=== PATIENT | female | born 1990 | race Caucasian/White ===

== ENCOUNTER 2017-02-08 19:43 | Emergency (ER) | payer MEDICAID, OTHER ==
[~2017-02-08] VITALS: Ht 172.7 cm; Wt 104.3 kg
[~2017-02-08 19:43] MED LIST: PARO-49 PO
[2017-02-08] MEDS ORDERED: LEVO75TA6 (19:53)
[2017-02-08] MEDS ORDERED: CETI10TA17 (19:53)
[2017-02-08] MEDS ORDERED: OMEP20CA12 (19:53)
[2017-02-08] MEDS ORDERED: TRAM50TA2 (19:53)
--- NOTE | 2017-02-08 19:56 | ED GU-Female ---
General Chief Complaint: -Female Stated Complaint: ABD PAIN Nursing Triage Note: patient reports 2 days of cramping along with her menstrual period Nursing Sepsis Screen: No Definite Risk Source: patient Exam Limitations: no limitations History of Present Illness Time seen by provider: 19:56 Initial Comments 26-year-old female patient presents to the emergency department complains of today onset of lower abdominal cramping with her menstrual period. States menstrual period started on 02/06/17. Previous menstrual period was on . States she is very irregular. Patient states she has had a previous miscarriage and was concerned that she was maybe having a miscarriage today. Denies taking a test at home. Patient denies any symptoms which would make her think she was . Denies contacting her family practitioner. Denies taking Tylenol or ibuprofen at home. Timing/Duration: intermittent, other (2 day onset.) Severity/Quality: cramping Location: suprapubic Radiation: none Activities at Onset: none Prior Genitourinary Problems: similar symptoms Sexual Golden History: less than 2 months ago, single partner Modifying Factors: Worsens With Other (denies modifying factors. Denies using jpfs-zvv-uljzdco medication for symptoms.) Allergies and Home Medications Allergies Coded Allergies: latex (Verified Allergy, Unknown, 10/16/15) Home Medications Cetirizine HCl 10 Mg Tablet #30 (Reported) Levothyroxine Sodium 75 Mcg Tablet #90 (Reported) Omeprazole 20 Mg Capsule.dr #180 (Reported) Ondansetron 8 Mg Tab.rapdis #10 8 MG PO Q6H PRN PRN NAUSEA Prescribed by: DINO SMITH on 02/08/172106 Tramadol HCl 50 Mg Tablet #28 (Reported) Constitutional: no symptoms reported Respiratory: no symptoms reported Cardiovascular: no symptoms reported Gastrointestinal: see HPI abdominal pain (suprapubic abdominal cramping)No constipation, No diarrhea, No heartburn, No loss of appetite, No melena, nauseaNo vomiting Genitourinary: see HPIdenies burning, denies discharge, denies dysuria, denies frequency, denies flank pain, denies hematuria, pain (suprapubic abdominal cramping) Musculoskeletal: no symptoms reported Skin: no symptoms reported Psychiatric/Neurological: No Symptoms Reported All Other Systemes Reviewed Negative Unless Noted: Yes (Negative excepted noted.) Past Cwiiimu-Jyhpkq-Nhghkm Hx Patient Social History Alcohol Use: Occasionally Uses Recreational Drug Use: No Smoking Status: Current Someday Smoker Type Used: Cigarettes Recent Foreign Travel: No Contact w/Someone Who Travel: No Recent Infectious Disease Expo: No Recent Hopitalizations: No Immunizations Up To Date Tetanus Booster (TDap): Unknown Surgeries HX Surgeries: Yes (BREAST BIOPSY--BENIGN) Surgeries: Breast Respiratory Hx Respiratory Disorders: No Cardiovascular Hx Cardiac Disorders: No Neurological Hx Neurological Disorders: No Reproductive System Hx Reproductive Disorders: No Sexually Transmitted Disease: No HIV/AIDS: No Female Reproductive Disorders: Denies Genitourinary Hx Genitourinary Disorders: No Gastrointestinal Hx Gastrointestinal Disorders: No Musculoskeletal Hx Musculoskeletal Disorders: No Endocrine Hx Endocrine Disorders: No HEENT HX ENT Disorders: No Cancer Hx Cancer: No Psychosocial Hx Psychiatric Problems: Yes Behavioral Health Disorders: Depression Integumentary HX Skin/Integumentary Disorder: No Blood Transfusions Hx Blood Disorders: No Adverse Reaction to a Blood Tr: No Reviewed Nursing Assessment Reviewed/Agree w Nursing PMH: Yes Family Medical History Significant Family History: No Pertinent Family Hx Physical Exam Vital Signs Vital Sign - Last 12Hours 02/08/17 19:50 Temp 98.4 Pulse 85 Resp 18 B/P 119/82 Pulse Ox 97 Capillary Refill : Less Than 3 Seconds General Appearance: WD/WN no apparent distress HEENT: PERRL/EOMI pharynx normal Neck: supple normal inspection Cardiovascular: regular rate, rhythm no murmur Respiratory: lungs clear normal breath sounds no respiratory distress Gastrointestinal: normal bowel sounds soft no organomegalyNo distended, guarding (right upper quadrant and epigastric)No rebound, tenderness ( bilateral upper quadrant and epigastric. Unable to reproduce lower abdominal tenderness.) other (positive Colvin sign. Patient denies knowledge of upper abdominal pain or tenderness. Denies previous history of similar symptoms.) Back: normal inspection no CVA tenderness Extremities: normal inspection normal capillary refill Neurologic/Psychiatric: alert normal mood/affect oriented x 3 Skin: normal color warm/dry Focused Exam Lactic Acid Level Laboratory Tests Test 02/08/17 20:20 Alanine Aminotransferase (ALT/SGPT) 22U/L (0-55) Albumin 3.8G/DL (3.2-4.5) Alkaline Phosphatase 96U/L (40-136) Anion Gap 12MMOL/L (5-14) Aspartate Amino Transf (AST/SGOT) 20U/L (5-34) BUN/Creatinine Ratio 14 Blood Urea Nitrogen 11MG/DL (7-18) Calcium Level 9.0MG/DL (8.5-10.1) Carbon Dioxide Level 20MMOL/L (21-32) L Chloride Level 109MMOL/L (98-107) H Creatinine 0.76MG/DL (0.60-1.30) Estimat Glomerular Filtration Rate > 60 Glucose Level 100MG/DL (70-105) Lipase 19U/L (8-78) Potassium Level 4.2MMOL/L (3.6-5.0) Sodium Level 141MMOL/L (135-145) Total Bilirubin 0.2MG/DL (0.1-1.0) Total Protein 6.4G/DL (6.4-8.2) Progress/Results/Core Measures Results/Orders Lab Results Laboratory Tests Test 02/08/17 19:59 02/08/17 20:20 Range/Units Urine Bacteria TRACE /HPF Urine Bilirubin NEGATIVE NEGATIVE Urine Casts NONE /LPF Urine Clarity SLIGHTLY CLOUDY Urine Color YELLOW Urine Crystals NONE /LPF Urine Culture Indicated NO Urine Glucose (UA) NEGATIVE NEGATIVE Urine Ketones NEGATIVE NEGATIVE Urine Leukocyte Esterase NEGATIVE NEGATIVE Urine Mucus NEGATIVE /LPF Urine Nitrite NEGATIVE NEGATIVE Urine Protein NEGATIVE NEGATIVE Urine RBC 10-25 H /HPF Urine RBC (Auto) 5+ H NEGATIVE Urine Specific [place] 1.010 L 1.016-1.022 Urine Squamous Epithelial Cells 2-5 /HPF Urine Urobilinogen NORMAL NORMAL MG/DL Urine WBC NONE /HPF Urine pH 7 5-9 Alanine Aminotransferase (ALT/SGPT) 22 0-55 U/L Albumin 3.8 3.2-4.5 G/DL Alkaline Phosphatase 96 40-136 U/L Anion Gap 12 5-14 MMOL/L Aspartate Amino Transf (AST/SGOT) 20 5-34 U/L BUN/Creatinine Ratio 14 Basophils # (Auto) 0.0 0.0-0.1 10^3/uL Basophils (%) (Auto) 0 0-10 % Blood Urea Nitrogen 11 7-18 MG/DL Calcium Level 9.0 8.5-10.1 MG/DL Carbon Dioxide Level 20 L 21-32 MMOL/L Chloride Level 109 H 98-107 MMOL/L Creatinine 0.76 0.60-1.30 MG/DL Eosinophils # (Auto) 0.2 0.0-0.3 10^3/uL Eosinophils (%) (Auto) 2 0-10 % Estimat Glomerular Filtration Rate > 60 Glucose Level 100 70-105 MG/DL Hematocrit 38 35-52 % Hemoglobin 12.7 11.5-16.0 G/DL Lipase 19 8-78 U/L Lymphocytes # (Auto) 3.2 1.0-4.0 X 10^3 Lymphocytes (%) (Auto) 32 12-44 % Mean Corpuscular Hemoglobin 30 25-34 PG Mean Corpuscular Hemoglobin Concent 33 32-36 G/DL Mean Corpuscular Volume 90 80-99 FL Mean Platelet Volume 10.2 7.4-10.4 FL Monocytes # (Auto) 0.7 0.0-1.0 X 10^3 Monocytes (%) (Auto) 7 0-12 % Neutrophils # (Auto) 5.9 1.8-7.8 X 10^3 Neutrophils (%) (Auto) 59 42-75 % Platelet Count 334 130-400 10^3/uL Potassium Level 4.2 3.6-5.0 MMOL/L Red Blood Count 4.27 L 4.35-5.85 10^6/uL Red Cell Distribution Width 13.6 10.0-14.5 % Sodium Level 141 135-145 MMOL/L Total Bilirubin 0.2 0.1-1.0 MG/DL Total Protein 6.4 6.4-8.2 G/DL White Blood Count 10.0 4.3-11.0 10^3/uL My Orders Orders-DINO SMITH Ua Culture If Indicated (02/08/17 19:58) Urine Bedside (02/08/17 19:58) Cbc With Automated Diff (02/08/17 20:10) Comprehensive Metabolic Panel (02/08/17 20:10) Lipase (02/08/17 20:10) Saline Lock/Iv-Start (02/08/17 20:10) Us Gallbladder [id number] (02/08/17 20:10) Ketorolac Injection (Toradol Injection) (02/08/17 20:10) Ondansetron Injection (Zofran Injectio (02/08/17 20:15) Ns Iv 1000 Ml (Sodium Chloride 0.9%) (02/08/17 20:10) Medications Given in ED Current Medications Medications Dose Ordered Sig/Ena Route Start Time Stop Time Status Last Admin Dose Admin Ondansetron HCl 4 mg 4 mg ONCE ONCE IVP 02/08/17 20:15 02/08/17 20:16 DC 02/08/17 20:33 4 MG Sodium Chloride 1,000 ml @ 0 mls/hr Q0M ONCE IV 02/08/17 20:10 02/08/17 20:12 DC 02/08/17 20:33 0 MLS/HR Vital Signs/I&O Vital Sign - Last 12Hours 02/08/17 19:50 Temp 98.4 Pulse 85 Resp 18 B/P 119/82 Pulse Ox 97 Blood Pressure Mean: 94 Diagnostic Imaging Diagonstic Imaging: Ultrasound Plain Films/CT/US/NM/MRI: other (gallbladder) Comments Discussion: Sonographic evaluation of the right upper quadrant was performed. The liver is enlarged, measuring 20.4 cm on the right. The liver is normal in echotexture. No liver mass identified. The gallbladder is contracted. No shadowing stone identified. No pericholecystic fluid. No evidence of biliary duct dilatation. The common bile duct is normal measuring 0.5 cm. The pancreas is mostly obscured due to overlying bowel gas. The right kidney appears normal in echotexture and size without evidence of hydronephrosis or renal mass. The right kidney measures 10.4 cm. There is no ascites or abnormal bowel loops identified. No sonographic Colvin sign was reported. Impression: 1. Hepatomegaly. 2. Contracted gallbladder. Dictated on workstation # [id number] Reviewed: Reviewed by Me (radiology report reviewed by me) Departure Communication Progress Notes Laboratory and diagnostic findings discussed with the patient. Patient noted to be playing on her phone and laying on her right side. Patient reports symptoms are completely resolved with medications given in the emergency department. Patient now stating she has appointment tomorrow with Dayday Ga APRN for regular checkup. Patient instructed to follow-up with him as previously scheduled tomorrow. Proceed with discharge to home. Impression Impression: Primary Impression: Menstrual cramps Additional Impressions: Right upper quadrant abdominal tenderness Qualified Code: R10.821 - Right upper quadrant rebound abdominal tenderness Nausea Disposition: 01 HOME, SELF-CARE Condition: Improved Departure-Patient Inst. Decision time for Depature: 21:10 Referrals: [facility] (PCP/Family) Primary Care Physician Patient Instructions: Acute Abdomen (Belly Pain), Adult (DC), Menstrual Cramps (DC) Add. Discharge Instructions: All discharge instructions reviewed with patient and/or family. Voiced understanding. Medications as instructed. Tylenol extra strength over-the- counter as directed for pain or cramps. Ibuprofen 800 mg by mouth every 8 hours as needed for pain or cramps. Drink plenty of fluids. Follow-up with your primary care physician for recheck as an outpatient, call tomorrow morning for appointment time. Return to the emergency department for worsened symptoms or any other concerns. Scripts Ondansetron (Ondansetron Odt)8 Mg Tab.rapdis8 Mg PO Q6H PRN NAUSEA #10 TAB Ref 0 Prov:DINO SMITH 02/08/17 DINO SMITH Feb 08, 2017 19:56
[2017-02-08 20:05] LABS: BILIRUBIN,URINE NEGATIVE (NEGATIVE); KETONES,URINE NEGATIVE (NEGATIVE); LEUKOCYTE ESTERASE ,URINE NEGATIVE (NEGATIVE); NITRITE,URINE NEGATIVE (NEGATIVE); PH,URINE 7 (5-9); PROTEIN,URINE NEGATIVE (NEGATIVE); UROBILINOGEN,URINE NORMAL (NORMAL)
[2017-02-08] MEDS ORDERED: NS IV 1000 ML 1,000 ML IV ONE (20:10)
[2017-02-08] MEDS ORDERED: KETOROLAC 30 MG/ML VIAL IVP STA (20:10)
[2017-02-08] MEDS ORDERED: ONDANSETRON 4 MG/2 ML (SDV) Z0FRAN IVP ONE (20:15)
[2017-02-08 20:32] LABS: BASOPHILS % (AUTO) 0 % (0-10); EOSINOPHILS % (AUTO) 2 % (0-10); LYMPHOCYTES % (AUTO) 32 % (12-44); MEAN CORPUSCULAR HGB CONC 33 G/DL (32-36); MEAN CORPUSCULAR VOLUME 90 FL (80-99); MEAN PLATELET VOLUME 10.2 FL (7.4-10.4); MONOCYTES % (AUTO) 7 % (0-12); NEUTROPHILS % (AUTO) 59 % (42-75); RED CELL DISTRIBUTION WIDTH 13.6 % (10.0-14.5)
[2017-02-08 20:35] LABS: LYMPHOCYTES # (AUTO) 3.2 X 10^3 (1.0-4.0); MEAN CORPUSCULAR HEMOGLOBIN 30 PG (25-34); NEUTROPHILS # (AUTO) 5.9 X 10^3 (1.8-7.8); PLATELET COUNT 334 10^3/uL (130-400); RED BLOOD COUNT 4.27 10^6/uL (4.35-5.85)
[2017-02-08 20:36] LABS: EOSINOPHILS # (AUTO) 0.2 10^3/uL (0.0-0.3); MONOCYTES # (AUTO) 0.7 X 10^3 (0.0-1.0)
--- NOTE | 2017-02-08 20:44 | Diagnostic Imaging Report ---
Procedure: US gallbladder. Technique: Multiple real-time grayscale images were obtained over the right upper quadrant in various projections. Indication: Right upper quadrant pain. Comparison: None. Discussion: Sonographic evaluation of the right upper quadrant was performed. The liver is enlarged, measuring 20.4 cm on the right. The liver is normal in echotexture. No liver mass identified. The gallbladder is contracted. No shadowing stone identified. No pericholecystic fluid. No evidence of biliary duct dilatation. The common bile duct is normal measuring 0.5 cm. The pancreas is mostly obscured due to overlying bowel gas. The right kidney appears normal in echotexture and size without evidence of hydronephrosis or renal mass. The right kidney measures 10.4 cm. There is no ascites or abnormal bowel loops identified. No sonographic Colvin sign was reported. Impression: 1. Hepatomegaly. 2. Contracted gallbladder. Dictated by: Dictated on workstation # [id number]
[2017-02-08 20:58] LABS: ALANINE AMINOTRANSFERASE 22 U/L (0-55); ALBUMIN 3.8 G/DL (3.2-4.5); ANION GAP 12 MMOL/L (5-14); ASPARTATE AMINO TRANSFERASE 20 U/L (5-34); BILIRUBIN,TOTAL 0.2 MG/DL (0.1-1.0); BLOOD UREA NITROGEN 11 MG/DL (7-18); BUN/CREATININE RATIO 14; CARBON DIOXIDE 20 MMOL/L (21-32); CHLORIDE 109 MMOL/L (98-107); CREATININE SERUM 0.76 MG/DL (0.60-1.30); GFR ESTIMATED > 60; GLUCOSE 100 MG/DL (70-105); LIPASE 19 U/L (8-78); POTASSIUM 4.2 MMOL/L (3.6-5.0); SODIUM 141 MMOL/L (135-145); TOTAL PROTEIN 6.4 G/DL (6.4-8.2)
[2017-02-08] MEDS ORDERED: ONDA8TAB13 PO (21:07)
[2017-02-08 21:16] VITALS: BP 119/82
== END 2017-02-08 21:16 | disposition home or self-care (01) ==
LOC: EDUNIT# 19:43 → ER 19:45
DX: N94.6 Dysmenorrhea, unspecified (principal); R10.11 Right upper quadrant pain; K82.0 Obstruction of gallbladder; R16.0 Hepatomegaly, not elsewhere classified; F17.210 Nicotine dependence, cigarettes, uncomplicated
CPT/HCPCS: 36415; 76705; 80053; 81000; 83690; 84703; 85025; 96374; 96375

== ENCOUNTER → 2017-02-20 | Outpatient (CLI) | payer MEDICAID ==
[~2017-02-20] MED LIST changes: +CATHETER FLUSH 10 ML SYR IV PRN; +CETI10TA17; +CETI10TA20 PO; +DOCU-143 PO; +HYDR-3812 PO; +LEVO100T7 PO; +LEVO75TA6; +OMEP20CA12; +OMEP40CA36 PO; +ONDA8TAB13 PO; +TRAM50TA2
--- NOTE | 2017-02-20 15:08 | Diagnostic Imaging Report ---
EXAMINATION: HIDA with EF measurements Indication: Abdominal pain TECHNIQUE: After the intravenous administration of 4.9 mCi of Tc 99m Choletec, imaging over the abdomen was obtained. This was followed by administration of Ensure orally to stimulate intrinsic CCK secretion, followed by continued imaging with ejection fraction measured. FINDINGS: There is homogeneous uptake in the liver with prompt bile duct and gallbladder filling seen. Bowel activity is seen at Tana minutes. Based on further imaging and gallbladder area of interest activity measurements after the administration of Ensure, the gallbladder ejection fraction is estimated at 28%. IMPRESSION: 1. Normal hepatobiliary uptake and Gallbladder filling. 2. Biliary dyskinesia. Decreased gallbladder ejection fraction. Dictated by: Dictated on workstation # [id number]
== END ==
LOC: CARD 11:40
PROVIDERS: ATTEND Nurse Practitioner Community Health
DX: R10.11 Right upper quadrant pain (principal)
CPT/HCPCS: 78227

== ENCOUNTER 2017-03-02 05:31 | Outpatient (CLI) | payer MEDICAID ==
[~2017-03-02] VITALS: Ht 172.7 cm; Wt 104.3 kg
[~2017-03-02 05:31] MED LIST changes: -CATHETER FLUSH 10 ML SYR IV PRN; -CETI10TA20 PO; -DOCU-143 PO; -HYDR-3812 PO; -LEVO100T7 PO; -OMEP40CA36 PO
[2017-03-02] MEDS ORDERED: CETI10TA20 PO (10:05)
[2017-03-02] MEDS ORDERED: OMEP40CA36 PO (10:05)
[2017-03-02] MEDS ORDERED: LEVO100T7 PO (10:05)
== END 2017-03-02 10:13 ==
LOC: PREOP 05:31
PROVIDERS: ATTEND Surgery
DX: Z01.818 Encounter for other preprocedural examination (principal); K82.8 Other specified diseases of gallbladder

== ENCOUNTER 2017-03-09 09:33 | Day surgery (SDC) | payer MEDICAID ==
[~2017-03-09] VITALS: Ht 172.7 cm; Wt 104.3 kg
[~2017-03-09 09:33] MED LIST changes: +CETI10TA20 PO; +LEVO100T7 PO; +OMEP40CA36 PO
[2017-03-09] MEDS: LACTATED RINGERS 1,000 ML IV PRN ×2 (09:55→12:00)
[2017-03-09] MEDS ORDERED: ONDANSETRON 4 MG/2 ML (SDV) Z0FRAN IV ONE (10:00)
[2017-03-09] MEDS ORDERED: ceFAZolin 2 GM/NS 50 ML IV ONE (10:00)
[2017-03-09] MEDS ORDERED: FAMOTIDINE 20MG/2ML IV (PEPCID) IV ONE (10:00)
[2017-03-09] MEDS ORDERED: CATHETER FLUSH 10 ML SYR IV PRN (10:00)
[2017-03-09 10:03] VITALS: BP 102/75
[2017-03-09] MEDS ORDERED: MIDAZOLAM 2 MG/2 ML (VERSED) VIAL ONE (10:59)
[2017-03-09] MEDS ORDERED: LACTATED RINGERS 1,000 ML IV ONE ×2 (10:59→12:47)
[2017-03-09] MEDS ORDERED: SEVOFLURANE (ULTANE) 15 ML INHAL SOLN ONE ×4 (10:59→12:52)
[2017-03-09] MEDS ORDERED: proPOfol 200 MG/20 ML (DIPRIVAN) VIAL IV ONE (10:59)
[2017-03-09] MEDS ORDERED: fentaNYL INJECTION 250 MCG/5 ML AMP ONE (11:00)
[2017-03-09] MEDS ORDERED: ROCURONIUM 50 MG/5 ML (ZEMURON) VIAL IV ONE (11:00)
[2017-03-09] MEDS ORDERED: LIDOCAINE PF 2% 10 ML (XYLOCAINE) AMP ONE (11:00)
[2017-03-09] MEDS ORDERED: ONDANSETRON 4 MG/2 ML (SDV) Z0FRAN ONE (11:00)
[2017-03-09] MEDS ORDERED: DEXAMETHASONE PF 10 MG/ML (DECADRON) VIAL ONE (11:00)
[2017-03-09] MEDS ORDERED: LIDOCAINE 1% INJ 20 ML (XYLOCAINE) VIAL ONE (11:08)
[2017-03-09] MEDS ORDERED: BUPIVACAINE 0.5% 30 ML (SENSORCAINE) VIAL ONE (11:08)
--- NOTE | 2017-03-09 11:41 | Progress Note-Pre Operative ---
Pre-Operative Progress Note H&P Reviewed The H&P was reviewed, patient examined and no changes noted. Date H&P Reviewed: Mar 09, 2017 Time H&P Reviewed: 11:41 Pre-Operative Diagnosis: biliary dyskinesia CARRIE CAMPBELL DO Mar 09, 2017 11:41 am
[2017-03-09] MEDS ORDERED: DOCU-143 PO (11:49)
[2017-03-09] MEDS ORDERED: HYDR-3812 PO (11:49)
--- NOTE | 2017-03-09 11:50 | Discharge Inst-Simple/Standard ---
Discharge Inst-Standard Discharge Medications New, Converted or Re-Newed RX: RX on Chart Patient Instructions/Follow Up Plan of Care/Instructions/FU: Follow up with Dr. Guerrero in 2 weeks Activity as Tolerated: No Discharge Diet: No Restrictions Other Inst to Patient Follow up Appt: Make appointment for 2 weeks. Instructions: No lifting greater than 10 pounds. No strenuous activity. May shower in 24 hours, no tub bath or soaking. Use incentive spirometer at home as directed. No Smoking Skin/Wound Care: May remove bandages. You need to leave the white strips over incision on they will fall off on their own. Symptoms to Report: Appetite Changes, Extremity Discoloration, Numbness/Tingling, Swelling Increased , Bleeding Excessive, Eyesight Changes, Pain Increased, Urine Color Change, Constipation(Persistent), Fever over 101 degree F, Pain/Pressure in chest, Urinating Difficulty, Cough Up/Vomit Blood, Heart Beat Irreg/Pounding, Pain/ Pressure in jaw, Vaginal Bleeding Increase, Cramps in feet or legs, Lightheadedness, Pain/Pressure in shoulder, Diarrhea(Persistent), Memory Changes Suddenly, Questions/Concerns, Weight gain consecutive days, Dizziness/ Fainting, Nausea/Vomiting, Shortness of Breath, Weight gain over 2 pounds. If eyes or skin turn yellow notify physician. If questions or concerns contact your physician Or seek help at emergency department. CHRISTIANO SOUZA APRN Mar 09, 2017 11:50
[2017-03-09] MEDS ORDERED: GLYCOPYRROLATE 0.2 MG/ML (ROBINUL) 2 ML VIAL ONE (12:47)
[2017-03-09] MEDS ORDERED: NEOSTIGMINE (BLOXIVERZ ) 1 MG/1ML 10 ML VIAL ONE (12:47)
--- NOTE | 2017-03-09 12:52 | Progress Note-Post Operative ---
Post-Operative Progess Note Surgeon (s)/Architecture Internship (s) Surgeon CARRIE CAMPBELL DO Architecture Internship: Dr. Rodriguez Pre-Operative Diagnosis biliary dyskinesia Post-Operative Diagnosis same Post-Op Procedure Note Date of Procedure: Mar 09, 2017 Name of Procedure Performed: lap geraldo c ioc Description of the Procedure: see note Findings of the Procedure see note Anesthesia Type general Estimated blood loss (mL): minimal Specimen(s) collected/removed gallbladder CARREI CAMPBELL DO Mar 09, 2017 12:52 pm
[2017-03-09] MEDS ORDERED: ONDANSETRON 4 MG/2 ML (SDV) Z0FRAN IVP PRN (13:15)
[2017-03-09] MEDS ORDERED: morphine INJ 10 MG/ML 1ML (SYR OR VIAL) ONE (13:22)
[2017-03-09] MEDS: morphine INJ 10 MG/ML 1ML (SYR OR VIAL) IVP PRN ×2 (13:29→13:35)
[2017-03-09 14:00] VITALS: BP 126/77
[2017-03-09] MEDS ORDERED: HYDROcodone/APAP 5 MG/325 MG (LORTAB) TAB ONE (14:04)
[2017-03-09 14:30] VITALS: BP 112/70
[2017-03-09 15:00] VITALS: BP 115/76
--- NOTE | 2017-03-09 15:28 | OPERATIVE REPORT ---
DATE OF SERVICE: 03/09/2017 PREOPERATIVE DIAGNOSIS: Biliary dyskinesia. POSTOPERATIVE DIAGNOSIS: Biliary dyskinesia. PROCEDURE: Laparoscopic cholecystectomy with intraoperative cholangiogram. SURGEON: CARRIE CAMPBELL DO REGISTERED NURSE MATERNITY: Dr. Rodriguez, assisted with retraction, dissection, and closure. ANESTHESIA: General. ESTIMATED BLOOD LOSS: Minimal. COMPLICATIONS: None. INDICATIONS: The patient is a 26-year-old female who has been having abdominal pain. Her workup consistent with biliary dyskinesia. She understands the risks and benefits of procedure and elected to proceed with the procedure. Consent was signed on chart. DESCRIPTION OF THE PROCEDURE: The patient was taken to the operating suite. She was prepped and draped in sterile fashion. Surgical pause was performed. Local anesthesia with 0.5% Marcaine and 1% lidocaine 50/50 ratio was used to anesthetize trocar sites from previous 2 incisions. A 12 mm incision was made just superior to the umbilicus. Cautery used to dissect down to the fascia, grasped and elevated with Kochers. The abdomen was then entered. Then, 0 Vicryl suture placed in [id number] fashion at the fascia for closure at the end of the procedure. Balloon trocar was then inserted into the abdomen and pneumoperitoneum was achieved. Under direct visualization with laparoscope a 5 mm trocar was then placed in the subxiphoid region and two, 5 mm trocars were placed in the right upper quadrant. The gallbladder had some adhesions to it near the neck of the gallbladder. The gallbladder was grasped and elevated. The cystic duct and cystic artery were then dissected out, clips were placed on the proximal portion and distal portion of the cystic artery. Clips were placed on the distal portion of the cystic duct. The cystic duct was then partially transected and Arrow catheter was inserted and cholangiogram was performed. There were no filling defects. Contrast made its way into the duodenum. The catheter was removed. Clips were placed on the proximal portion of the cystic duct and the duct was then completely transected along with the cystic artery completely transected. Hook cautery was used to dissect the gallbladder from the gallbladder fossa achieving hemostasis. Once removed, was placed in an endobag and removed through the 12 mm trocar site. The abdomen was then irrigated with copious amounts of irrigation and suction. The abdomen was then desufflated. The trocars were removed. At the 12 mm fascia defect the 0 Vicryl was then tied. The skin was then closed using 4-0 Monocryl in a subcuticular fashion. The skin was then washed and dried. Mastisol and Steri-Strips were applied. Sterile bandages were applied. The patient tolerated the procedure well without any complications. She was taken to the recovery room in stable condition. Job ID: [id number] DocumentID: [id number] Dictated Date: 03/09/2017 14:22:53 Recreational Therapy Technician Date: 03/09/2017 15:27:22 Dictated By: DO JAY BAUTISTA
--- NOTE | 2017-03-09 15:53 | Diagnostic Imaging Report ---
Indication: Right upper quadrant pain. Discussion: Fluoroscopic support was provided during intraoperative cholangiogram. Please see the operative report for full detail. There is progression of contrast into the duodenum. Fluoroscopy time: 14 seconds. Impression: 1. Intraoperative cholangiogram. Dictated by: Dictated on workstation # [id number]
[2017-03-09 16:05] VITALS: BP 115/76
== END 2017-03-09 16:05 | disposition home or self-care (01) ==
LOC: SDC 09:33
PROVIDERS: ATTEND Surgery
DX: K81.1 Chronic cholecystitis (principal)
CPT/HCPCS: 84703; 87081; 88304

== ENCOUNTER 2018-05-13 20:23 | Emergency (ER) | payer MEDICAID ==
[~2018-05-13] VITALS: Ht 172.7 cm; Wt 117.9 kg
[~2018-05-13 20:23] MED LIST changes: +ACHD5005 PO; +DOCU-143 PO
--- OUTSIDE RECORDS SUMMARY | 2018-05-13 20:29 | XMS REPORT ---
Author Author VIBHA ANDRADE [facility] Address [address] [place] [address] Care Team Providers Care Assistant Professor Surgical Technology Name Role Phone VIBHA ANDRADE Unavailable PROBLEMS Type Condition ICD9-CM Code [id number] Code Onset Dates Condition Status SNOMED Code Problem URI (upper respiratory infection) J06.9 Active 95890574 Problem Cough R05 Active 30821485 Problem Depressive disorder, not elsewhere classified F32.9 Active 87312543 Problem Anxiety state, unspecified F41.1 Active 327905424 Problem Acquired hypothyroidism E03.9 Active 714313610 Problem RLS (restless legs syndrome) G25.81 Active 64609588 Problem Hypothyroidism (acquired) E03.9 Active 008383069 Problem Morbid obesity due to excess calories E66.01 Active 246770990 ALLERGIES Substance Reaction Event Type Date Status Latex Unknown Non Drug Allergy Nov, Active SOCIAL HISTORY No smoking Hx information available PLAN OF CARE Activity Details Follow Up prn Reason: VITAL SIGNS Height 68 in 2016-11-29 Weight 263.4 lbs 2016-11-29 Temperature 97.9 degrees Fahrenheit 2016-11-29 Heart Rate 98 bpm 2016-11-29 Respiratory Rate 18 2016-11-29 BMI 40.05 kg/m2 2016-11-29 Blood pressure systolic 104 mmHg 2016-11-29 Blood pressure diastolic 78 mmHg 2016-11-29 MEDICATIONS Medication Instructions Dosage Frequency Start Date End Date Duration Status Levothyroxine Sodium 75 mcg Orally Once a day 1 tablet on an empty stomach in the morning 24h Aug, 30 day(s) Active Zofran ODT 4 MG Orally every 8 hours, PRN 1 tablet on the tongue and allow to dissolve Nov, 03 days Active Tramadol HCl 50 mg Orally Once a day 1 tablet as needed 24h Sep, Active Zyrtec Allergy Active Vitamins 0.8 MG Orally Once a day 1 tablet 24h Active Omeprazole 20 mg Orally Once a day 2 capsules 24h Jul, 30 day(s ) Active RESULTS No Results PROCEDURES Procedure Date Ordered Related Diagnosis Body Site Office Visit, Est Pt., Level 3 Nov 29, 2016 IMMUNIZATIONS No Known Immunizations
--- OUTSIDE RECORDS SUMMARY | 2018-05-13 20:30 | XMS REPORT ---
Author Author ARMANDO ROBERTSON Organization [facility] Address [address] [place] [address] Care Team Providers Care Gasket Notcher Name Role Phone ARMANDO ROBERTSON Unavailable PROBLEMS Type Condition ICD9-CM Code [id number] Code Onset Dates Condition Status SNOMED Code Problem Depressive disorder, not elsewhere classified F32.9 Active 45993809 Problem Anxiety state, unspecified F41.1 Active 455169576 Problem RLS (restless legs syndrome) G25.81 Active 06768505 Problem Hypothyroidism (acquired) E03.9 Active 707079166 Problem Acquired hypothyroidism E03.9 Active 044086474 ALLERGIES No Information ENCOUNTERS Encounter Location Date Diagnosis [facility] [address] [address] Feb, Sore throat J02.9 and Seasonal allergic rhinitis, unspecified trigger J30.[address] [address] Jan, Controlled substance agreement signed Z79.899 and Acute non- recurrent maxillary sinusitis J01.00 [facility] [id number] [place] [address]24 [address] Jan, Acute non-recurrent maxillary sinusitis J01.00 and Body aches R52 [facility] [id number] [place] [address]78 Dec, Viral gastroenteritis A08.[address] [address] Nov, Morbid obesity due to excess calories E66.01 [facility] [id number] [place] [address] 28982- 1343 Nov, Morbid obesity due to excess calories E66.01 [facility] [id number] [place] [address]3954 [address]2702 Oct, Body aches R52 and Viral illness B34.9 [facility] [id number] [place] [address]45 [address]0657 Oct, [place] [id number] [place] [address] 93132- 1850 Oct, Morbid obesity due to excess calories E66.01 [place] [id number] [place] [address] 64033- 5058 Aug, Morbid obesity due to excess calories E66.01 [place] [address] [address] Jul, Morbid obesity due to excess calories E66.01 [facility] [place] [id number] [place] [address]25 [address] Jun, Abdominal pain R10.9 and Cystitis N30.90 [place] [id number] [place] [address] 36371- 9045 Jun, Morbid obesity due to excess calories E66.01 [facility] [id number] [place] [address] 73934 -9905 May, Acute gastroenteritis K52.9 [place] [id number] [place] [address] 59104- 6324 May, Anxiety state, unspecified F41.1 [place] [id number] [place] [address] 00438- 3152 May, Depressive disorder, not elsewhere classified F32.9 and Anxiety state, unspecified F41.1 [facility] [id number] [place] [address]60 -9948 May, Tachycardia R00.0 and Acute upper respiratory infection, unspecified J06.9 [place] [id number] [place] [address] 27195- 4244 May, Hypothyroidism (acquired) E03.9 ; Acquired hypothyroidism E03.9 and Morbid obesity due to excess calories E66.01 [facility] [id number] [place] [address]12 -9243 March, Strep throat J02.0 and Sore throat J02.9 [facility] [id number] [place] [address] 66075- 8598 Feb, Acquired hypothyroidism E03.9 [facility] [id number] [place] [address] 63515- 4395 Feb, Acquired hypothyroidism E03.9 [facility] [address] 38724- 8518 Feb, Acquired hypothyroidism E03.9 [facility] [id number] [place] [address] 78788- 9902 Jan, Acute bilateral low back pain without sciatica M54.5 [facility] [id number] [place] [address] 38414- 0739 Jan, [facility] [address] 29362- 8823 Jan, Acquired hypothyroidism E03.9 [facility] [id number] [place] [address] 31476- 4873 Jan, Acquired hypothyroidism E03.9 [facility] [id number] [place] [address] 28215- 6826 Jan, Acquired hypothyroidism E03.9 and Right upper quadrant abdominal pain R10.11 [facility] [id number] [place] [address] 31214- 3151 Nov, Acquired hypothyroidism E03.9 [facility] [id number] [place] [address] 20737 -2622 Nov, Acute non-recurrent frontal sinusitis J01.10 [facility] [id number] [place] [address] 03860 -2725 Nov, Viral gastroenteritis A08.4 [place] [id number] [place] [address] 59429- 3656 Oct, Acquired hypothyroidism E03.9 and RLS (restless legs syndrome) G25.81 [place] [id number] [place] [address] 09277- 0051 Sep, Acquired hypothyroidism E03.9 and RLS (restless legs syndrome) G25.81 [facility] [place] [address] 26[address]3378 Aug, Acute non-recurrent maxillary sinusitis J01.00 [place] [address] 58323- 2796 Aug, [place] [address] 66684- 0731 Aug, [place] [address] 43437- 4610 Aug, Family history of PCOS Z84.2 and Well woman exam with routine gynecological exam Z01.419 [place] [address] 85032- 8831 14 Aug, 2016 Family history of PCOS Z84.2 and Well woman exam with routine gynecological exam Z01.419 [place] [id number] [place] [address] 44448- 7751 Jul, [facility] [place] [id number] [place] [address] 43670 -5908 Jun, Viral gastroenteritis A08.4 [facility] [place] [address] 41327 -6210 Jun, Dysuria R30.0 [place] [address] 45793- 0521 May, [facility] [place] [address] 62063 [address]7375 Apr, Left otitis media, unspecified chronicity, unspecified otitis media type H66.92 [place] [id number] [place] [address] 62848- 1797 Apr, Cough R05 [place] [address] 04307- 1109 March, Mild intermittent asthma without complication J45.20 [facility] [address] [address] Feb, Fever R50.9 and Strep throat J02.0 [facility] [address] 964[address] Feb, Body aches R52 ; Sore throat J02.9 ; Amenorrhea N91.2 and Acute sinusitis J01.90 [place] [address] 43271- 8451 Feb, Encounter for test Z32.00 [facility] [address] 19[address]64 Oct, URI (upper respiratory infection) J06.9 and Cough R05 [place] [address] 07367- 6248 Oct, Complete miscarriage O03.9 [place] [address] 76190- 3896 Oct, Complete miscarriage O03.9 [place] [address] 61210- 3094 Oct, Vaginal bleeding during , antepartum O46.90 [place] [address] 01732- 6474 Oct, Abnormal ultrasound of ovary R93.5 [place] [address] 20486- 6427 Sep, Complete miscarriage O03.9 [place] [address] [place] [address]- [address] Sep, [facility] [address] [facility] [id number] [address] Sep, Vaginal bleeding during , antepartum O46.90 IMMUNIZATIONS No Known Immunizations SOCIAL HISTORY Never Assessed REASON FOR VISIT Controlled Med Refill PLAN OF CARE VITAL SIGNS MEDICATIONS Medication Instructions Dosage Frequency Start Date End Date Duration Status Tramadol HCl 50 mg Orally Once a day 1 tablet as needed 24h Sep, 28 days Active RESULTS No Results PROCEDURES No Known procedures INSTRUCTIONS MEDICATIONS ADMINISTERED No Known Medications MEDICAL (GENERAL) HISTORY Type Description Date Medical History depression Medical History hypothyroid Surgical History breast biopsy--left 06/2015 Surgical History cholecystectomy 03/09/17 Hospitalization History Kidney Infection [facility] 15 yoa
--- OUTSIDE RECORDS SUMMARY | 2018-05-13 20:30 | XMS REPORT ---
Author Author ARMANDO ROBERTSON Organization [facility] Address [address] [place] [address] Care Team Providers Care Recording Studio Set Up Worker Name Role Phone ARMANDO ROBERTSON Unavailable PROBLEMS Type Condition ICD9-CM Code [id number] Code Onset Dates Condition Status SNOMED Code Problem Depressive disorder, not elsewhere classified F32.9 Active 22657022 Problem Anxiety state, unspecified F41.1 Active 598093107 Problem RLS (restless legs syndrome) G25.81 Active 80647854 Problem Hypothyroidism (acquired) E03.9 Active 971723723 Problem Acquired hypothyroidism E03.9 Active 911886314 ALLERGIES No Information ENCOUNTERS Encounter Location Date Diagnosis [facility] [address] [address] Jan, Controlled substance agreement signed Z79.899 and Acute non- recurrent maxillary sinusitis J01.00 [facility] [address] [place] [address]334 [address]4776 Jan, Acute non-recurrent maxillary sinusitis J01.00 and Body aches R52 [facility] [address] [place] [address]8564 -6237 Dec, Viral gastroenteritis A08.4 [facility] [address] [address]66 Nov, Morbid obesity due to excess calories E66.01 [facility] [address] [place] [address] 87437- 7450 Nov, Morbid obesity due to excess calories E66.01 [facility] [address] [place] [address] 46384 -8201 Oct, Body aches R52 and Viral illness B34.9 [facility] [address] [address] Oct, [place] [address] [place] [id number] [place] [address] 15809- 2978 Oct, Morbid obesity due to excess calories E66.01 [place] [address] [id number] [place] [address] 23639- 6556 Aug, Morbid obesity due to excess calories E66.01 [place] [id number] [place] [address] 93920- 4086 Jul, Morbid obesity due to excess calories E66.01 [facility] [place] [id number] [place] [address] 58695 -0238 Jun, Abdominal pain R10.9 and Cystitis N30.90 [place] [id number] [place] [address] 95550- 2078 Jun, Morbid obesity due to excess calories E66.01 [facility] [place] [id number] [place] [address] 70231 -8008 May, Acute gastroenteritis K52.9 [place] [id number] [place] [address] 43685- 6382 May, Anxiety state, unspecified F41.1 [place] [id number] [place] [address] 10393- 9798 May, Depressive disorder, not elsewhere classified F32.9 and Anxiety state, unspecified F41.1 [facility] [place] [id number] [place] [address] 41467 -2513 May, Tachycardia R00.0 and Acute upper respiratory infection, unspecified J06.9 [place] [id number] [place] [address] 81143- 9298 May, Hypothyroidism (acquired) E03.9 ; Morbid obesity due to excess calories E66.01 and Acquired hypothyroidism E03.9 [facility] [place] [id number] [place] [address] 64492 -0966 March, Strep throat J02.0 and Sore throat J02.9 [facility] [id number] [place] [address] 07252- 2558 Feb, Acquired hypothyroidism E03.9 [facility] [id number] [place] [address] 87135- 4022 Feb, Acquired hypothyroidism E03.9 [facility] [id number] [place] [address] 89699- 2151 Feb, Acquired hypothyroidism E03.9 [facility] [id number] [place] [address] 07668- 0011 Jan, Acute bilateral low back pain without sciatica M54.5 [facility] [id number] [place] [address] 01987- 2897 Jan, [facility] [id number] [place] [address] 47178- 8027 Jan, Acquired hypothyroidism E03.9 [facility] [id number] [place] [address] 08268- 8158 Jan, Acquired hypothyroidism E03.9 [facility] [id number] [place] [address] 27992- 4588 Jan, Acquired hypothyroidism E03.9 and Right upper quadrant abdominal pain R10.11 [facility] [id number] [place] [address] 14979- 7500 Nov, Acquired hypothyroidism E03.9 [facility] [id number] [place] [address] 50445 -1373 Nov, Acute non-recurrent frontal sinusitis J01.10 [facility] [id number] [place] [address] 08393 -4237 Nov, Viral gastroenteritis A08.4 [facility] [id number] [place] [address] 38341- 2618 Oct, Acquired hypothyroidism E03.9 and RLS (restless legs syndrome) G25.81 [facility] [id number] [place] [address] 31135- 2554 Sep, Acquired hypothyroidism E03.9 and RLS (restless legs syndrome) G25.81 [facility] [id number] [place] [address] 46397 -5297 Aug, Acute non-recurrent maxillary sinusitis J01.00 [facility] [address] [address]1842- 1484 Aug, [place] [address] 65820- 1893 Aug, [place] [address] 79612- 1135 Aug, Family history of PCOS Z84.2 and Well woman exam with routine gynecological exam Z01.419 [place] [address] 88398- 2127 14 Aug, 2016 Family history of PCOS Z84.2 and Well woman exam with routine gynecological exam Z01.419 [place] [address] 67588- 4555 Jul, [facility] [id number] [place] [address] 66411 -8328 Jun, Viral gastroenteritis A08.4 [facility] [address] 54698 -2180 Jun, Dysuria R30.0 [place] [id number] [place] [address] 11692- 7596 May, [facility] [address] 18134 -9340 Apr, Left otitis media, unspecified chronicity, unspecified otitis media type H66.92 [place] [address] 84172- 9641 Apr, Cough R05 [facility] [address] 97[address]- 0636 March, Mild intermittent asthma without complication J45.20 [facility] [address] 36926 -6681 Feb, Fever R50.9 and Strep throat J02.0 [facility] [address] 41673 -7961 Feb, Body aches R52 ; Sore throat J02.9 ; Amenorrhea N91.2 and Acute sinusitis J01.90 [place] [address] 85660- 0098 Feb, Encounter for test Z32.00 [facility] [address] 11154 -0678 Oct, URI (upper respiratory infection) J06.9 and Cough R05 [place] [address] 81733- 8502 Oct, Complete miscarriage O03.9 [place] [address] 40225- 8055 Oct, Complete miscarriage O03.9 [place] [address] 54734- 9412 Oct, Vaginal bleeding during , antepartum O46.90 [place] [address] 02016- 9287 Oct, Abnormal ultrasound of ovary R93.5 [place] [address] 24963- 6014 Sep, Complete miscarriage O03.9 [place] [address] 59644- 0043 Sep, [place] [address] 16123- 4557 Sep, Vaginal bleeding during , antepartum O46.90 IMMUNIZATIONS No Known Immunizations SOCIAL HISTORY Never Assessed REASON FOR VISIT med request PLAN OF CARE VITAL SIGNS MEDICATIONS Medication Instructions Dosage Frequency Start Date End Date Duration Status Paxil 20 MG Orally Once a day 1 tablet in the morning 24h May, 30 day(s) Active RESULTS No Results PROCEDURES No Known procedures INSTRUCTIONS MEDICATIONS ADMINISTERED No Known Medications MEDICAL (GENERAL) HISTORY Type Description Date Medical History depression Medical History hypothyroid Surgical History breast biopsy--left 06/2015 Surgical History cholecystectomy 03/09/17 Hospitalization History Kidney Infection [facility] 15 yoa
--- OUTSIDE RECORDS SUMMARY | 2018-05-13 20:30 | XMS REPORT ---
Author Author ARMANDO ROBERTSON [facility] Address [address] [place] [address] Care Team Providers Care Lye Boiler Name Role Phone ARMANDO ROBERTSON Unavailable PROBLEMS Type Condition ICD9-CM Code [id number] Code Onset Dates Condition Status SNOMED Code Problem Cough R05 Active 82488428 Problem URI (upper respiratory infection) J06.9 Active 02016117 Problem Depressive disorder, not elsewhere classified F32.9 Active 94764196 Problem Anxiety state, unspecified F41.1 Active 375449571 Problem RLS (restless legs syndrome) G25.81 Active 05286635 Problem Acquired hypothyroidism E03.9 Active 535447043 Problem Hypothyroidism (acquired) E03.9 Active 043232526 Problem Morbid obesity due to excess calories E66.01 Active 362660387 ALLERGIES No Information SOCIAL HISTORY Never Assessed PLAN OF CARE VITAL SIGNS MEDICATIONS No Known Medications RESULTS No Results PROCEDURES No Known procedures IMMUNIZATIONS No Known Immunizations MEDICAL (GENERAL) HISTORY Type Description Date Medical History depression Medical History hypothyroid Surgical History breast biopsy--left 06/2015 Surgical History cholecystectomy 03/09/17 Hospitalization History Kidney Infection [facility] 15 yoa
--- OUTSIDE RECORDS SUMMARY | 2018-05-13 20:30 | XMS REPORT ---
Author Author SAGAR CALVO Organization [facility] Address [address] [place] [address] Care Team Providers Care Supervisor Evaporator Name Role Phone SAGAR CALVO Unavailable PROBLEMS Type Condition ICD9-CM Code EGW86-DP Code Onset Dates Condition Status SNOMED Code Problem Depressive disorder, not elsewhere classified F32.9 Active 86155066 Problem Anxiety state, unspecified F41.1 Active 986404092 Problem RLS (restless legs syndrome) G25.81 Active 33341329 Problem Hypothyroidism (acquired) E03.9 Active 498946442 Problem Acquired hypothyroidism E03.9 Active 827860264 ALLERGIES Substance Reaction Event Type Date Status Morphine Sulfate vomiting Drug Allergy Jun, Active Latex Unknown Non Drug Allergy Jun, Active ENCOUNTERS Encounter Location Date Diagnosis [facility] [address] [address] Jan, Controlled substance agreement signed Z79.899 and Acute non- recurrent maxillary sinusitis J01.00 [facility] [id number] [place] [address] Jan, Acute non-recurrent maxillary sinusitis J01.00 and Body aches R52 [facility] [id number] [place] [address] Dec, Viral gastroenteritis A08.4 [facility] [address] [address] Nov, Morbid obesity due to excess calories E66.01 [facility] [address] [address] Nov, Morbid obesity due to excess calories E66.01 [facility] [address] [address] Oct, Body aches R52 and Viral illness B34.9 [facility] [place] [address] [address] [id number] [place] [address]659 Oct, [place] [address] [id number] [place] [address]70[address] 2532 Oct, Morbid obesity due to excess calories E66.01 [place] [address] [address] Aug, Morbid obesity due to excess calories E66.01 [place] [address] [address] Jul, Morbid obesity due to excess calories E66.01 [facility] WALK IN [place] [id number] [place] [address]75 [address] Jun, Abdominal pain R10.9 and Cystitis N30.90 [place] [address] [address] Jun, Morbid obesity due to excess calories E66.01 [facility] WALK IN [place] [id number] [place] [address]862 [address]47 May, Acute gastroenteritis K52.9 [place] [address] [address] May, Anxiety state, unspecified F41.1 [place] [address] [id number] [place] [address] 76152- 5062 May, Depressive disorder, not elsewhere classified F32.9 and Anxiety state, unspecified F41.1 [facility]ALK [facility] [place] [id number] [place] [address]61 [address]23 May, Tachycardia R00.0 and Acute upper respiratory infection, unspecified J06.9 [place] [address] [id number] [place] [address] 46897- 0563 May, Hypothyroidism (acquired) E03.9 ; Morbid obesity due to excess calories E66.01 and Acquired hypothyroidism E03.9 [facility] [address] [address] March, Strep throat J02.0 and Sore throat J02.9 [facility] [id number] [place] [address] 09130- 9554 Feb, Acquired hypothyroidism E03.9 [facility] [id number] [place] [address] 75639- 9197 Feb, Acquired hypothyroidism E03.9 [facility] [id number] [place] [address] 99992- 0055 Feb, Acquired hypothyroidism E03.9 [facility] [id number] [place] [address] 80081- 0675 Jan, Acute bilateral low back pain without sciatica M54.5 [facility] [id number] [place] [address] 15259- 2298 Jan, [facility] [id number] [place] [address] 25510- 4670 Jan, Acquired hypothyroidism E03.9 [facility] [id number] [place] [address] 57331- 2102 Jan, Acquired hypothyroidism E03.9 [facility] [id number] [place] [address] 94243- 2842 Jan, Acquired hypothyroidism E03.9 and Right upper quadrant abdominal pain R10.11 [facility] [address] [address] Nov, Acquired hypothyroidism E03.9 [facility] [id number] [place] [address] 12355 [address]1650 Nov, Acute non-recurrent frontal sinusitis J01.10 [facility] [address] [address] Nov, Viral gastroenteritis A08.4 [facility] [id number] [place] [address] 96743- 4010 Oct, Acquired hypothyroidism E03.9 and RLS (restless legs syndrome) G25.81 [place] [id number] [place] [address] 59855- 2059 Sep, Acquired hypothyroidism E03.9 and RLS (restless legs syndrome) G25.81 [facility] WALK IN [facility] [id number] [place] [address] 97773 -[address] Aug, Acute non-recurrent maxillary sinusitis J01.00 [place] [id number] [place] [address] 28021- 4963 Aug, [place] [id number] [place] [address] 70167- 5289 Aug, [place] [id number] [place] [address] 56577- 8362 Aug, Family history of PCOS Z84.2 and Well woman exam with routine gynecological exam Z01.419 [place] [id number] [place] [address] 66973- 6097 14 Aug, 2016 Family history of PCOS Z84.2 and Well woman exam with routine gynecological exam Z01.419 [place] [id number] [place] [address] 52410- 4936 Jul, [facility]ALK [facility] [place] [id number] [place] [address] 79414 -[address]10 Jun, Viral gastroenteritis A08.4 [facility]ALK [facility] [place] [id number] [place] [address] 6[address]30 [address] Jun, Dysuria R30.0 [place] [id number] [place] [address] 59894- 6803 May, [facility] WALK IN [facility] [id number] [place] [address]286 -3799 Apr, Left otitis media, unspecified chronicity, unspecified otitis media type H66.92 [place] [id number] [place] [address] 19241- 9962 Apr, Cough R05 [place] [address] [address] March, Mild intermittent asthma without complication J45.20 [facility] [address] [address] Feb, Fever R50.9 and Strep throat J02.0 [facility] WALK IN [facility] [address] [address] Feb, Body aches R52 ; Sore throat J02.9 ; Amenorrhea N91.2 and Acute sinusitis J01.90 [place] [address] [address] Feb, Encounter for test Z32.00 [facility] WALK IN [facility] [address] [address] Oct, URI (upper respiratory infection) J06.9 and Cough R05 [place] [address] [address] Oct, Complete miscarriage O03.9 [place] [address] [address]47[address]207 Oct, Complete miscarriage O03.9 [place] [address] [address] Oct, Vaginal bleeding during , antepartum O46.90 [place] [address] [address] Oct, Abnormal ultrasound of ovary R93.5 [place] [address] 15[address] 89[address] Sep, Complete miscarriage O03.9 [place] [id number] [place] [address] 86264- 8[address] Sep, [place] [address] [facility] [id number] [place] [address] Sep, Vaginal bleeding during , antepartum O46.90 IMMUNIZATIONS No Known Immunizations SOCIAL HISTORY Never Assessed REASON FOR VISIT lower abdominal pain that pt describes as stabbing that started 45 minutes ago. last BM was 1 hour ago and pt reports it was diarrhea. denies pain with intercourse. last menstural period was 06/24/2017. denies vomiting but does report some nausea for 3 weeks. [email or web address] PLAN OF CARE Activity Details Follow Up prn Reason: VITAL SIGNS Height 68 in 2017-07-21 Weight 255.2 lbs 2017-07-21 Temperature 97.5 degrees Fahrenheit 2017-07-21 Heart Rate 84 bpm 2017-07-21 Respiratory Rate 20 2017-07-21 BMI 38.80 kg/m2 2017-07-21 Blood pressure systolic 126 mmHg 2017-07-21 Blood pressure diastolic 78 mmHg 2017-07-21 MEDICATIONS Medication Instructions Dosage Frequency Start Date End Date Duration Status Cetirizine HCl 10 mg Orally Once a day 1 tablet 24h 30 Active Proventil HFA 108 (90 Base) MCG/ACT Inhalation 4 times a day 2 puffs as needed 6h March, Active Tramadol HCl 50 mg Orally Once a day 1 tablet as needed 24h Sep, 28 days Active Bactrim DS 800-160 MG Orally 2 times a day 1 tablet 12h Jun,Jul 07 days Active Omeprazole 20 mg Orally Once a day 2 capsules 24h 180 Active Paxil 20 MG Orally Once a day 1 tablet in the morning 24h May, 30 day(s) Active Levothyroxine Sodium 100 MCG Orally Once a day 1 tablet on an empty stomach in the morning 24h 30 Active Contrave 8-90 MG Orally Twice a day 2 tablets 12h Active RESULTS No Results PROCEDURES Procedure Date Ordered Result Body Site URINALYSIS, AUTO, W/O SCOPE Jul 21, 2017 INSTRUCTIONS MEDICATIONS ADMINISTERED No Known Medications MEDICAL (GENERAL) HISTORY Type Description Date Medical History depression Medical History hypothyroid Surgical History breast biopsy--left 06/2015 Surgical History cholecystectomy 03/09/17 Hospitalization History Kidney Infection [facility] 15 yoa
--- OUTSIDE RECORDS SUMMARY | 2018-05-13 20:30 | XMS REPORT ---
Author Author ARMANDO ROBERTSON [facility] Address [address] [place] [address] Care Team Providers Care Polygraph Technician Name Role Phone ARMANDO ROBERTSON Unavailable PROBLEMS Type Condition ICD9-CM Code QMN84-JI Code Onset Dates Condition Status SNOMED Code Problem Cough R05 Active 18771814 Problem URI (upper respiratory infection) J06.9 Active 41380739 Problem Depressive disorder, not elsewhere classified F32.9 Active 33451330 Problem Anxiety state, unspecified F41.1 Active 714061221 Problem RLS (restless legs syndrome) G25.81 Active 47369398 Problem Acquired hypothyroidism E03.9 Active 961074894 Problem Hypothyroidism (acquired) E03.9 Active 335787605 Problem Morbid obesity due to excess calories E66.01 Active 636506731 ALLERGIES Substance Reaction Event Type Date Status Latex Unknown Non Drug Allergy Jan, Active SOCIAL HISTORY Never Assessed PLAN OF CARE VITAL SIGNS Height 68 in 2017-02-16 Weight 261.8 lbs 2017-02-16 Temperature 98.3 degrees Fahrenheit 2017-02-16 Heart Rate 88 bpm 2017-02-16 Respiratory Rate 18 2017-02-16 BMI 39.80 kg/m2 2017-02-16 Blood pressure systolic 116 mmHg 2017-02-16 Blood pressure diastolic 64 mmHg 2017-02-16 MEDICATIONS Medication Instructions Dosage Frequency Start Date End Date Duration Status Vitamins 0.8 MG Orally Once a day 1 tablet 24h Active Proventil HFA 108 (90 Base) MCG/ACT Inhalation 4 times a day 2 puffs as needed 6h March, Active Levothyroxine Sodium 100 MCG Orally Once a day 1 tablet on an empty stomach in the morning 24h Aug, 30 day(s) Active Omeprazole 20 mg Orally Once a day 2 capsules 24h 30 Jul, 2016 30 day(s ) Active Cetirizine HCl 10 mg Orally Once a day 1 tablet 24h 30 Active Tramadol HCl 50 mg Orally Once a day 1 tablet as needed 24h Sep, 28 days Active Zofran ODT 4 MG Orally every 8 hours, PRN 1 tablet on the tongue and allow to dissolve Nov, 03 days Active RESULTS No Results PROCEDURES No Known procedures IMMUNIZATIONS No Known Immunizations MEDICAL (GENERAL) HISTORY Type Description Date Medical History depression Medical History hypothyroid Surgical History breast biopsy--left 06/2015 Surgical History cholecystectomy 03/09/17 Hospitalization History Kidney Infection [facility] 15 yoa
--- OUTSIDE RECORDS SUMMARY | 2018-05-13 20:30 | XMS REPORT ---
Author Author ARMANDO ROBERTSON Organization [facility] Address [address] [place] [address] Care Team Providers Care Duplicating Machine Operator Name Role Phone ARMANDO ROBERTSON Unavailable PROBLEMS Type Condition ICD9-CM Code NII88-GZ Code Onset Dates Condition Status SNOMED Code Problem Depressive disorder, not elsewhere classified F32.9 Active 68538223 Problem Anxiety state, unspecified F41.1 Active 140156676 Problem RLS (restless legs syndrome) G25.81 Active 79830673 Problem Hypothyroidism (acquired) E03.9 Active 276827598 Problem Acquired hypothyroidism E03.9 Active 246053530 ALLERGIES No Information ENCOUNTERS Encounter Location Date Diagnosis [facility] WALK IN [facility] [address] [address] Feb, Sore throat J02.9 and Seasonal allergic rhinitis, unspecified trigger J30.2 [facility] [address] [place] [address]- [address] Jan, Controlled substance agreement signed Z79.899 and Acute non- recurrent maxillary sinusitis J01.00 [facility] WALK IN [facility] [id number] [place] [address]94 [address] Jan, Acute non-recurrent maxillary sinusitis J01.00 and Body aches R52 [facility] IN [facility] [id number] [place] [address] Dec, Viral gastroenteritis A08.[address] [address] Nov, Morbid obesity due to excess calories E66.01 [facility] [id number] [place] [address] 83036- 6514 Nov, Morbid obesity due to excess calories E66.01 [facility] [id number] [place] [address] 48136 -[address]91 Oct, Body aches R52 and Viral illness B34.9 [facility] [address] [place] [id number] [place] [address] 11107 [address]57 Oct, [place] [address] [place] [id number] [place] [address] 37328- 8109 Oct, Morbid obesity due to excess calories E66.01 [place] [address] [place] [id number] [place] [address] 68280- 0913 Aug, Morbid obesity due to excess calories E66.01 [place] [address] [address] Jul, Morbid obesity due to excess calories E66.01 [facility] WALK IN [place] [address] [place] [address] [id number] [place] [address] 12558 -0715 Jun, Abdominal pain R10.9 and Cystitis N30.90 [place] [address] [place] [id number] [place] [address] 49811- 3321 Jun, Morbid obesity due to excess calories E66.01 [facility] [address] [place] [id number] [place] [address] 21133 [address]1849 May, Acute gastroenteritis K52.9 [place] [address] [place] [id number] [place] [address] 20942- 0183 May, Anxiety state, unspecified F41.1 [place] [address] [place] [id number] [place] [address] 91845- 6294 May, Depressive disorder, not elsewhere classified F32.9 and Anxiety state, unspecified F41.1 [facility] [address] [place] [id number] [place] [address] 47728 -0204 May, Tachycardia R00.0 and Acute upper respiratory infection, unspecified J06.9 [place] [address] [place] [id number] [place] [address] 66121- 2622 May, Hypothyroidism (acquired) E03.9 ; Morbid obesity due to excess calories E66.01 and Acquired hypothyroidism E03.9 [facility] [id number] [place] [address] 04163 [address] March, Strep throat J02.0 and Sore throat J02.9 [facility] [id number] [place] [address] 22289- 6476 Feb, Acquired hypothyroidism E03.9 [facility] [id number] [place] [address] 27313- 3206 Feb, Acquired hypothyroidism E03.9 [facility] [address] [address] Feb, Acquired hypothyroidism E03.9 [facility] [id number] [place] [address] 24682- 1096 Jan, Acute bilateral low back pain without sciatica M54.5 [facility] [address] [id number] [place] [address] 79108- 3422 Jan, [facility] [address] [address]- [address] Jan, Acquired hypothyroidism E03.9 [facility] [id number] [place] [address] 49174- 4443 Jan, Acquired hypothyroidism E03.9 [facility] [id number] [place] [address] 15778- 3161 Jan, Acquired hypothyroidism E03.9 and Right upper quadrant abdominal pain R10.11 [facility] [address] [id number] [place] [address] 25729- 0074 Nov, Acquired hypothyroidism E03.9 [facility] [address] [id number] [place] [address] 47915 -7856 Nov, Acute non-recurrent frontal sinusitis J01.10 [facility] [address] [id number] [place] [address] 28529 -4923 Nov, Viral gastroenteritis A08.4 [place] [address] [place] [id number] [place] [address] 65301- 5937 Oct, Acquired hypothyroidism E03.9 and RLS (restless legs syndrome) G25.81 [place] [address] [place] [id number] [place] [address] 10141- 3227 Sep, Acquired hypothyroidism E03.9 and RLS (restless legs syndrome) G25.81 [facility] WALK IN [place] [address] [address] Aug, Acute non-recurrent maxillary sinusitis J01.00 [place] [address] [address] Aug, [place] [address] [address]- 7730 Aug, [place] [address] 45632- 6879 Aug, Family history of PCOS Z84.2 and Well woman exam with routine gynecological exam Z01.419 [place] [address] [address]- [address]16 14 Aug, 2016 Family history of PCOS Z84.2 and Well woman exam with routine gynecological exam Z01.419 [place] [address] [place] [id number] [place] [address] 39944- 4284 Jul, [facility]ALK [facility] [place] [address] [place] [id number] [place] [address] 07073 -6002 Jun, Viral gastroenteritis A08.4 [facility] WALK [facility] [place] [address] 88929 [address]7072 Jun, Dysuria R30.0 [place] [address] 26502- 4781 May, [facility] WALK [facility] [place] [address] 97[address]38 Apr, Left otitis media, unspecified chronicity, unspecified otitis media type H66.92 [place] [address] [place] [id number] [place] [address] 92670- 8003 Apr, Cough R05 [place] [address] [address] 29[address] March, Mild intermittent asthma without complication J45.20 [facility] WALK IN [facility] [address] [address] Feb, Fever R50.9 and Strep throat J02.0 [facility] WALK IN [facility] [address] [address] Feb, Body aches R52 ; Sore throat J02.9 ; Amenorrhea N91.2 and Acute sinusitis J01.90 [place] [address] [address]- 0500 Feb, Encounter for test Z32.00 [facility] WALK IN [facility] [address] 269[address] Oct, URI (upper respiratory infection) J06.9 and Cough R05 [place] [address] 15816- 4870 Oct, Complete miscarriage O03.9 [place] [address] 97708- 4844 Oct, Complete miscarriage O03.9 [place] [address] 6[address]16- 9046 Oct, Vaginal bleeding during , antepartum O46.90 [place] [address] [address]- 4885 Oct, Abnormal ultrasound of ovary R93.5 [place] [address] 598[address]- 9617 Sep, Complete miscarriage O03.9 [place] [address] [place] [address] Sep, [facility] [address] [facility] [id number] [address] Sep, Vaginal bleeding during , antepartum O46.90 IMMUNIZATIONS No Known Immunizations SOCIAL HISTORY Never Assessed REASON FOR VISIT Controlled Med Refill PLAN OF CARE VITAL SIGNS MEDICATIONS Medication Instructions Dosage Frequency Start Date End Date Duration Status Phentermine HCl 15 MG Orally Once a day 1 capsule 24h Jul, 28 days Active RESULTS No Results PROCEDURES No Known procedures INSTRUCTIONS MEDICATIONS ADMINISTERED No Known Medications MEDICAL (GENERAL) HISTORY Type Description Date Medical History depression Medical History hypothyroid Surgical History breast biopsy--left 06/2015 Surgical History cholecystectomy 03/09/17 Hospitalization History Kidney Infection [facility] 15 yoa
--- OUTSIDE RECORDS SUMMARY | 2018-05-13 20:31 | XMS REPORT ---
Author Author ELY Moses [facility] Address [address] [place] [address] Care Team Providers Care Medical Coding Instructor Name Role Phone ELY Moses Unavailable PROBLEMS Type Condition ICD9-CM Code [id number] Code Onset Dates Condition Status SNOMED Code Problem Depressive disorder, not elsewhere classified F32.9 Active 87113308 Problem Anxiety state, unspecified F41.1 Active 324299296 Problem RLS (restless legs syndrome) G25.81 Active 27122366 Problem Hypothyroidism (acquired) E03.9 Active 225032189 Problem Acquired hypothyroidism E03.9 Active 449237986 ALLERGIES Substance Reaction Event Type Date Status Morphine Sulfate vomiting Drug Allergy May, Active Latex Unknown Non Drug Allergy May, Active ENCOUNTERS Encounter Location Date Diagnosis [facility] [address] [address] Jan, Controlled substance agreement signed Z79.899 and Acute non- recurrent maxillary sinusitis J01.00 [facility] [id number] [place] [address]058 [address]682 Jan, Acute non-recurrent maxillary sinusitis J01.00 and Body aches R52 [facility] [id number] [place] [address]228 [address]6346 Dec, Viral gastroenteritis A08.4 [facility] [address] [address] Nov, Morbid obesity due to excess calories E66.01 [facility] [id number] [place] [address] 01212- 7131 Nov, Morbid obesity due to excess calories E66.01 [facility] [address] [address] Oct, Body aches R52 and Viral illness B34.9 [facility] [id number] [place] [address]48 [address]4500 Oct, [place] [id number] [place] [address] 50565- 2547 Oct, Morbid obesity due to excess calories E66.01 [place] [address] 60867[address]18 Aug, Morbid obesity due to excess calories E66.01 [place] [address] 33[address]- 0978 Jul, Morbid obesity due to excess calories E66.01 [facility] [place] [address] 24[address]53 Jun, Abdominal pain R10.9 and Cystitis N30.90 [place] [address] 26[address]- [address]150 Jun, Morbid obesity due to excess calories E66.01 [facility] [place] [id number] [place] [address] 95689 -5576 May, Acute gastroenteritis K52.9 [place] [id number] [place] [address] 58520- 5555 May, Anxiety state, unspecified F41.1 [place] [id number] [place] [address] 98368- 3259 May, Depressive disorder, not elsewhere classified F32.9 and Anxiety state, unspecified F41.1 [facility] [place] [address] 6[address]169 May, Tachycardia R00.0 and Acute upper respiratory infection, unspecified J06.9 [place] [id number] [place] [address] 44462- 1005 May, Hypothyroidism (acquired) E03.9 ; Morbid obesity due to excess calories E66.01 and Acquired hypothyroidism E03.9 [facility] [id number] [place] [address] 95837 -5632 March, Strep throat J02.0 and Sore throat J02.9 [facility] [id number] [place] [address] 09931- 6404 Feb, Acquired hypothyroidism E03.9 [facility] [id number] [place] [address] 96141- 1882 Feb, Acquired hypothyroidism E03.9 [facility] [id number] [place] [address] 83878- 3971 Feb, Acquired hypothyroidism E03.9 [facility] [id number] [place] [address] 62781- 8303 Jan, Acute bilateral low back pain without sciatica M54.5 [facility] [id number] [place] [address] 15573- 2487 Jan, [facility] [id number] [place] [address] 15507- 8141 Jan, Acquired hypothyroidism E03.9 [facility] [id number] [place] [address] 97342- 0566 Jan, Acquired hypothyroidism E03.9 [facility] [id number] [place] [address] 99663- 9967 Jan, Acquired hypothyroidism E03.9 and Right upper quadrant abdominal pain R10.11 [facility] [id number] [place] [address] 26148- 0624 Nov, Acquired hypothyroidism E03.9 [facility] [id number] [place] [address] 63047 -7426 Nov, Acute non-recurrent frontal sinusitis J01.10 [facility] [id number] [address] Nov, Viral gastroenteritis A08.4 [place] [id number] [place] [address] 16921- 1683 Oct, Acquired hypothyroidism E03.9 and RLS (restless legs syndrome) G25.81 [place] [id number] [place] [address] 06244- 9138 Sep, Acquired hypothyroidism E03.9 and RLS (restless legs syndrome) G25.81 [facility] [place] [id number] [place] [address] 46534 -1105 Aug, Acute non-recurrent maxillary sinusitis J01.00 [place] [id number] [place] [address] 12107- 0425 Aug, [place] [id number] [place] [address] 58986- 4843 Aug, [place] [address] 8[address]59- 35[address] 18 Aug, 2016 Family history of PCOS Z84.2 and Well woman exam with routine gynecological exam Z01.419 [place] [id number] [place] [address] 78287- 0387 14 Aug, 2016 Family history of PCOS Z84.2 and Well woman exam with routine gynecological exam Z01.419 [place] [id number] [place] [address] 24475- 2589 Jul, [facility] [place] [id number] [place] [address] 57522 -1733 Jun, Viral gastroenteritis A08.4 [facility] [place] [id number] [place] [address] 13176 -3210 Jun, Dysuria R30.0 [place] [id number] [place] [address] 13795- 7732 May, [facility] [place] [id number] [place] [address] 29849 -0753 Apr, Left otitis media, unspecified chronicity, unspecified otitis media type H66.92 [place] [id number] [place] [address] 88117- 7061 Apr, Cough R05 [place] [address] 39412- 8316 March, Mild intermittent asthma without complication J45.20 [facility] IN [facility] [address] [address]76 [address]2585 Feb, Fever R50.9 and Strep throat J02.0 [facility] [address] 51326 [address] Feb, Body aches R52 ; Sore throat J02.9 ; Amenorrhea N91.2 and Acute sinusitis J01.90 [place] [address] 15610- 4896 Feb, Encounter for test Z32.00 [facility] [place] [address] 8[address]5484 Oct, URI (upper respiratory infection) J06.9 and Cough R05 [place] [address] 17128- 3478 Oct, Complete miscarriage O03.9 [place] [address] 90482- 9080 Oct, Complete miscarriage O03.9 [place] [address] 45183- 3359 Oct, Vaginal bleeding during , antepartum O46.90 [place] [address] 37613- 6248 Oct, Abnormal ultrasound of ovary R93.5 [place] [address] [address]70- 1964 Sep, Complete miscarriage O03.9 [place] [address] 74560- 0294 Sep, [facility] [address] [facility] [id number] [place] [address] Sep, Vaginal bleeding during , antepartum O46.90 IMMUNIZATIONS No Known Immunizations SOCIAL HISTORY Never Assessed REASON FOR VISIT vomitting/diarrhea x 2 days. NASRIN Mohr. PLAN OF CARE Activity Details Follow Up prn Reason: VITAL SIGNS Height 68 in 2017-06-22 Weight 249.8 lbs 2017-06-22 Temperature 97.5 degrees Fahrenheit 2017-06-22 Heart Rate 92 bpm 2017-06-22 Respiratory Rate 18 2017-06-22 BMI 37.98 kg/m2 2017-06-22 Blood pressure systolic 122 mmHg 2017-06-22 Blood pressure diastolic 82 mmHg 2017-06-22 MEDICATIONS Medication Instructions Dosage Frequency Start Date End Date Duration Status Contrave 8-90 MG Orally Twice a day 2 tablets 12h May, Jun, 30 day(s) Active Omeprazole 20 mg Orally Once a day 2 capsules 24h 180 Active Proventil HFA 108 (90 Base) MCG/ACT Inhalation 4 times a day 2 puffs as needed 6h March, Active Tramadol HCl 50 mg Orally Once a day 1 tablet as needed 24h 21 Sep, 2016 28 days Active Paxil 20 MG Orally Once a day 1 tablet in the morning 24h May, 30 day(s) Active Cetirizine HCl 10 mg Orally Once a day 1 tablet 24h 30 Active Levothyroxine Sodium 100 MCG Orally Once a day 1 tablet on an empty stomach in the morning 24h 20 Aug, 2016 30 day(s) Active RESULTS No Results PROCEDURES No Known procedures INSTRUCTIONS MEDICATIONS ADMINISTERED No Known Medications MEDICAL (GENERAL) HISTORY Type Description Date Medical History depression Medical History hypothyroid Surgical History breast biopsy--left 06/2015 Surgical History cholecystectomy 03/09/17 Hospitalization History Kidney Infection [facility] 13 yoa
--- OUTSIDE RECORDS SUMMARY | 2018-05-13 20:31 | XMS REPORT ---
Author Author ELY ROMANO Organization [facility] Address [address] [place] [address] Care Team Providers Care Veterinary Hospital Attendant Name Role Phone HAI ROMANOICE Unavailable PROBLEMS Type Condition ICD9-CM Code [id number] Code Onset Dates Condition Status SNOMED Code Problem Cough R05 Active 40127065 Problem URI (upper respiratory infection) J06.9 Active 33925104 Problem Depressive disorder, not elsewhere classified F32.9 Active 29018733 Problem Anxiety state, unspecified F41.1 Active 477425450 Problem RLS (restless legs syndrome) G25.81 Active 48732879 Problem Acquired hypothyroidism E03.9 Active 061460893 Problem Hypothyroidism (acquired) E03.9 Active 748490479 Problem Morbid obesity due to excess calories E66.01 Active 439348716 ALLERGIES Substance Reaction Event Type Date Status Morphine Sulfate vomiting Drug Allergy March, Active Latex Unknown Non Drug Allergy March, Active SOCIAL HISTORY Never Assessed PLAN OF CARE Activity Details Follow Up prn Reason: VITAL SIGNS Height 68 in 2017-04-18 Weight 257.8 lbs 2017-04-18 Temperature 98.4 degrees Fahrenheit 2017-04-18 Heart Rate 86 bpm 2017-04-18 Respiratory Rate 20 2017-04-18 BMI 39.19 kg/m2 2017-04-18 Blood pressure systolic 126 mmHg 2017-04-18 Blood pressure diastolic 78 mmHg 2017-04-18 MEDICATIONS Medication Instructions Dosage Frequency Start Date End Date Duration Status Cetirizine HCl 10 mg Orally Once a day 1 tablet 24h 30 Active Levothyroxine Sodium 100 MCG Orally Once a day 1 tablet on an empty stomach in the morning 24h Aug, 30 day(s) Active Amoxicillin 500 MG Orally every 12 hrs 1 capsule 12h March, Apr, 10 day(s) Active RESULTS Name Result Date Reference Range STREP A (IN HOUSE) 2017-05-25 STREP A positive Control + Lot # [id number] Exp date dec 15 PROCEDURES Procedure Date Ordered Result Body Site STREP A ASSAY W/OPTIC April 18, 2017 IMMUNIZATIONS No Known Immunizations MEDICAL (GENERAL) HISTORY Type Description Date Medical History depression Medical History hypothyroid Surgical History breast biopsy--left 06/2015 Surgical History cholecystectomy 03/09/17 Hospitalization History Kidney Infection [facility] 13 yoa
--- OUTSIDE RECORDS SUMMARY | 2018-05-13 20:31 | XMS REPORT ---
Author Author ARMANDO ROBERTSON Organization [facility] Address [address] [place] [address] Care Team Providers Care Filenet P8 Developer Name Role Phone MARCELO ARMANDO Unavailable PROBLEMS Type Condition ICD9-CM Code XRM78-GN Code Onset Dates Condition Status SNOMED Code Problem Depressive disorder, not elsewhere classified F32.9 Active 19728445 Problem Anxiety state, unspecified F41.1 Active 178485267 Problem RLS (restless legs syndrome) G25.81 Active 05835426 Problem Hypothyroidism (acquired) E03.9 Active 131555749 Problem Acquired hypothyroidism E03.9 Active 837909683 ALLERGIES Substance Reaction Event Type Date Status Morphine Sulfate vomiting Drug Allergy Jul, Active Latex Unknown Non Drug Allergy Jul, Active ENCOUNTERS Encounter Location Date Diagnosis [facility] [address] [address] Feb, Sore throat J02.9 and Seasonal allergic rhinitis, unspecified trigger J30.2 [facility] [address] [address] Jan, Controlled substance agreement signed Z79.899 and Acute non- recurrent maxillary sinusitis J01.00 [facility] [address] [place] [id number] [place] [address] 78988 -8117 Jan, Acute non-recurrent maxillary sinusitis J01.00 and Body aches R52 [facility] [address] [address] Dec, Viral gastroenteritis A08.4 [facility] [address] [address]- [address]36 Nov, Morbid obesity due to excess calories E66.01 [facility] [address] 79951- [address]662 Nov, Morbid obesity due to excess calories E66.01 [facility] [address] [place] [id number] [place] [address] 19677 -0437 Oct, Body aches R52 and Viral illness B34.9 [facility] [place] [address] [address] [id number] [place] [address] 91963 -7391 Oct, [place] [address] 85779- [address]287 Oct, Morbid obesity due to excess calories E66.01 [place] [address] [address]33- 8974 Aug, Morbid obesity due to excess calories E66.01 [place] [address] [place] [id number] [place] [address] 54204- 5515 Jul, Morbid obesity due to excess calories E66.01 [facility] [place] [address] 73267 -7387 Jun, Abdominal pain R10.9 and Cystitis N30.90 [place] [address] [place] [id number] [place] [address] 56836- 9994 Jun, Morbid obesity due to excess calories E66.01 [facility] [address] [place] [id number] [place] [address] 62817 -4483 May, Acute gastroenteritis K52.9 [place] [address] 89719- 4387 May, Anxiety state, unspecified F41.1 [place] [address] [place] [id number] [place] [address] 67524- 7931 May, Depressive disorder, not elsewhere classified F32.9 and Anxiety state, unspecified F41.1 [facility] [address] [place] [id number] [place] [address] 57445 -6499 May, Tachycardia R00.0 and Acute upper respiratory infection, unspecified J06.9 [place] [address], [place] [address] May, Hypothyroidism (acquired) E03.9 ; Morbid obesity due to excess calories E66.01 and Acquired hypothyroidism E03.9 [facility] [address] [id number] [place] [address] 93555 -8818 March, Strep throat J02.0 and Sore throat J02.9 [facility] [address] [id number] [place] [address] 14336- 2119 Feb, Acquired hypothyroidism E03.9 [facility] [address] [id number] [place] [address] 03680- 1409 Feb, Acquired hypothyroidism E03.9 [facility] [address] [id number] [place] [address] 49515- 0580 Feb, Acquired hypothyroidism E03.9 [facility] [address] [id number] [place] [address] 55598- 0577 Jan, Acute bilateral low back pain without sciatica M54.5 [facility] [address] [id number] [place] [address] 77676- 2331 Jan, [facility] [id number] [place] [address] 51191- 4295 Jan, Acquired hypothyroidism E03.9 [facility] [id number] [place] [address] 24592- 0307 Jan, Acquired hypothyroidism E03.9 [facility] [id number] [place] [address] 49364- 2392 Jan, Acquired hypothyroidism E03.9 and Right upper quadrant abdominal pain R10.11 [facility] [address] [id number] [place] [address] 86535- 7213 Nov, Acquired hypothyroidism E03.9 [facility] [address] [place] [address] 09048 -8367 Nov, Acute non-recurrent frontal sinusitis J01.10 [facility] [address] [id number] [place] [address] 99896 -1436 Nov, Viral gastroenteritis A08.4 [facility] [address] [address] [id number] [place] [address] 80234- 5849 Oct, Acquired hypothyroidism E03.9 and RLS (restless legs syndrome) G25.81 [place] [address] 29217- 2298 Sep, Acquired hypothyroidism E03.9 and RLS (restless legs syndrome) G25.81 [facility] [place] [address] [place] [id number] [place] [address] 15997 -9521 Aug, Acute non-recurrent maxillary sinusitis J01.00 [place] [address] [place] [id number] [place] [address] 12185- 4771 Aug, [place] [address] 25039- 8502 Aug, [facility] [address] [place] [id number] [place] [address] 32581- 9184 18 Aug, 2016 Family history of PCOS Z84.2 and Well woman exam with routine gynecological exam Z01.419 [place] [address] [place] [id number] [place] [address] 53891- 6569 14 Aug, 2016 Family history of PCOS Z84.2 and Well woman exam with routine gynecological exam Z01.419 [facility] [address] [place] [id number] [place] [address] 31404- 7294 Jul, [facility] [address] [place] [address] [id number] [place] [address] 58823 -0104 Jun, Viral gastroenteritis A08.4 [facility] [address] [place] [id number] [place] [address] 53355 -3995 Jun, Dysuria R30.0 [facility] [address] [place] [id number] [place] [address] 17572- 6532 May, [facility] [address] [id number] [place] [address] 71067 -5203 Apr, Left otitis media, unspecified chronicity, unspecified otitis media type H66.92 [place] [address] 32047- 9053 Apr, Cough R[address] [address]- [address]209 March, Mild intermittent asthma without complication J45.20 [facility] [address] [place] [address] 78772 -1072 Feb, Fever R50.9 and Strep throat J02.0 [facility] WALK IN [address] [address] Feb, Body aches R52 ; Sore throat J02.9 ; Amenorrhea N91.2 and Acute sinusitis J01.[address] [address]- 7132 Feb, Encounter for test Z32.00 [facility] W[facility] IN [address] [address] Oct, URI (upper respiratory infection) J06.9 and Cough R05 [place] [address] 98916- 5868 Oct, Complete miscarriage O03.9 [place] [address] 78729- 0763 Oct, Complete miscarriage O03.9 [place] [address] 28825- 7452 Oct, Vaginal bleeding during , antepartum O46.90 [place] [address] 28412- 0153 Oct, Abnormal ultrasound of ovary R93.[address] 8[address]24- 8601 Sep, Complete miscarriage O03.9 [facility] [address] [facility] [id number] [place] [address] Sep, [facility] [address] [facility]ED [facility] [id number] [place] [address] 3[address] Sep, Vaginal bleeding during , antepartum O46.90 IMMUNIZATIONS No Known Immunizations SOCIAL HISTORY Never Assessed REASON FOR VISIT Obesity f/u, ear pain--Karen Long MA PLAN OF CARE VITAL SIGNS Height 68 in 2017-08-17 Weight 257.9 lbs 2017-08-17 Temperature 98.4 degrees Fahrenheit 2017-08-17 Heart Rate 76 bpm 2017-08-17 Respiratory Rate 20 2017-08-17 BMI 39.21 kg/m2 2017-08-17 Blood pressure systolic 128 mmHg 2017-08-17 Blood pressure diastolic 78 mmHg 2017-08-17 MEDICATIONS Medication Instructions Dosage Frequency Start Date End Date Duration Status Cetirizine HCl 10 mg Orally Once a day 1 tablet 24h 30 Active Omeprazole 20 mg Orally Once a day 2 capsules 24h 180 Active Phentermine HCl 15 mg Orally Once a day 1 capsule 24h Jul, Active Proventil HFA 108 (90 Base) MCG/ACT Inhalation 4 times a day 2 puffs as needed 6h March, Active Paxil 20 MG Orally Once a day 1 tablet in the morning 24h May, 30 day(s) Active Tramadol HCl 50 mg Orally Once a day 1 tablet as needed 24h Sep, Aug, 28 days Active Levothyroxine Sodium 100 MCG Orally Once a day 1 tablet on an empty stomach in the morning 24h 30 Active RESULTS No Results PROCEDURES No Known procedures INSTRUCTIONS MEDICATIONS ADMINISTERED No Known Medications MEDICAL (GENERAL) HISTORY Type Description Date Medical History depression Medical History hypothyroid Surgical History breast biopsy--left 06/2015 Surgical History cholecystectomy 03/09/17 Hospitalization History Kidney Infection [facility] 13 yoa
--- OUTSIDE RECORDS SUMMARY | 2018-05-13 20:32 | XMS REPORT ---
Author Author ARMANDO ROBERTSON Organization [facility] [place] Address [address] [place] [address] Care Team Providers Care Seal Skinner Name Role Phone ARMANDO ROBERTSON Unavailable PROBLEMS Type Condition ICD9-CM Code DAA99-DT Code Onset Dates Condition Status SNOMED Code Problem Depressive disorder, not elsewhere classified F32.9 Active 75678419 Problem Anxiety state, unspecified F41.1 Active 090524112 Problem RLS (restless legs syndrome) G25.81 Active 50530849 Problem Hypothyroidism (acquired) E03.9 Active 240596790 Problem Acquired hypothyroidism E03.9 Active 292117301 ALLERGIES Substance Reaction Event Type Date Status Morphine Sulfate vomiting Drug Allergy May, Active Latex Unknown Non Drug Allergy May, Active ENCOUNTERS Encounter Location Date Diagnosis [facility] [place] [address] [address] Jan, [facility] [address] [address] Jan, Acute non-recurrent maxillary sinusitis J01.00 and Body aches R52 [facility] [address] [address] Dec, Viral gastroenteritis A08.4 [facility] [place] [address] [address] Nov, Morbid obesity due to excess calories E66.01 [facility] [place] [address] [address] Nov, Morbid obesity due to excess calories E66.01 [facility] [address] [address] Oct, Body aches R52 and Viral illness B34.9 [facility] [address] [address] Oct, [place] [address] [place] [id number] [place] [address] Oct, Morbid obesity due to excess calories E66.01 [place] [address] [place] [id number] [place] [address] 8[address] Aug, Morbid obesity due to excess calories E66.01 [place] [address] [place] [id number] [place] [address] Jul, Morbid obesity due to excess calories E66.01 [facility] [place] [address] [place] [id number] [place] [address] Jun, Abdominal pain R10.9 and Cystitis N30.90 [place] [address] [place] [id number] [place] [address] Jun, Morbid obesity due to excess calories E66.01 [facility] [place] [address] [id number] [place] [address] May, Acute gastroenteritis K52.9 [place] [address] [place] [id number] [place] [address] May, Anxiety state, unspecified F41.1 [place] [address] [place] [id number] [place] [address] May, Depressive disorder, not elsewhere classified F32.9 and Anxiety state, unspecified F41.1 [facility] [place] [address] [place] [id number] [place] [address] May, Tachycardia R00.0 and Acute upper respiratory infection, unspecified J06.9 [place] [address] [place] [id number] [place] [address]64[address] 4[address] May, Hypothyroidism (acquired) E03.9 ; Morbid obesity due to excess calories E66.01 and Acquired hypothyroidism E03.9 [facility] [place] [address] [place] [id number] [place] [address] March, Strep throat J02.0 and Sore throat J02.9 [facility] [place] [address] [place] [id number] [place] [address]68[address] Feb, Acquired hypothyroidism E03.9 [facility] [place] [address] [place] [id number] [place] [address] 15807[address] 8[address] Feb, Acquired hypothyroidism E03.9 [facility] [place] [address] [place] [id number] [place] [address]85[address] 79[address] Feb, Acquired hypothyroidism E03.9 [facility] [place] [address] [place] [id number] [place] [address]68- 9[address] Jan, Acute bilateral low back pain without sciatica M54.5 [facility] [place] [address] [place] [id number] [place] [address]45[address] Jan, [facility] [place] [address] [place] [id number] [place] [address] Jan, Acquired hypothyroidism E03.9 [facility] [place] [address] [id number] [place] [address]08[address] 8[address] Jan, Acquired hypothyroidism E03.9 [facility] [place] [address] [place] [id number] [place] [address]55[address] Jan, Acquired hypothyroidism E03.9 and Right upper quadrant abdominal pain R10.11 [facility] [place] [address] [place] [id number] [place] [address]39[address] 379[address] Nov, Acquired hypothyroidism E03.9 [facility] [address] [place] [id number] [place] [address]67 [address] Nov, Acute non-recurrent frontal sinusitis J01.10 [facility] [address] [place] [id number] [place] [address] Nov, Viral gastroenteritis A08.4 [facility] [place] [address] [place] [id number] [place] [address] 7[address]33[address] Oct, Acquired hypothyroidism E03.9 and RLS (restless legs syndrome) G25.81 [facility] [place] [address] [place] [id number] [place] [address] Sep, Acquired hypothyroidism E03.9 and RLS (restless legs syndrome) G25.81 [facility] [address] [place] [id number] [place] [address] Aug, Acute non-recurrent maxillary sinusitis J01.00 [place] [address] [address] Aug, [place] [address] [address] Aug, [place] [address] [address] Aug, Family history of PCOS Z84.2 and Well woman exam with routine gynecological exam Z01.419 [place] [address] [address] Aug, Family history of PCOS Z84.2 and Well woman exam with routine gynecological exam Z01.419 [place] [address] [address] Jul, [facility] [address] [place] [id number] [place] [address]47 [address] Jun, Viral gastroenteritis A08.4 [facility] [address] [address] Jun, Dysuria R30.0 [place] [address] [place] [id number] [place] [address] 54598[address] 4117 May, [facility] [address] [address] Apr, Left otitis media, unspecified chronicity, unspecified otitis media type H66.92 [place] [address] [address] Apr, Cough R05 [place] [address] [place] [id number] [place] [address] March, Mild intermittent asthma without complication J45.20 [facility] [address] [address] Feb, Fever R50.9 and Strep throat J02.0 [facility] [address] [address] Feb, Body aches R52 ; Sore throat J02.9 ; Amenorrhea N91.2 and Acute sinusitis J01.90 [place] [address] [address] Feb, Encounter for test Z32.00 [facility] [address] [address] Oct, URI (upper respiratory infection) J06.9 and Cough R05 [place] [address] [address] Oct, Complete miscarriage O03.9 [place] [address] [address] Oct, Complete miscarriage O03.9 [place] [address] [address] Oct, Vaginal bleeding during , antepartum O46.90 [place] [address] [address] Oct, Abnormal ultrasound of ovary R93.5 [place] [address] [address] Sep, Complete miscarriage O03.9 [place] [address] [address] Sep, [place] [address] [address] Sep, Vaginal bleeding during , antepartum O46.90 IMMUNIZATIONS No Known Immunizations SOCIAL HISTORY Never Assessed REASON FOR VISIT Thyroid- Samira Cobos RN PLAN OF CARE VITAL SIGNS Height 68 in 2017-06-01 Weight 259 lbs 2017-06-01 Temperature 97.8 degrees Fahrenheit 2017-06-01 Heart Rate 86 bpm 2017-06-01 Respiratory Rate 18 2017-06-01 BMI 39.38 kg/m2 2017-06-01 Blood pressure systolic 122 mmHg 2017-06-01 Blood pressure diastolic 86 mmHg 2017-06-01 MEDICATIONS Medication Instructions Dosage Frequency Start Date End Date Duration Status Proventil HFA 108 (90 Base) MCG/ACT Inhalation 4 times a day 2 puffs as needed 6h March, Active Omeprazole 20 mg Orally Once a day 2 capsules 24h 90 Active Tramadol HCl 50 mg Orally Once a day 1 tablet as needed 24h Sep, 28 days Active Contrave 8-90 MG Orally Twice a day 2 tablets 12h May, Jun, 30 day(s) Active Levothyroxine Sodium 100 MCG Orally Once a day 1 tablet on an empty stomach in the morning 24h Aug, 30 day(s) Active Cetirizine HCl 10 mg Orally Once a day 1 tablet 24h 30 Active RESULTS Name Result Date Reference Range TSH 2017-06-01 TSH 2.280 0.450-4.500 PROCEDURES Procedure Date Ordered Result Body Site LAB NOT BILLED BY [facility] June 01, 2017 VENIPUNCT, ROUTINE* June 01, 2017 INSTRUCTIONS MEDICATIONS ADMINISTERED No Known Medications MEDICAL (GENERAL) HISTORY Type Description Date Medical History depression Medical History hypothyroid Surgical History breast biopsy--left 06/2015 Surgical History cholecystectomy 03/09/17 Hospitalization History Kidney Infection [facility] 13 yoa
--- OUTSIDE RECORDS SUMMARY | 2018-05-13 20:32 | XMS REPORT ---
Author Author TWIN GOMES [facility] Address [address] [place] [address] Care Team Providers Care Hacksaw Inspector Name Role Phone TWIN GOMES Unavailable PROBLEMS Type Condition ICD9-CM Code HKZ12-TI Code Onset Dates Condition Status SNOMED Code Problem Depressive disorder, not elsewhere classified F32.9 Active 51133329 Problem Anxiety state, unspecified F41.1 Active 239294729 Problem RLS (restless legs syndrome) G25.81 Active 01781314 Problem Hypothyroidism (acquired) E03.9 Active 459339509 Problem Acquired hypothyroidism E03.9 Active 291973019 ALLERGIES No Information ENCOUNTERS Encounter Location Date Diagnosis [facility] [address] [address] Feb, Sore throat J02.9 and Seasonal allergic rhinitis, unspecified trigger J30.2 [place] [address] [address] Jan, Controlled substance agreement signed Z79.899 and Acute non- recurrent maxillary sinusitis J01.00 [facility] [address] [address] Jan, Acute non-recurrent maxillary sinusitis J01.00 and Body aches R52 [facility] [address] [address] Dec, Viral gastroenteritis A08.4 [place] [address] [address] Nov, Morbid obesity due to excess calories E66.01 [place] [address] [address] Nov, Morbid obesity due to excess calories E66.01 [facility] [address] [place] [id number] [address] Oct, Body aches R52 and Viral illness B34.9 [facility] [place] [address] [place] [address] [id number] [place] [address] Oct, [place] [address] [place] [id number] [place] [address]180[address] Oct, Morbid obesity due to excess calories E66.01 [place] [address] [place] [id number] [place] [address]265- [address]77 Aug, Morbid obesity due to excess calories E66.01 [place] [address] [place] [id number] [place] [address] 25835- 4584 Jul, Morbid obesity due to excess calories E66.01 [facility] [place] [address] [place] [address] [id number] [place] [address] Jun, Abdominal pain R10.9 and Cystitis N30.90 [place] [address] [place] [id number] [place] [address]24[address] Jun, Morbid obesity due to excess calories E66.01 [facility] [place] [address] [place] [address] [id number] [place] [address] May, Acute gastroenteritis K52.9 [place] [address] [place] [id number] [place] [address] 34583- 5794 May, Anxiety state, unspecified F41.1 [place] [address] [place] [id number] [place] [address] 08159[address] 3732 May, Depressive disorder, not elsewhere classified F32.9 and Anxiety state, unspecified F41.1 [facility] [address] [place] [id number] [place] [address] May, Tachycardia R00.0 and Acute upper respiratory infection, unspecified J06.9 [place] [address] [place] [address] May, Hypothyroidism (acquired) E03.9 ; Acquired hypothyroidism E03.9 and Morbid obesity due to excess calories E66.01 [facility] [address] [place] [id number] [place] [address] March, Strep throat J02.[address]9 [facility] [address] [place] [id number] [place] [address] 56112- 2441 Feb, Acquired hypothyroidism E03.9 [facility] [address] [address] Feb, Acquired hypothyroidism E03.9 [facility] [address] [place] [id number] [place] [address] 94116- 7489 Feb, Acquired hypothyroidism E03.9 [facility] [address] [place] [id number] [place] [address] 61656- 4517 Jan, Acute bilateral low back pain without sciatica M54.5 [facility] [address] [place] [id number] [place] [address] 69068- [address]90 Jan, [facility] [address] [place] [id number] [place] [address] 27211- 8306 Jan, Acquired hypothyroidism E03.9 [facility] [address] [place] [address] [id number] [place] [address] 56948- 4996 Jan, Acquired hypothyroidism E03.9 [facility] [address] [place] [id number] [place] [address] 92767- 3556 Jan, Acquired hypothyroidism E03.9 and Right upper quadrant abdominal pain R10.11 [facility] [address] [place] [id number] [place] [address] 81719- 1690 Nov, Acquired hypothyroidism E03.9 [facility] [address] [place] [id number] [place] [address] Nov, Acute non-recurrent frontal sinusitis J01.10 [facility] [address] [place] [address] Nov, Viral gastroenteritis A08.4 [facility] [address] [address] Oct, Acquired hypothyroidism E03.9 and RLS (restless legs syndrome) G25.81 [facility] [address] [address] Sep, Acquired hypothyroidism E03.9 and RLS (restless legs syndrome) G25.81 [facility] [address] [address] Aug, Acute non-recurrent maxillary sinusitis J01.00 [place] [address] [address] Aug, [place] [address] [address] Aug, [facility] [address] [address] Aug, Family history of PCOS Z84.2 and Well woman exam with routine gynecological exam Z01.419 [place] [address] [address] 14 Aug, 2016 Family history of PCOS Z84.2 and Well woman exam with routine gynecological exam Z01.419 [place] [address] 07[address]151 Jul, [facility] [address] [address] Jun, Viral gastroenteritis A08.4 [facility] [address] [address] Jun, Dysuria R30.0 [facility] [address] [address] May, [facility] [address] [address] Apr, Left otitis media, unspecified chronicity, unspecified otitis media type H66.92 [place] [address] [place] [id number] [place] [address] 30570- 1707 Apr, Cough R05 [place] [address] [place] [id number] [place] [address] 37105- [address]201 March, Mild intermittent asthma without complication J45.20 [facility] [address] [place] [id number] [place] [address] Feb, Fever R50.9 and Strep throat J02.0 [facility] [place] [address] [address] Feb, Body aches R52 ; Sore throat J02.9 ; Amenorrhea N91.2 and Acute sinusitis J01.90 [place] [address] [address] Feb, Encounter for test Z32.00 [facility] [address] [place] [id number] [place] [address] Oct, URI (upper respiratory infection) J06.9 and Cough R05 [place] [address] [place] [id number] [place] [address] 37207- 0100 Oct, Complete miscarriage O03.9 [place] [address] [place] [id number] [place] [address] 86622- 8966 Oct, Complete miscarriage O03.9 [place] [address] [place] [id number] [place] [address] 82304- 2571 Oct, Vaginal bleeding during , antepartum O46.90 [place] [address] [place] [id number] [place] [address] 48849- 4996 Oct, Abnormal ultrasound of ovary R93.5 [place] [address] [place] [id number] [place] [address] 77601- 1827 Sep, Complete miscarriage O03.9 [place] [address] [facility] [id number] [place] [address] Sep, [facility] [address] [facility] [id number] [address] Sep, Vaginal bleeding during , antepartum O46.90 IMMUNIZATIONS No Known Immunizations SOCIAL HISTORY Never Assessed REASON FOR VISIT Rx sent PLAN OF CARE VITAL SIGNS MEDICATIONS Medication Instructions Dosage Frequency Start Date End Date Duration Status Amoxicillin 875 MG Orally every 12 hrs 1 tablet 12h Oct, Oct, 10 day(s) Active RESULTS No Results PROCEDURES No Known procedures INSTRUCTIONS MEDICATIONS ADMINISTERED No Known Medications MEDICAL (GENERAL) HISTORY Type Description Date Medical History depression Medical History hypothyroid Surgical History breast biopsy--left 06/2015 Surgical History cholecystectomy 03/09/17 Hospitalization History Kidney Infection [facility] 15 yoa
--- OUTSIDE RECORDS SUMMARY | 2018-05-13 20:32 | XMS REPORT ---
Author Author ARMANDO ROBERTSON [facility] Address [address] [place] [address] Care Team Providers Care Armhole Presser Name Role Phone ARMANDO ROBERTSON Unavailable PROBLEMS Type Condition ICD9-CM Code SKT53-UT Code Onset Dates Condition Status SNOMED Code Problem Cough R05 Active 89383743 Problem URI (upper respiratory infection) J06.9 Active 78891276 Problem Depressive disorder, not elsewhere classified F32.9 Active 74554933 Problem Anxiety state, unspecified F41.1 Active 611896897 Problem RLS (restless legs syndrome) G25.81 Active 40238404 Problem Acquired hypothyroidism E03.9 Active 712076419 Problem Hypothyroidism (acquired) E03.9 Active 463063187 Problem Morbid obesity due to excess calories E66.01 Active 474131178 ALLERGIES No Information SOCIAL HISTORY Never Assessed PLAN OF CARE VITAL SIGNS MEDICATIONS Medication Instructions Dosage Frequency Start Date End Date Duration Status Levothyroxine Sodium 100 MCG Orally Once a day 1 tablet on an empty stomach in the morning 24h Aug, 30 day(s) Active RESULTS No Results PROCEDURES No Known procedures IMMUNIZATIONS No Known Immunizations MEDICAL (GENERAL) HISTORY Type Description Date Medical History depression Medical History hypothyroid Surgical History breast biopsy--left 06/2015 Surgical History cholecystectomy 03/09/17 Hospitalization History Kidney Infection [facility] 15 yoa
--- OUTSIDE RECORDS SUMMARY | 2018-05-13 20:32 | XMS REPORT ---
Author Author ARMANDO ROBERTSON [facility] Address [address] [place] [address] Care Team Providers Care Computer Operations Technician Name Role Phone ARMANDO ROBERTSON Unavailable PROBLEMS Type Condition ICD9-CM Code QSY17-BH Code Onset Dates Condition Status SNOMED Code Problem Cough R05 Active 08538126 Problem URI (upper respiratory infection) J06.9 Active 53932452 Problem Depressive disorder, not elsewhere classified F32.9 Active 43788773 Problem Anxiety state, unspecified F41.1 Active 038547729 Problem RLS (restless legs syndrome) G25.81 Active 86270410 Problem Acquired hypothyroidism E03.9 Active 085318899 Problem Hypothyroidism (acquired) E03.9 Active 837918061 Problem Morbid obesity due to excess calories E66.01 Active 822375735 ALLERGIES Unknown Allergies SOCIAL HISTORY No smoking Hx information available PLAN OF CARE VITAL SIGNS MEDICATIONS Medication Instructions Dosage Frequency Start Date End Date Duration Status Tramadol HCl 50 mg Orally Once a day 1 tablet as needed 24h Sep, 28 days Active RESULTS No Results PROCEDURES No Known procedures IMMUNIZATIONS No Known Immunizations
--- OUTSIDE RECORDS SUMMARY | 2018-05-13 20:32 | XMS REPORT ---
Author Author ARMANDO ROBERTSON [facility] Address [address] [place] [address] Care Team Providers Care Personalized Living Assistant Name Role Phone ARMANDO ROBERTSON Unavailable PROBLEMS Type Condition ICD9-CM Code BSH24-QA Code Onset Dates Condition Status SNOMED Code Problem Cough R05 Active 25707556 Problem URI (upper respiratory infection) J06.9 Active 10909752 Problem Depressive disorder, not elsewhere classified F32.9 Active 94061579 Problem Anxiety state, unspecified F41.1 Active 235900546 Problem RLS (restless legs syndrome) G25.81 Active 74658753 Problem Acquired hypothyroidism E03.9 Active 278242774 Problem Hypothyroidism (acquired) E03.9 Active 405192185 Problem Morbid obesity due to excess calories E66.01 Active 178654330 ALLERGIES Substance Reaction Event Type Date Status Latex Unknown Non Drug Allergy Jan, Active SOCIAL HISTORY Never Assessed PLAN OF CARE VITAL SIGNS Height 68 in 2017-02-09 Weight 260.3 lbs 2017-02-09 Temperature 98.2 degrees Fahrenheit 2017-02-09 Heart Rate 84 bpm 2017-02-09 Respiratory Rate 20 2017-02-09 BMI 39.57 kg/m2 2017-02-09 Blood pressure systolic 104 mmHg 2017-02-09 Blood pressure diastolic 68 mmHg 2017-02-09 MEDICATIONS Medication Instructions Dosage Frequency Start Date End Date Duration Status Levothyroxine Sodium 75 mcg Orally Once a day 1 tablet on an empty stomach in the morning 24h Aug, 30 day(s) Active Omeprazole 20 mg Orally Once a day 2 capsules 24h 30 Jul, 2016 30 day(s ) Active Tramadol HCl 50 mg Orally Once a day 1 tablet as needed 24h Sep, 28 days Active Cetirizine HCl 10 mg Orally Once a day 1 tablet 24h 30 Active Vitamins 0.8 MG Orally Once a day 1 tablet 24h Active RESULTS Name Result Date Reference Range TSH 2017-02-09 TSH 6.980 0.450-4.500 HIDA Scan 2017-02-20 PROCEDURES Procedure Date Ordered Result Body Site ASSAY THYROID STIM HORMONE February 09, 2017 VENIPUNCT, ROUTINE* February 09, 2017 IMMUNIZATIONS No Known Immunizations MEDICAL (GENERAL) HISTORY Type Description Date Medical History depression Medical History hypothyroid Surgical History breast biopsy--left 06/2015 Surgical History cholecystectomy 03/09/17 Hospitalization History Kidney Infection [facility] 15 yoa
--- OUTSIDE RECORDS SUMMARY | 2018-05-13 20:32 | XMS REPORT ---
Author Author ARMANDO ROBERTSON [facility] Address [address] [place] [address] Care Team Providers Care Image Archivist Name Role Phone ARMANDO ROBERTSON Unavailable PROBLEMS Type Condition ICD9-CM Code OQR57-ZV Code Onset Dates Condition Status SNOMED Code Problem Cough R05 Active 24737458 Problem URI (upper respiratory infection) J06.9 Active 33825542 Problem Depressive disorder, not elsewhere classified F32.9 Active 46115561 Problem Anxiety state, unspecified F41.1 Active 983829932 Problem RLS (restless legs syndrome) G25.81 Active 51123212 Problem Acquired hypothyroidism E03.9 Active 457974377 Problem Hypothyroidism (acquired) E03.9 Active 438480562 Problem Morbid obesity due to excess calories E66.01 Active 368382168 ALLERGIES No Information SOCIAL HISTORY Never Assessed [...]
--- OUTSIDE RECORDS SUMMARY | 2018-05-13 20:33 | XMS REPORT | Continuity of Care Document ---
Author Author [facility] Organization [facility] Address Unknown Phone Unavailable Allergies Active Description Code Type Severity Reaction Onset Reported/Identified Relationship to Patient Clinical Status Yes LATEX, NATURAL RUBBER LATEX , NATURAL RUBBE UNKNOWN Yes LATEX, NATURAL RUBBER UNKNOWN UNKNOWN Yes MORPHINE UNKNOWN UNKNOWN Yes latex [id number] Drug Allergy Unknown N/A 03/02/2017 Medications Medication Packaging Start Date Stop Date Route Dosage Sig CYCLOBENZAPRINE TAB 10 MG (FLEXERIL) MG 02/12/2017 02/12/2017 PRN ONCE KETOROLAC VIAL INJ 30 MG/CC (TORADOL VIAL) MG 02/12/2017 02/12/2017 ONCE&1214 KETOROLAC VIAL INJ 30 MG/CC (TORADOL VIAL) MG 04/19/2017 04/19/2017 ONCE&1721 ONDANSETRON VIAL INJ 4 MG/2CC (ZOFRAN 2CC VIAL) MG 04/19/2017 04/19/2017 PRN ONCE NORMAL SALINE 1000CC IV BAG INJ 0.9 % (NS 1000CC IV BAG) ml 04/19/2017 04/19/2017 ONCE&1721 CEFTRIAXONE PREMIX IV BAG IV 1 GM/50CC (ROCEPHIN PREMIX IV BAG) GM 04/19/2017 04/19/2017 ONCE&1738 DEXAMETHASONE VIAL INJ 10 MG/CC (DECADRON VIAL) MG 04/19/2017 04/19/2017 ONCE&1843 NORMAL SALINE 1000CC IV BAG INJ 0.9 % (NS 1000CC IV BAG) ml 04/19/2017 04/19/2017 ONCE&1843 NORMAL SALINE 1000CC IV BAG INJ 0.9 % (NS 1000CC IV BAG) ml 06/08/2017 06/08/2017 ONCE&1529 NORMAL SALINE 1000CC IV BAG INJ 0.9 % (NS 1000CC IV BAG) ml 06/08/2017 06/08/2017 ONCE&1533 TETRACAINE EYE DROP DRP 0.5 % drop 06/08/2017 06/08/2017 ONCE&1534 KETOROLAC VIAL INJ 60 MG/2CC (TORADOL VIAL) MG 08/03/2017 08/03/2017 ONCE&1456 TRAMADOL TAB 50 MG (ULTRAM) MG 07/201708/15/2017 Q8H&0600,1400,2200 CETIRIZINE TAB 10 MG (ZYRTEC) MG 08/12/2017 Daily&0900 PAROXETINE TAB 20 MG (PAXIL) MG 08/201708/08/2017 Daily&0900 LEVOTHYROXINE TAB 100 MCG (SYNTHROID) MCG 08/06/2017 08/12/2017 Daily&0900 KETOROLAC VIAL INJ 60 MG/2CC (TORADOL VIAL) MG 01/08/2018 01/08/2018 ONCE&1828 LACTATED RINGERS 1000CC IV BAG INJ ml 01/08/2018 01/08/2018 ONCE&2003 LACTATED RINGERS 1000CC IV BAG INJ ml 03/24/2018 03/24/2018 ONCE&0031 IBUPROFEN TAB 600 MG (MOTRIN) MG 03/24/2018 ONCE&0032 ONDANSETRON VIAL INJ 4 MG/2CC (ZOFRAN 2CC VIAL) MG 03/24/2018 03/24/2018 ONCE&0032 CEFTRIAXONE PREMIX IV BAG IV 1 GM/50CC (ROCEPHIN PREMIX IV BAG) GM 03/24/2018 03/24/2018 ONCE&0100 ACETAMINOPHEN TAB 500 MG (TYLENOL) MG 03/24/2018 03/24/2018 PRN ONCE KETOROLAC VIAL INJ 60 MG/2CC (TORADOL VIAL) MG 05/12/2018 05/12/2018 ONCE&1303 Problems Date Dx Coded Attending Type Code Diagnosis Diagnosed By 10/16/2015 JOSE RAMON VAZQUEZ DO, Ot B96.0 MYCOPLASMA PNEUMONIAE THE CAUSE OF DI 10/16/2015 JOSE RAMON VAZQUEZ DO, Ot J06.9 ACUTE UPPER RESPIRATORY INFECTION, UNSPE 10/16/2015 JOSE RAMON VAZQUEZ DO, Ot O20.0 THREATENED 10/16/2015 JOSE RAMON VAZQUEZ DO, Ot Z3A.01 LESS THAN 8 WEEKS GESTATION OF 10/29/2015 RONAK GAMBOA DO Ot O46.90 10/29/2015 RONAK GAMBOA DO, Ot Z3A.00 03/22/2016 GAMBOA DO, RONAK K Ot O46.90 ANTEPARTUM HEMORRHAGE, UNSPECIFIED, UNSP 03/22/2016 GAMBOA DO, RONAK K Ot Z3A.00 WEEKS OF GESTATION OF NOT SPEC 03/22/2016 GAMBOA DO, RONAK K Ot O46.90 ANTEPARTUM HEMORRHAGE, UNSPECIFIED, UNSP 03/22/2016 GAMBOA DO, RONAK K Ot Z3A.00 WEEKS OF GESTATION OF NOT SPEC 03/23/2016 GAMBOA DO, RONAK K Ot O46.90 ANTEPARTUM HEMORRHAGE, UNSPECIFIED, UNSP 03/23/2016 GAMBOA DO, RONAK K Ot Z3A.00 WEEKS OF GESTATION OF NOT SPEC 03/30/2016 GAMBOA DO, RONAK K Ot O46.90 ANTEPARTUM HEMORRHAGE, UNSPECIFIED, UNSP 03/30/2016 GAMBOA DO, RONAK K Ot Z3A.00 WEEKS OF GESTATION OF NOT SPEC 06/21/2016 W 276.51 DEHYDRATION 06/21/2016 W 599.0 URINARY TRACT INFECTION, SITE NOT SPECIFIED 06/21/2016 W 780.4 DIZZINESS AND GIDDINESS 06/21/2016 W E86.0 DEHYDRATION 06/21/2016 W N39.0 URINARY TRACT INFECTION, SITE NOT SPECIFIED 06/21/2016 W R42 DIZZINESS AND GIDDINESS 02/08/2017 GAMBOA DO, RONAK K Ot O46.90 ANTEPARTUM HEMORRHAGE, UNSPECIFIED, UNSP 02/08/2017 GAMBOA DO, RONAK K Ot Z3A.00 WEEKS OF GESTATION OF NOT SPEC 02/08/2017 DINO JORDAN Ot F17.210 NICOTINE DEPENDENCE, CIGARETTES, UNCOMPL 02/08/2017 DINO JORDAN Ot K82.0 OBSTRUCTION OF GALLBLADDER 02/08/2017 DINO JORDAN Ot N94.6 DYSMENORRHEA, UNSPECIFIED 02/08/2017 DINO JORDAN Ot R10.11 RIGHT UPPER QUADRANT PAIN 02/08/2017 DINO JORDAN Ot R16.0 HEPATOMEGALY, NOT ELSEWHERE CLASSIFIED 02/09/2017 DINO JORDAN Ot F17.210 NICOTINE DEPENDENCE, CIGARETTES, UNCOMPL 02/09/2017 DINO JORDAN Ot K82.0 OBSTRUCTION OF GALLBLADDER 02/09/2017 DINO JORDAN Ot N94.6 DYSMENORRHEA, UNSPECIFIED 02/09/2017 DINO JORDAN Ot R10.11 RIGHT UPPER QUADRANT PAIN 02/09/2017 DINO JORDAN Ot R16.0 HEPATOMEGALY, NOT ELSEWHERE CLASSIFIED 02/12/2017 ACOSTA DAVILA 848.8 OTHER SPECIFIED SITES OF SPRAINS AND STRAINS 02/12/2017 ACOSTA DAVILA S39.012A STRAIN OF MUSCLE, FASCIA AND TENDON OF LOWER BACK, INIT 02/21/2017 ARMANDO ROBERTSON [employer] Ot R10.11 RIGHT UPPER QUADRANT PAIN 03/03/2017 ARMANDO ROBERTSON [employer] Ot R10.11 RIGHT UPPER QUADRANT PAIN 03/09/2017 CARRIE CAMPBELL DO Ot K81.1 CHRONIC CHOLECYSTITIS 04/19/2017 Bravo Alcaraz 462 ACUTE PHARYNGITIS 04/19/2017 Bravo Alcaraz J02.9 ACUTE PHARYNGITIS, UNSPECIFIED 06/08/2017 Yariel Turner 372.06 ACUTE CHEMICAL CONJUNCTIVITIS 06/08/2017 Yariel Turner H10.212 ACUTE TOXIC CONJUNCTIVITIS, LEFT EYE 08/03/2017 Yariel Turner 845.00 UNSPECIFIED SITE OF ANKLE SPRAIN 08/03/2017 Yariel Turner S93.401A SPRAIN OF UNSPECIFIED LIGAMENT OF RIGHT ANKLE, INIT ENCNTR 01/08/2018 Yariel Turner 786.5 CHEST PAIN 01/08/2018 Yariel Turner R07.89 OTHER CHEST PAIN 03/24/2018 ACOSTA DAVILA 034.0 STREPTOCOCCAL SORE THROAT 03/24/2018 ACOSTA DAVILA 288.60 LEUKOCYTOSIS, UNSPECIFIED 03/24/2018 ACOSTA DAVILA D72.829 ELEVATED WHITE BLOOD CELL COUNT, UNSPECIFIED 03/24/2018 ACOSTA DAVILA J02.0 STREPTOCOCCAL PHARYNGITIS Procedures There is no data. Results Test Result Range Varicella-Zoster V Ab, IgG - 08/24/16 10:55 VARICELLA ZOSTER IGG 1110 INDEX IMMUNE >165 CBC With Differential/Platelet - 09/09/16 00:00 WBC 11.1 x10E3/uL 3.4-10.8 RBC 4.39 x10E6/uL 3.77-5.28 Hemoglobin 13.1 g/dL 11.1-15.9 Hematocrit 39.6 % 34.0-46.6 MCV 90 fL 79-97 MCH 29.8 pg 26.6-33.0 MCHC 33.1 g/dL 31.5-35.7 RDW 13.7 % 12.3-15.4 Platelets 396 x10E3/uL 150-379 Neutrophils 72 % Lymphs 20 % Monocytes 7 % Eos 1 % Basos 0 % Neutrophils (Absolute) 8.0 x10E3/uL 1.4-7.0 Lymphs (Absolute) 2.2 x10E3/uL 0.7-3.1 Monocytes(Absolute) 0.7 x10E3/uL 0.1-0.9 Eos (Absolute) 0.1 x10E3/uL 0.0-0.4 Baso (Absolute) 0.0 x10E3/uL 0.0-0.2 Immature Granulocytes 0 % Immature Grans (Abs) 0.0 x10E3/uL 0.0-0.1 Genital Culture, Routine - 09/09/16 00:00 Genital Culture, Routine Note Pap Lb, rfx HPV ASCU - 09/09/16 09:15 DIAGNOSIS: Comment Specimen adequacy: Comment Clinician provided ICD10: Comment Performed by: Comment . . Note: Comment . Comment Comp. Metabolic Panel (14) - 09/13/16 09:15 Glucose, Serum 99 mg/dL 65-99 BUN 9 mg/dL 6-20 Creatinine, Serum 0.73 mg/dL 0.57-1.00 eGFR If NonAfricn Am 116 mL/min/1.73 >59 eGFR If Africn Am 134 mL/min/1.73 >59 BUN/Creatinine Ratio 12 8-20 Sodium, Serum 143 mmol/L 136-144 Potassium, Serum 4.5 mmol/L 3.5-5.2 Chloride, Serum 104 mmol/L 97-106 Carbon Dioxide, Total 24 mmol/L 18-29 Calcium, Serum 9.2 mg/dL 8.7-10.2 Protein, Total, Serum 6.7 g/dL 6.0-8.5 Albumin, Serum 4.0 g/dL 3.5-5.5 Globulin, Total 2.7 g/dL 1.5-4.5 A/G Ratio 1.5 1.1-2.5 Bilirubin, Total 0.3 mg/dL 0.0-1.2 Alkaline Phosphatase, S 96 IU/L 39-117 AST (SGOT) 15 IU/L 0-40 ALT (SGPT) 10 IU/L 0-32 Lipid Panel - 09/13/16 09:15 Cholesterol, Total 174 mg/dL 100-199 Triglycerides 98 mg/dL 0-149 HDL Cholesterol 36 mg/dL >39 VLDL Cholesterol Michele 20 mg/dL 5-40 LDL Cholesterol Calc 118 mg/dL 0-99 TSH - 09/13/16 09:15 TSH 5.590 uIU/mL 0.450-4.500 Luteinizing Hormone(LH), S - 09/13/16 09:15 LH 28.5 mIU/mL FSH, Serum - 09/13/16 09:15 FSH 7.4 mIU/mL Prolactin - 09/13/16 09:15 Prolactin 26.3 ng/mL 4.8-23.3 Insulin - 09/13/16 09:15 Insulin 23.3 uIU/mL 2.6-24.9 TSH - 10/17/16 16:07 TSH 3.580 uIU/mL 0.450-4.500 Complete urinalysis with reflex to culture - 02/08/17 19:59 Urine color determination YELLOW NRG Urine clarity determination SLIGHTLY CLOUDY NRG Urine pH measurement by test strip 7 5-9 Specific gravity of urine by test strip 1.010 1.016- 1.022 Urine protein assay by test strip, semi-quantitative NEGATIVE NEGATIVE Urine glucose detection by automated test strip NEGATIVE NEGATIVE Erythrocytes detection in urine sediment by light microscopy 5+ NEGATIVE Urine ketones detection by automated test strip NEGATIVE NEGATIVE Urine nitrite detection by test strip NEGATIVE NEGATIVE Urine total bilirubin detection by test strip NEGATIVE NEGATIVE Urine urobilinogen measurement by automated test strip (mass/volume) NORMAL NORMAL Urine leukocyte esterase detection by dipstick NEGATIVE NEGATIVE Automated urine sediment erythrocyte count by microscopy (number/high power field) [HPF] NRG Automated urine sediment leukocyte count by microscopy (number/high power field ) NONE NRG Bacteria detection in urine sediment by light microscopy TRACE NRG Squamous epithelial cells detection in urine sediment by light microscopy 2-5 NRG Crystals detection in urine sediment by light microscopy NONE NRG Casts detection in urine sediment by light microscopy NONE NRG Mucus detection in urine sediment by light microscopy NEGATIVE NRG Complete urinalysis with reflex to culture NO NRG Complete blood count (CBC) with automated white blood cell (WBC) differential - 02/08/17 20:20 Blood leukocytes automated count (number/volume) 10.0 10*3/uL 4.3-11.0 Blood erythrocytes automated count (number/volume) 4.27 10*6/uL 4.35-5.85 Venous blood hemoglobin measurement (mass/volume) 12.7 g/dL 11.5-16.0 Blood hematocrit (volume fraction) 38 % 35-52 Automated erythrocyte mean corpuscular volume 90 [foz_us] 80-99 Automated erythrocyte mean corpuscular hemoglobin (mass per erythrocyte) 30 pg 25-34 Automated erythrocyte mean corpuscular hemoglobin concentration measurement ( mass/volume) 33 g/dL 32-36 Automated erythrocyte distribution width ratio 13.6 % 10.0-14.5 Automated blood platelet count (count/volume) 334 10*3/uL 130-400 Automated blood platelet mean volume measurement 10.2 [foz_us] 7.4-10.4 Automated blood neutrophils/100 leukocytes 59 % 42-75 Automated blood lymphocytes/100 leukocytes 32 % 12-44 Blood monocytes/100 leukocytes 7 % 0-12 Automated blood eosinophils/100 leukocytes 2 % 0-10 Automated blood basophils/100 leukocytes 0 % 0-10 Blood neutrophils automated count (number/volume) 5.9 10*3 1.8-7.8 Blood lymphocytes automated count (number/volume) 3.2 10*3 1.0-4.0 Blood monocytes automated count (number/volume) 0.7 10*3 0.0-1.0 Automated eosinophil count 0.2 10*3/uL 0.0-0.3 Automated blood basophil count (count/volume) 0.0 10*3/uL 0.0-0.1 Comprehensive metabolic panel - 02/08/17 20:20 Serum or plasma sodium measurement (moles/volume) 141 mmol/L 135-145 Serum or plasma potassium measurement (moles/volume) 4.2 mmol/L 3.6-5.0 Serum or plasma chloride measurement (moles/volume) 109 mmol/L 98-107 Carbon dioxide 20 mmol/L 21-32 Serum or plasma anion gap determination (moles/volume) 12 mmol/L 5-14 Serum or plasma urea nitrogen measurement (mass/volume) 11 mg/dL 7-18 Serum or plasma creatinine measurement (mass/volume) 0.76 mg/dL 0.60-1.30 Serum or plasma urea nitrogen/creatinine mass ratio 14 NRG Serum or plasma creatinine measurement with calculation of estimated glomerular filtration rate > NRG Serum or plasma glucose measurement (mass/volume) 100 mg/dL 70-105 Serum or plasma calcium measurement (mass/volume) 9.0 mg/dL 8.5-10.1 Serum or plasma total bilirubin measurement (mass/volume) 0.2 mg/dL 0.1-1.0 Serum or plasma alkaline phosphatase measurement (enzymatic activity/volume) 96 U/L 40-136 Serum or plasma aspartate aminotransferase measurement (enzymatic activity/ volume) 20 U/L 5-34 Serum or plasma alanine aminotransferase measurement (enzymatic activity/volume ) 22 U/L 0-55 Serum or plasma protein measurement (mass/volume) 6.4 g/dL 6.4-8.2 Serum or plasma albumin measurement (mass/volume) 3.8 g/dL 3.2-4.5 Lipase - 02/08/17 20:20 Lipase 19 U/L 8-78 TSH - 02/09/17 12:45 TSH 6.980 uIU/mL 0.450-4.500 Test-Serum - 02/12/17 12:01 Preg Test-S Negative Negative Drug Screen + ETOH - 02/12/17 13:20 Piano Maker Jalil Lancaster Donor ID By Photo ID Ethanol, Urine <10.00 mg/dL 20.00-80.00 Location [facility] [place] Employee Reason For Test Post Accident Temperature In Range YES Deg F 90.00-100.00 Urine Amphetamines NEGATIVE Urine Barbiturates NEGATIVE Urine Benzodiazepines NEGATIVE Urine Cocaine NEGATIVE Urine MDMA NEGATIVE Urine Methadone NEGATIVE Urine Methamphetamines NEGATIVE Urine Opiates NEGATIVE Urine Oxycodone NEGATIVE Urine PCP NEGATIVE Urine THC Metabolite NEGATIVE Urine beta human chorionic gonadotropin (hCG) measurement - 03/09/17 09:40 Urine beta human chorionic gonadotropin (hCG) measurement NEGATIVE NEGATIVE Methicillin resistant Staphylococcus aureus (MRSA) screening culture - 09:40 Methicillin resistant Staphylococcus aureus (MRSA) screening culture NEG NRG TSH - 03/20/17 00:00 TSH 0.717 uIU/mL 0.450-4.500 Urinalysis - 04/19/17 17:21 Icotest N/A Negative Urine Volume Urine Volume Sufficient (10mL) Urine Yeast No Yeast present Urine-Appearance Clear Clear Urine-Bacteria Negative Urine-Bilirubin Negative Negative Urine-Blood 2+ Negative Urine-Color Yellow Colorless-Lt. Yellow Urine-Epithelial Cells 10-20/HPF Urine-Glucose Negative Negative Urine-Ketones 2+ Negative Urine-Leukocytes Negative Negative Urine-Nitrite Negative Negative Urine-Other Urine Saved if Culture Needed (48hrs from time of collection) Urine-pH 5.5 5-8.5 Urine-Protein Negative Negative Urine-RBC Negative Urine-Specific [place] 1.025 1.000-1.030 Urine-WBC Nothing Seen on Microscopic Urobilinogen 1.0 E.U./dL 0.2-1.0 Quik Strep - 04/19/17 17:38 Quik Strep Negative - confirmation culture set. Negative TSH - 06/01/17 11:54 TSH 2.280 uIU/mL 0.450-4.500 Drug Screen + ETOH - 06/08/17 15:45 Piano Maker Janice Sol Donor ID By Photo ID Ethanol, Urine <10.00 mg/dL 20.00-80.00 Location [facility] [place] Employee Reason For Test Post Accident Temperature In Range YES Deg F 90.00-100.00 Urine Amphetamines NEGATIVE Urine Barbiturates NEGATIVE Urine Benzodiazepines NEGATIVE Urine Cocaine NEGATIVE Urine MDMA NEGATIVE Urine Methadone NEGATIVE Urine Methamphetamines NEGATIVE Urine Opiates NEGATIVE Urine Oxycodone NEGATIVE Urine PCP NEGATIVE Urine THC Metabolite NEGATIVE Drug Screen + ETOH - 08/03/17 15:32 Piano Maker Tabatha Perry Donor ID By Employer Representitive Ethanol, Urine <10.00 mg/dL 20.00-80.00 Location [facility] [place] Employee Reason For Test Post Accident Temperature In Range YES Deg F 90.00-100.00 Urine Amphetamines NEGATIVE Urine Barbiturates NEGATIVE Urine Benzodiazepines NEGATIVE Urine Cocaine NEGATIVE Urine MDMA NEGATIVE Urine Methadone NEGATIVE Urine Methamphetamines NEGATIVE Urine Opiates NEGATIVE Urine Oxycodone NEGATIVE Urine PCP NEGATIVE Urine THC Metabolite NEGATIVE Comprehensive Metabolic Panel - 01/08/18 18:28 Albumin 3.7 g/dL 3.6-5.1 ALP 87 U/L 35-130 ALT 15 U/L 6-45 Anion Gap 12 6-14 AST 14 U/L 2-40 BUN 14 mg/dL 5-25 Calcium 9.4 mg/dL 8.3-10.4 Chloride 108 mmol/L 95-114 CO2 23 mEq/L 22-33 Creat 0.73 mg/dL 0.50-1.50 eGFR 97 mL/min/1.73m2 >59 Globulin 3.2 g/dL 2.3-3.5 Glucose 82 mg/dL 70-110 Osmo 287 280-295 Potassium 3.8 mmol/L 3.5-5.3 Sodium 139 mmol/L 134-148 TBil 0.3 mg/dL 0.2-1.2 TP 6.9 g/dL 6.0-8.3 Urinalysis - 01/08/18 18:42 Icotest N/A Negative Urine Crystals Amorphous material: few/HPF Urine Volume Urine Volume Sufficient (10mL) Urine-Appearance Slightly cloudy Clear Urine-Bacteria Trace Urine-Bilirubin Negative Negative Urine-Blood Negative Negative Urine-Color Yellow Colorless-Lt. Yellow Urine-Epithelial Cells 5-10/HPF Urine-Glucose Negative Negative Urine-Ketones Negative Negative Urine-Leukocytes Negative Negative Urine-Nitrite Negative Negative Urine-Other Urine Saved if Culture Needed (48hrs from time of collection) Urine-pH 7.0 5-8.5 Urine-Protein Negative Negative Urine-RBC 0-2/HPF Urine-Specific [place] 1.020 1.000-1.030 Urine-WBC 0-2/HPF Urobilinogen 1.0 0.2-1.0 Lipase - 01/08/18 18:48 Lipase 27 U/L 7-59 PDM - AMPHETAMINES W/ REFLEX d/l ISOMERS - 02/22/18 16:00 Prescribed Drug 1 Tramadol NRG COMMENT NRG Amphetamine NEGATIVE ng/mL <250 medMATCH Amphetamine CONSISTENT NRG Methamphetamine NEGATIVE ng/mL <250 medMATCH Methamphetamine CONSISTENT NRG PDM - TRAMADOL - 02/22/18 16:00 Prescribed Drug 1 Tramadol NRG COMMENT NRG Desmethyltramadol NEGATIVE ng/mL <100 medMATCH Desmethyltram INCONSISTENT NRG Tramadol NEGATIVE ng/mL <100 medMATCH Tramadol INCONSISTENT NRG Comprehensive Metabolic Panel - 03/24/18 00:35 Albumin 3.9 g/dL 3.6-5.1 ALP 93 U/L 35-130 ALT 22 U/L 6-45 Anion Gap 17 6-14 AST 14 U/L 2-40 BUN 10 mg/dL 5-25 Calcium 9.8 mg/dL 8.3-10.4 Chloride 105 mmol/L 95-114 CO2 21 mEq/L 22-33 Creat 0.77 mg/dL 0.50-1.50 eGFR 91 mL/min/1.73m2 >59 Globulin 3.3 g/dL 2.3-3.5 Glucose 169 mg/dL 70-110 Osmo 290 280-295 Potassium 4.3 mmol/L 3.5-5.3 Sodium 139 mmol/L 134-148 TBil 0.3 mg/dL 0.2-1.2 TP 7.2 g/dL 6.0-8.3 Encounters ACCT No. Visit Date/Time Discharge Status Pt. Type Provider Facility Loc./Unit Complaint [id number] 03/09/2017 09:33:00 03/09/2017 16:05:00 DIS Outpatient CARRIE CAMPBELL DO [facility] SDC BILIARY DYSKENSIA [id number] 03/02/2017 05:31:00 03/02/2017 10:13:00 DIS Outpatient CARRIE CAMPBELL DO [facility] PREOP BILIARY DYSKENSIA [id number] 02/20/2017 11:40:00 02/20/2017 23:59:59 CLS Outpatient ARMANDO ROBERTSON [facility] CARD RUQ ABD PAIN [id number] 02/08/2017 19:45:00 02/08/2017 21:16:00 DIS Emergency DINO JORDAN [facility] ER ABD PAIN [id number] 10/19/2015 11:44:00 10/19/2015 23:59:59 CLS Outpatient RONAK GAMBOA DO [facility] LAB VAGINAL BLEEDING DURING ANTEPARTUM [id number] 10/16/2015 01:07:00 10/16/2015 02:49:00 DIS Emergency JOSE RAMON VAZQUEZ DO [facility] ER SPOTTING/5 WKS PREG [id number] 2016 08:42:00 Document Registration [id number] 08/24/2016 10:52:00 Document Registration [id number] 09/14/2016 13:06:00 Document Registration [id number] 09/10/2016 08:07:00 Document Registration [id number] 02/10/2017 09:08:00 Document Registration [id number] 06/02/2017 08:36:00 Document Registration [id number] 09/14/2016 13:06:00 Document Registration [id number] 09/12/2016 08:35:00 Document Registration [id number] 03/21/2017 08:06:00 Document Registration [id number] 03/24/2018 00:05:00 03/24/2018 03:20:00 DIS Outpatient GIOVANNI [facility] ER [id number] 01/08/2018 17:54:00 01/08/2018 22:38:00 [id number] 08/29/2017 09:35:00 08/29/2017 23:59:00 DIS Outpatient ADELITA, LUIS ALFREDO [id number] 08/03/2017 14:05:00 08/03/2017 15:54:00 [facility] [id number] 06/08/2017 14:30:00 06/08/2017 15:48:00 [id number] 04/19/2017 17:17:00 04/19/2017 18:40:00 [id number] 02/12/2017 11:34:00 02/12/2017 13:40:00 DIS Outpatient GIOVANNI ACOSTA [id number] 02/12/2017 12:13:58 Document Registration [id number] 06/21/2016 20:03:00 Document Registration [id number] 03/23/2018 10:40:00 03/23/2018 23:59:59 CLS Outpatient ARMANDO ROBERTSON APRN [facility] [id number] 02/22/2018 15:40:00 Document Registration
--- OUTSIDE RECORDS SUMMARY | 2018-05-13 20:33 | XMS REPORT ---
Author Author ARMANDO ROBERTSON Organization [facility] Address [address] [place] [address] Care Team Providers Care Mica Paster Name Role Phone ARMANDO ROBERTSON Unavailable PROBLEMS Type Condition ICD9-CM Code [id number] Code Onset Dates Condition Status SNOMED Code Problem Depressive disorder, not elsewhere classified F32.9 Active 81017934 Problem Anxiety state, unspecified F41.1 Active 281186123 Problem RLS (restless legs syndrome) G25.81 Active 47010645 Problem Hypothyroidism (acquired) E03.9 Active 152923540 Problem Acquired hypothyroidism E03.9 Active 629211109 ALLERGIES No Information ENCOUNTERS Encounter Location Date Diagnosis [facility] [address] [address] Feb, Sore throat J02.9 and Seasonal allergic rhinitis, unspecified trigger J30.[address] [address] Jan, Controlled substance agreement signed Z79.899 and Acute non- recurrent maxillary sinusitis J01.00 [facility] [id number] [place] [address] Jan, Acute non-recurrent maxillary sinusitis J01.00 and Body aches R52 [facility] [id number] [place] [address] Dec, Viral gastroenteritis A08.[address] [address] Nov, Morbid obesity due to excess calories E66.01 [facility] [id number] [place] [address]20- 6730 Nov, Morbid obesity due to excess calories E66.01 [facility] [id number] [place] [address] Oct, Body aches R52 and Viral illness B34.9 [facility] [id number] [place] [address] Oct, [place] [id number] [place] [address] 66432- 7324 Oct, Morbid obesity due to excess calories E66.01 [place] [id number] [place] [address] 72370- 1505 Aug, Morbid obesity due to excess calories E66.01 [place] [address] [address] Jul, Morbid obesity due to excess calories E66.01 [facility] [place] [id number] [place] [address]32 Jun, Abdominal pain R10.9 and Cystitis N30.90 [place] [id number] [place] [address] 12476- 7559 Jun, Morbid obesity due to excess calories E66.01 [facility] [id number] [place] [address]13 [address] May, Acute gastroenteritis K52.9 [place] [id number] [place] [address] 57527- 2341 May, Anxiety state, unspecified F41.1 [place] [id number] [place] [address] 68901- 3781 May, Depressive disorder, not elsewhere classified F32.9 and Anxiety state, unspecified F41.1 [facility] [id number] [place] [address] 08916 [address]8771 May, Tachycardia R00.0 and Acute upper respiratory infection, unspecified J06.9 [place] [id number] [place] [address] 80148- 4531 May, Hypothyroidism (acquired) E03.9 ; Acquired hypothyroidism E03.9 and Morbid obesity due to excess calories E66.01 [facility] [id number] [place] [address]28 [address] March, Strep throat J02.0 and Sore throat J02.9 [facility] [id number] [place] [address] 55921- 0522 Feb, Acquired hypothyroidism E03.9 [facility] [id number] [place] [address] 27224- 8813 Feb, Acquired hypothyroidism E03.9 [facility] [address] 38842- 4869 Feb, Acquired hypothyroidism E03.9 [facility] [id number] [place] [address] 89624- 9352 Jan, Acute bilateral low back pain without sciatica M54.5 [facility] [id number] [place] [address] 92555- 9922 Jan, [facility] [address] [address]68[address] Jan, Acquired hypothyroidism E03.9 [facility] [id number] [place] [address] 55751- 6497 Jan, Acquired hypothyroidism E03.9 [facility] [id number] [place] [address] 67466- 5253 Jan, Acquired hypothyroidism E03.9 and Right upper quadrant abdominal pain R10.11 [facility] [id number] [place] [address] 87393- 6031 Nov, Acquired hypothyroidism E03.9 [facility] [id number] [place] [address] 87793 -0817 Nov, Acute non-recurrent frontal sinusitis J01.10 [facility] [id number] [place] [address] 56007 -7628 Nov, Viral gastroenteritis A08.4 [place] [id number] [place] [address] 27982- 9333 Oct, Acquired hypothyroidism E03.9 and RLS (restless legs syndrome) G25.81 [place] [id number] [place] [address] 21363- 0757 Sep, Acquired hypothyroidism E03.9 and RLS (restless legs syndrome) G25.81 [facility] [place] [address] [address] Aug, Acute non-recurrent maxillary sinusitis J01.00 [place] [address] 46[address]- 2763 Aug, [place] [address] 53094- 7578 Aug, [place] [address] 14771- 4669 Aug, Family history of PCOS Z84.2 and Well woman exam with routine gynecological exam Z01.419 [place] [address] [address]96- 2714 14 Aug, 2016 Family history of PCOS Z84.2 and Well woman exam with routine gynecological exam Z01.419 [place] [id number] [place] [address] 09968- 1399 Jul, [facility] [place] [id number] [place] [address] 11706 [address]1645 Jun, Viral gastroenteritis A08.4 [facility] [place] [address] 98[address] Jun, Dysuria R30.0 [place] [address] 67207- 1665 May, [facility] [place] [address] 49[address]0347 Apr, Left otitis media, unspecified chronicity, unspecified otitis media type H66.92 [place] [id number] [place] [address] 13706- 6738 Apr, Cough R05 [place] [address] 058[address] 38[address] March, Mild intermittent asthma without complication J45.20 [facility] [address] [address] Feb, Fever R50.9 and Strep throat J02.0 [facility] [address] [address] Feb, Body aches R52 ; Sore throat J02.9 ; Amenorrhea N91.2 and Acute sinusitis J01.90 [place] [address] 44273- 2909 Feb, Encounter for test Z32.00 [facility] [address] 8[address] Oct, URI (upper respiratory infection) J06.9 and Cough R05 [place] [address] 70863[address] 2105 Oct, Complete miscarriage O03.9 [place] [address] 55488- 4108 Oct, Complete miscarriage O03.9 [place] [address] 48572- 5033 Oct, Vaginal bleeding during , antepartum O46.90 [place] [address] 990[address]- 5617 Oct, Abnormal ultrasound of ovary R93.5 [place] [address] 06434- 9799 Sep, Complete miscarriage O03.9 [place] [address] [place] [address] Sep, [facility] [address] [facility] [id number] [place] [address] Sep, Vaginal bleeding during , antepartum O46.90 [...] History cholecystectomy 03/09/17 Hospitalization History Kidney Infection [facility] 15 yoa
--- OUTSIDE RECORDS SUMMARY | 2018-05-13 20:33 | XMS REPORT ---
Author Author ARMANDO ROBERTSON Organization [facility] Address [address] [place] [address] Care Team Providers Care Review Analyst Name Role Phone MARCELO ARMANDO Unavailable PROBLEMS Type Condition ICD9-CM Code [id number] Code Onset Dates Condition Status SNOMED Code Problem URI (upper respiratory infection) J06.9 Active 08264039 Problem Cough R05 Active 75493245 Problem Depressive disorder, not elsewhere classified F32.9 Active 46738574 Problem Anxiety state, unspecified F41.1 Active 585401777 Problem Acquired hypothyroidism E03.9 Active 958962165 Problem RLS (restless legs syndrome) G25.81 Active 28794391 Problem Hypothyroidism (acquired) E03.9 Active 656211362 Problem Morbid obesity due to excess calories E66.01 Active 265273954 ALLERGIES Substance Reaction Event Type Date Status Latex Unknown Non Drug Allergy Oct, Active SOCIAL HISTORY No smoking Hx information available PLAN OF CARE Activity Details Follow Up 3 Months Reason:thyroid VITAL SIGNS Height 68 in 2016-11-17 Weight 255 lbs 2016-11-17 Temperature 98.4 degrees Fahrenheit 2016-11-17 Heart Rate 80 bpm 2016-11-17 Respiratory Rate 16 2016-11-17 BMI 38.77 kg/m2 2016-11-17 Blood pressure systolic 130 mmHg 2016-11-17 Blood pressure diastolic 84 mmHg 2016-11-17 MEDICATIONS Medication Instructions Dosage Frequency Start Date End Date Duration Status Levothyroxine Sodium 75 mcg Orally Once a day 1 tablet on an empty stomach in the morning 24h Aug, 30 day(s) Active Vitamins 0.8 MG Orally Once a day 1 tablet 24h Active Omeprazole 20 mg Orally Once a day 2 capsules 24h Jul, 30 day(s ) Active Zyrtec Allergy Active Tramadol HCl 50 mg Orally Once a day 1 tablet as needed 24h Sep, Active RESULTS No Results PROCEDURES Procedure Date Ordered Related Diagnosis Body Site Office Visit, Est Pt., Level 3 Nov 17, 2016 IMMUNIZATIONS No Known Immunizations
--- OUTSIDE RECORDS SUMMARY | 2018-05-13 20:33 | XMS REPORT ---
Author Author TONEY SALEEM Organization [facility] Address [address] [place] [address] Care Team Providers Care Public Health Program Manager Name Role Phone TONEY SALEEM Unavailable PROBLEMS Type Condition ICD9-CM Code [id number] Code Onset Dates Condition Status SNOMED Code Problem Depressive disorder, not elsewhere classified F32.9 Active 35176421 Problem Anxiety state, unspecified F41.1 Active 321473001 Problem RLS (restless legs syndrome) G25.81 Active 89736040 Problem Hypothyroidism (acquired) E03.9 Active 845622314 Problem Acquired hypothyroidism E03.9 Active 284319571 ALLERGIES Substance Reaction Event Type Date Status Morphine Sulfate vomiting Drug Allergy Oct, Active Latex Unknown Non Drug Allergy Oct, Active ENCOUNTERS Encounter Location Date Diagnosis [facility] [address] [address] Feb, Sore throat J02.9 and Seasonal allergic rhinitis, unspecified trigger J30.2 [facility] [id number] [place] [address]79[address] 5036 Jan, Controlled substance agreement signed Z79.899 and Acute non- recurrent maxillary sinusitis J01.00 [facility] [id number] [place] [address] Jan, Acute non-recurrent maxillary sinusitis J01.00 and Body aches R52 [facility] [address] [address] Dec, Viral gastroenteritis A08.4 [facility] [id number] [place] [address] 53504- 5298 Nov, Morbid obesity due to excess calories E66.01 [facility] [address] [place] [address] Nov, Morbid obesity due to excess calories E66.01 [facility] [id number] [place] [address] 12393 [address]6941 Oct, Body aches R52 and Viral illness B34.9 [facility] [place] [id number] [place] [address]86 -9232 Oct, [place] [address] 22758[address]37 Oct, Morbid obesity due to excess calories E66.01 [place] [address] 40485- 8020 Aug, Morbid obesity due to excess calories E66.01 [place] [id number] [place] [address] 85422- 2780 Jul, Morbid obesity due to excess calories E66.01 [facility] [place] [id number] [place] [address] 90295 -1265 Jun, Abdominal pain R10.9 and Cystitis N30.90 [place] [address] 04[address]- 9317 Jun, Morbid obesity due to excess calories E66.01 [facility] [place] [id number] [place] [address]76 -0576 May, Acute gastroenteritis K52.9 [place] [id number] [place] [address] 60724- 8383 May, Anxiety state, unspecified F41.1 [place] [address] [id number] [place] [address] 92374- 4797 May, Depressive disorder, not elsewhere classified F32.9 and Anxiety state, unspecified F41.1 [facility] [id number] [place] [address] 32578 -0822 May, Tachycardia R00.0 and Acute upper respiratory infection, unspecified J06.9 [facility] [address] [place] [address] 96039- 8296 May, Hypothyroidism (acquired) E03.9 ; Acquired hypothyroidism E03.9 and Morbid obesity due to excess calories E66.01 [facility] [address] [place] [address] 39391 -3309 March, Strep throat J02.0 and Sore throat J02.9 [facility] [id number] [place] [address] 45424- 6639 Feb, Acquired hypothyroidism E03.9 [facility] [id number] [place] [address] 90592- 2500 Feb, Acquired hypothyroidism E03.9 [facility] [id number] [place] [address] 44587- 2138 Feb, Acquired hypothyroidism E03.9 [facility] [id number] [place] [address] 06762- 7065 Jan, Acute bilateral low back pain without sciatica M54.5 [facility] [id number] [place] [address] 42217- 6076 Jan, [facility] [id number] [place] [address] 25106- 4765 Jan, Acquired hypothyroidism E03.9 [facility] [id number] [place] [address] 61036- 3300 Jan, Acquired hypothyroidism E03.9 [facility] [id number] [place] [address] 01439- 5327 Jan, Acquired hypothyroidism E03.9 and Right upper quadrant abdominal pain R10.11 [facility] [id number] [place] [address] 44715- 5711 Nov, Acquired hypothyroidism E03.9 [facility] [address] [place] [address] 85214 -0112 Nov, Acute non-recurrent frontal sinusitis J01.10 [facility] [id number] [place] [address] 68409 -9120 Nov, Viral gastroenteritis A08.4 [facility] [id number] [place] [address] 37071- 8685 Oct, Acquired hypothyroidism E03.9 and RLS (restless legs syndrome) G25.81 [facility] [address] [address] Sep, Acquired hypothyroidism E03.9 and RLS (restless legs syndrome) G25.81 [facility] [address] 41690 -0867 Aug, Acute non-recurrent maxillary sinusitis J01.00 [place] [address] [address]00- [address] Aug, [facility] [address] 46150- 4004 Aug, [facility] [address] 41143- 5270 18 Aug, 2016 Family history of PCOS Z84.2 and Well woman exam with routine gynecological exam Z01.419 [place] [id number] [place] [address] 58133- 2150 14 Aug, 2016 Family history of PCOS Z84.2 and Well woman exam with routine gynecological exam Z01.419 [facility] [id number] [place] [address] 77134- 5385 Jul, [facility] [id number] [place] [address] 19705 -9651 Jun, Viral gastroenteritis A08.4 [facility] [id number] [place] [address] 01052 -2232 Jun, Dysuria R30.0 [place] [address] 94515- 9446 May, [facility] [id number] [place] [address] 69677 -9421 Apr, Left otitis media, unspecified chronicity, unspecified otitis media type H66.92 [place] [address] 79425- 2380 Apr, Cough R05 [place] [address] 27708- 7280 March, Mild intermittent asthma without complication J45.20 [facility] [place] [address] 57985 -6262 Feb, Fever R50.9 and Strep throat J02.0 [facility] [place] [address] 93627 -8170 Feb, Body aches R52 ; Sore throat J02.9 ; Amenorrhea N91.2 and Acute sinusitis J01.90 [place] [address] 30514- 4993 Feb, Encounter for test Z32.00 [facility] [place] [address] [address]77 [address] Oct, URI (upper respiratory infection) J06.9 and Cough R05 [place] [address] 55602- 6648 Oct, Complete miscarriage O03.9 [place] [address] 73477- 5872 Oct, Complete miscarriage O03.9 [place] [address] 10849- 2777 Oct, Vaginal bleeding during , antepartum O46.90 [place] [address] 19190- 4416 Oct, Abnormal ultrasound of ovary R93.5 [place] [address] 43677- 5721 Sep, Complete miscarriage O03.9 [facility] [address] [facility] [id number] [place] [address] Sep, [facility] [address] [facility] [id number] [place] [address] Sep, Vaginal bleeding during , antepartum O46.90 IMMUNIZATIONS No Known Immunizations SOCIAL HISTORY Never Assessed REASON FOR VISIT flu symptoms/headache/body aches/fever ray de leon PLAN OF CARE Activity Details Follow Up prn Reason: VITAL SIGNS Height 68 in 2017-11-24 Weight 257.8 lbs 2017-11-24 Temperature 98.9 degrees Fahrenheit 2017-11-24 Heart Rate 72 bpm 2017-11-24 Respiratory Rate 18 2017-11-24 BMI 39.19 kg/m2 2017-11-24 Blood pressure systolic 126 mmHg 2017-11-24 Blood pressure diastolic 74 mmHg 2017-11-24 MEDICATIONS Medication Instructions Dosage Frequency Start Date End Date Duration Status Phentermine HCl 15 MG Orally Once a day 1 capsule 24h Jul, 28 days Active Omeprazole 20 mg Orally Once a day 2 capsules 24h 180 Active Paxil 20 MG Orally Once a day 1 tablet in the morning 24h 30 Active Levothyroxine Sodium 100 MCG Orally Once a day 1 tablet on an empty stomach in the morning 24h 90 days Active Cetirizine HCl 10 mg Orally Once a day 1 tablet 24h 30 Active Proventil HFA 108 (90 Base) MCG/ACT Inhalation 4 times a day 2 puffs as needed 6h March, Active RESULTS Name Result Date Reference Range INFLUENZA A & B (IN HOUSE) INFLUENZA A negative INFLUENZA B negative Control + Lot # [id number] Exp date 2020-02-24 PROCEDURES Procedure Date Ordered Result Body Site INFLUENZA ASSAY W/OPTIC Nov 24, 2017 INSTRUCTIONS MEDICATIONS ADMINISTERED No Known Medications MEDICAL (GENERAL) HISTORY Type Description Date Medical History depression Medical History hypothyroid Surgical History breast biopsy--left 06/2015 Surgical History cholecystectomy 03/09/17 Hospitalization History Kidney Infection [facility] 15 yoa
--- NOTE | 2018-05-13 20:41 | ED Chest Pain ---
General Chief Complaint: Chest Pain Stated Complaint: CP SOA History of Present Illness Date Seen by Provider: May 13, 2018 Time Seen by Provider: 20:36 Initial Comments Patient is a 27-year-old female who presents to the emergency room with chest pain and shortness of breath that started at 1900 today. She reports that she has experienced this several times over the last couple of weeks, she reports that she was seen yesterday at the [facility] ER for the same thing yesterday and given azithromycin. 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.) Modifying Factors: worse with breathing ASA po CUSTOMER RELATIONS COORDINATOR: No NTG SL CUSTOMER RELATIONS COORDINATOR: No Associated Symptoms: No abdominal pain, No dizziness, No fatigue, No headache; shortness of breath (CHARLIE DE SOUZA STUDENT) Allergies and Home Medications Allergies Coded Allergies: latex (Verified Allergy, Unknown, 03/02/17) Uncoded Allergies: PCN (Allergy, Unknown, 05/13/18) Home Medications Cetirizine HCl 10 Mg Tablet, 10 MG PO DAILY, (Reported) Docusate Sodium 100 Mg Capsule, 100 MG PO BID Prescribed by: CHRISTIANO COMBS on 03/09/17 1149 Hydrocodone Bit/Acetaminophen 1 Each Tablet, 1 EA PO Q4-6HR PRN for pain Prescribed by: CHRISTIANO COMBS on 03/09/17 1149 Levothyroxine Sodium 100 Mcg Tablet, 100 MCG PO DAILY, (Reported) Omeprazole 40 Mg Capsule.dr, 40 MG PO DAILY, (Reported) Patient Home Medication List Home Medication List Reviewed: Yes (CHARLIE DE SOUZA STUDENT) Review of Systems Constitutional: see HPI; No chills, No diaphoresis, No weakness, No weight gain EENTM: See HPI; No Blurred Vision, No Double Vision Respiratory: See HPI, Cough, Shortness of Air, Other (increased pain with inspiration) Cardiovascular: See HPI, Chest Pain; Denies Edema, Denies Irregular Heart Rate , Denies Lightheadedness, Denies Palpitations, Denies Syncope Gastrointestinal: See HPI; Denies Abdomen Distended, Denies Abdominal Pain, Denies Blood Streaked Stools Genitourinary: See HPI; Denies Burning, Denies Discharge Musculoskeletal: see HPI; No back pain, No gout, No joint pain Skin: see HPI; No change in color, No change in hair/nails, No dryness Psychiatric/Neurological: See HPI; Denies Anxiety, Denies Depressed Endocrine: See HPI; Denies Excessive Sweating, Denies Flushing Hematologic/Lymphatic: See HPI; Denies Anemia (CHARLIE DE SOUZA STUDENT) All Other Systems Reviewed Negative Unless Noted: Yes (CHARLIE DE SOUZA STUDENT) Past Hcavsjq-Ivbids-Pldavo Hx Past Med/Social Hx: Reviewed Nursing Past Med/Soc Hx (CHARLIE DE SOUZA STUDENT) Patient Social History Type Used: Cigarettes Recent Foreign Travel: No Contact w/Someone Who Travel: No Recent Hopitalizations: No (CHARLIE DE SOUZA STUDENT) Immunizations Up To Date Tetanus Booster (TDap): Unknown Date of Influenza Vaccine: Sep 05, 2016 (CHARLIE DE SOUZA) Seasonal Allergies Seasonal Allergies: Yes (CHARLIE DE SOUZA) Past Medical History Breast Asthma Reproductive Disorders: No Female Reproductive Disorders: Denies Sexually Transmitted Disease: No HIV/AIDS: No Gastroesophageal Reflux Loss of Vision: Bilateral Hearing Impairment: Denies Depression Adverse Reaction/Blood Tranf: No (CHARLIE DE SOUZA STUDENT) Family Medical History Reviewed Nursing Family Hx (CHARLIE DE SOUZA STUDENT) No Pertinent Family Hx (CHARLIE DE SOUZA) Physical Exam Vital Signs Vital Signs - First Documented 05/13/18 20:28 Temp 97.5 Pulse 91 Resp 20 B/P (MAP) 125/82 (96) Pulse Ox 94 O2 Delivery Room Air (ONELIA BLACKBURN) Vital Signs Capillary Refill : (CHARLIE DE SOUZA STUDENT) General Appearance: No Apparent Distress, WD/WN HEENT: TMs Normal, Normal ENT Inspection, Pharynx Normal Neck: Normal Inspection, Non Tender, Supple Respiratory: Chest Non Tender, Lungs Clear, Normal Breath Sounds, No Accessory Muscle Use, No Respiratory Distress Cardiovascular: Regular Rate, Rhythm, No Edema, No Gallop, No JVD, No Murmur, Normal Peripheral Pulses Gastrointestinal: Normal Bowel Sounds, Non Tender, Soft Extremity: Normal Capillary Refill, Normal Inspection, Normal Range of Motion Neurologic/Psychiatric: Alert, Oriented x3, Normal Mood/Affect Skin: Normal Color, Warm/Dry Lymphatic: No Adenopathy (CHARLIE DE SOUZA STUDENT) Progress/Results/Core Measures Results/Orders Lab Results Laboratory Tests Test 05/13/18 20:24 05/13/18 20:40 Range/Units Urine Color YELLOW Urine Clarity CLEAR Urine pH 5 5-9 Urine Specific [place] 1.020 1.016-1.022 Urine Protein NEGATIVE NEGATIVE Urine Glucose (UA) NEGATIVE NEGATIVE Urine Ketones NEGATIVE NEGATIVE Urine Nitrite NEGATIVE NEGATIVE Urine Bilirubin NEGATIVE NEGATIVE Urine Urobilinogen NORMAL NORMAL MG/DL Urine Leukocyte Esterase 1+ H NEGATIVE Urine RBC (Auto) 1+ H NEGATIVE Urine RBC 2-5 H /HPF Urine WBC 0-2 /HPF Urine Squamous Epithelial Cells 10-25 H /HPF Urine Crystals NONE /LPF Urine Bacteria TRACE /HPF Urine Casts NONE /LPF Urine Mucus NEGATIVE /LPF Urine Culture Indicated NO Urine Test NEGATIVE NEGATIVE Urine Opiates Screen NEGATIVE NEGATIVE Urine Oxycodone Screen NEGATIVE NEGATIVE Urine Methadone Screen NEGATIVE NEGATIVE Urine Propoxyphene Screen NEGATIVE NEGATIVE Urine Barbiturates Screen NEGATIVE NEGATIVE Ur Tricyclic Antidepressants Screen NEGATIVE NEGATIVE Urine Phencyclidine Screen NEGATIVE NEGATIVE Urine Amphetamines Screen NEGATIVE NEGATIVE Urine Methamphetamines Screen NEGATIVE NEGATIVE Urine Benzodiazepines Screen NEGATIVE NEGATIVE Urine Cocaine Screen NEGATIVE NEGATIVE Urine Cannabinoids Screen NEGATIVE NEGATIVE White Blood Count 13.1 H 4.3-11.0 10^3/uL Red Blood Count 4.21 L 4.35-5.85 10^6/uL Hemoglobin 12.6 11.5-16.0 G/DL Hematocrit 38 35-52 % Mean Corpuscular Volume 91 80-99 FL Mean Corpuscular Hemoglobin 30 25-34 PG Mean Corpuscular Hemoglobin Concent 33 32-36 G/DL Red Cell Distribution Width 13.8 10.0-14.5 % Platelet Count 364 130-400 10^3/uL Mean Platelet Volume 10.5 H 7.4-10.4 FL Neutrophils (%) (Auto) 65 42-75 % Lymphocytes (%) (Auto) 26 12-44 % Monocytes (%) (Auto) 8 0-12 % Eosinophils (%) (Auto) 1 0-10 % Basophils (%) (Auto) 0 0-10 % Neutrophils # (Auto) 8.6 H 1.8-7.8 X 10^3 Lymphocytes # (Auto) 3.4 1.0-4.0 X 10^3 Monocytes # (Auto) 1.1 H 0.0-1.0 X 10^3 Eosinophils # (Auto) 0.1 0.0-0.3 10^3/uL Basophils # (Auto) 0.0 0.0-0.1 10^3/uL Sodium Level 140 135-145 MMOL/L Potassium Level 4.1 3.6-5.0 MMOL/L Chloride Level 109 H 98-107 MMOL/L Carbon Dioxide Level 23 21-32 MMOL/L Anion Gap 8 5-14 MMOL/L Blood Urea Nitrogen 10 7-18 MG/DL Creatinine 0.70 0.60-1.30 MG/DL Estimat Glomerular Filtration Rate > 60 BUN/Creatinine Ratio 14 Glucose Level 94 70-105 MG/DL Calcium Level 10.0 8.5-10.1 MG/DL Total Bilirubin 0.3 0.1-1.0 MG/DL Aspartate Amino Transf (AST/SGOT) 15 5-34 U/L Alanine Aminotransferase (ALT/SGPT) 14 0-55 U/L Alkaline Phosphatase 90 40-136 U/L Total Protein 7.5 6.4-8.2 GM/DL Albumin 4.0 3.2-4.5 GM/DL (ONELIA BLACKBURN) My Orders Orders - ONELIA BLACKBURN Ekg Tracing (05/13/18 20:28) Cbc With Automated Diff (05/13/18 20:46) Comprehensive Metabolic Panel (05/13/18 20:46) Monitor-Rhythm Ecg Trace Only (05/13/18 20:46) Saline Lock/Iv-Start (05/13/18 20:46) Chest Pa/Lat (2 View) (05/13/18 20:46) Drug Screen Stat (Urine) (05/13/18 20:52) Hcg,Qualitative Urine (05/13/18 20:52) Ua Culture If Indicated (05/13/18 20:52) (ONELIA BLACKBURN) Vital Signs/I&O 05/13/18 20:28 Temp 97.5 Pulse 91 Resp 20 B/P (MAP) 125/82 (96) Pulse Ox 94 O2 Delivery Room Air (ONELIA BLACKBURN) Progress Progress Note : Time: 20:53 Progress Note The patient's pain is worse with inspiration and deep breathing, the patient is negative for Homans sign, she recently quit smoking, she does not take control, she is not recently taking any long trips, she does not have any calf swelling, and her PERC score is 0, putting her at very low risk for pulmonary embolism. (CHARLIE DE SOUZA STUDENT) Progress Note : Time: 21:18 Progress Note I saw and examined and heard history alongside Charlie, nurse practitioner. I agree with his findings, examination and plan. We we'll obtain urine drug screen , urine , basic labs as well as an EKG which will show if there is any dysrhythmias, myocarditis etc. She doesn't have any risk factors such as smoking , oral contraceptives or recent surgeries or periods of incapacitation nor does she have any symptoms of a pulmonary embolism. She does have a history of anxiety is being treated outpatient with proximal obtained for the past year. She is not having reproducible chest pain by chest wall palpitation however she does have a pleuritic sounding chest wall pain. Reasonable conclude that she might have a bronchitis based on her history and some labs, chest x-ray and EKG will support this. She does endorse a family history of her grandfather and father having a heart attack in his 30s with sudden cardiac which puts her at a slight increased risk for coronary disease but probably not at age 27 without decent set of risk factors. ED ACS score: Negative 2 points. Low risk by the EDACS Score. If the patient also has: (1) EKG without new ischemic changes and (2) negative initial and 2- hour troponins, then this patient is safe for discharge to early outpatient follow-up investigation (or proceed to earlier inpatient testing). If EKG with ischemic changes or positive troponin, they are not low risk and require normal risk stratification. (ONELIA BLACKBURN) Initial ECG Impression Date: May 13, 2018 Initial ECG Impression Time: 20:38 Initial ECG Rate: 82 Initial ECG Rhythm: Normal Sinus Initial ECG Intervals: Normal Initial ECG Impression: Normal Comment There is no evidence of dysrhythmias, pericarditis or ST changes. (CHARLIE DE SOUZA STUDENT) Diagnostic Imaging Diagonstic Imaging: Xray Plain Films/CT/US/NM/MRI: chest Comments No pulmonary markings suggest pneumonitis/pneumonia. No effusion, or pulmonary congestion. There is a normal heart shadow with no widened mediastinum. Nothing to suggest a hypertrophic cardiomyopathy. Reviewed: Reviewed by Me (ONELIA BLACKBURN) Departure Impression Primary Impression: Pleuritic chest pain Disposition: 01 HOME, SELF-CARE Condition: Stable/Unchanged Departure-Patient Inst. Decision time for Depature: 21:45 (CHARLIE DE SOUZA STUDENT) Referrals: RONAK GAMBOA DO (PCP) Primary Care Physician ARMANDO ROBERTSON (Family) Primary Care Physician Patient Instructions: Chest Pain That Is Not Caused by the Heart (DC), Pleuritic Chest Pain (DC) Add. Discharge Instructions: Take medications as directed by [facility]. You may use ibuprofen and acetaminophen as needed for pain relief. Drink plenty of fluids, return back to the emergency room for any worsening pain, shortness of breath, fever, nausea, vomiting or any other concerns as needed. Follow-up with your doctor within 1 week, call tomorrow morning for appointment time. All discharge instructions reviewed with patient and/or family. Voiced understanding. CHARLIE DE SOUZA STUDENT May 13, 2018 20:41 ONELIA BLACKBURN May 13, 2018 21:21
[2018-05-13 20:52] LABS: BASOPHILS % (AUTO) 0 % (0-10); EOSINOPHILS # (AUTO) 0.1 10^3/uL (0.0-0.3); EOSINOPHILS % (AUTO) 1 % (0-10); HEMATOCRIT 38 % (35-52); HEMOGLOBIN 12.6 G/DL (11.5-16.0); LYMPHOCYTES # (AUTO) 3.4 X 10^3 (1.0-4.0); LYMPHOCYTES % (AUTO) 26 % (12-44); MEAN CORPUSCULAR HEMOGLOBIN 30 PG (25-34); MEAN CORPUSCULAR HGB CONC 33 G/DL (32-36); MEAN CORPUSCULAR VOLUME 91 FL (80-99); MEAN PLATELET VOLUME 10.5 FL (7.4-10.4); MONOCYTES # (AUTO) 1.1 X 10^3 (0.0-1.0); MONOCYTES % (AUTO) 8 % (0-12); NEUTROPHILS # (AUTO) 8.6 X 10^3 (1.8-7.8); NEUTROPHILS % (AUTO) 65 % (42-75); PLATELET COUNT 364 10^3/uL (130-400); RED BLOOD COUNT 4.21 10^6/uL (4.35-5.85); RED CELL DISTRIBUTION WIDTH 13.8 % (10.0-14.5); WHITE BLOOD COUNT 13.1 10^3/uL (4.3-11.0)
[2018-05-13 21:00] LABS: BILIRUBIN,URINE NEGATIVE (NEGATIVE); CLARITY,URINE CLEAR; COLOR,URINE YELLOW; GLUCOSE, URINE (UA) NEGATIVE (NEGATIVE); KETONES,URINE NEGATIVE (NEGATIVE); LEUKOCYTE ESTERASE ,URINE 1+ (NEGATIVE); NITRITE,URINE NEGATIVE (NEGATIVE); PH,URINE 5 (5-9); PROTEIN,URINE NEGATIVE (NEGATIVE); UROBILINOGEN,URINE NORMAL (NORMAL)
[2018-05-13 21:06] LABS: HCG,QUALITATIVE URINE NEGATIVE (NEGATIVE)
[2018-05-13 21:08] LABS: BACTERIA,URINE TRACE /HPF; WBC,URINE 0-2 /HPF
[2018-05-13 21:10] LABS: ALANINE AMINOTRANSFERASE 14 U/L (0-55); ALKALINE PHOSPHATASE 90 U/L (40-136); BILIRUBIN,TOTAL 0.3 MG/DL (0.1-1.0); BUN/CREATININE RATIO 14; CARBON DIOXIDE 23 MMOL/L (21-32); CHLORIDE 109 MMOL/L (98-107); GFR ESTIMATED > 60; GLUCOSE 94 MG/DL (70-105); POTASSIUM 4.1 MMOL/L (3.6-5.0); SODIUM 140 MMOL/L (135-145); TOTAL PROTEIN 7.5 GM/DL (6.4-8.2)
[2018-05-13 21:13] LABS: AMPHETAMINE SCREEN, URINE NEGATIVE (NEGATIVE); BARBITURATE SCREEN URINE NEGATIVE (NEGATIVE); BENZODIAZEPINES SCREEN URINE NEGATIVE (NEGATIVE); CANNABINOID SCREEN, URINE NEGATIVE (NEGATIVE); COCAINE SCREEN URINE NEGATIVE (NEGATIVE); METHADONE STAT NEGATIVE (NEGATIVE); METHAMPHETAMINE SCREEN URINE S NEGATIVE (NEGATIVE); OPIATE SCREEN URINE NEGATIVE (NEGATIVE); OXYCODONE STAT NEGATIVE (NEGATIVE); PROPOXYPHENE STAT NEGATIVE (NEGATIVE); TRICYCLIC ANTIDEPRESSANTS SCRE NEGATIVE (NEGATIVE)
--- NOTE | 2018-05-13 21:43 | Diagnostic Imaging Report ---
INDICATION: Chest pain PA and lateral views of the chest are obtained. COMPARISON: No previous study is available for comparison at this time. FINDINGS: Heart size and pulmonary vasculature are within normal limits, and the lungs are clear, bilaterally. IMPRESSION: Unremarkable chest. Dictated by: Dictated on workstation # [id number]
[2018-05-13 21:55] VITALS: BP 125/82
== END 2018-05-13 21:55 | disposition home or self-care (01) ==
LOC: EDUNIT# 20:23 → ER 20:26
DX: R07.1 Chest pain on breathing (principal); J45.909 Unspecified asthma, uncomplicated; K21.9 Gastro-esophageal reflux disease without esophagitis; F32.9 Major depressive disorder, single episode, unspecified; Z88.0 Allergy status to penicillin
CPT/HCPCS: 36415; 71046; 80053; 80306; 81000; 84703; 85025; 93005; 93041

== ENCOUNTER → 2018-06-08 | Outpatient (CLI) | payer MEDICAID ==
--- NOTE | 2018-06-08 14:07 | Diagnostic Imaging Report ---
PROCEDURE: US Non-OB pelvis comp/trans. TECHNIQUE: Multiple realtime grayscale images were obtained of the pelvis in various projections endovaginally. Transabdominal imaging was also performed. INDICATION: Painful menstrual cycles. FINDINGS: The uterus measures 7.7 x 4.2 x 4.8 cm. No myometrial mass is seen. The endometrium is 16 mm in thickness. The right ovary measures 3.6 x 3.2 x 2.3 cm, and the left ovary measures 3.9 x 3.0 x 2.4 cm. Both ovaries contain small follicles. There is blood flow bilaterally. There appears to be an involuting cyst in the left ovary, approximately 17 mm in size. No free fluid is seen. IMPRESSION: Small involuting left ovarian cyst. The study is otherwise unremarkable. Dictated by: Dictated on workstation # [id number]
== END ==
LOC: RAD 13:00
PROVIDERS: ATTEND Obstetrics & Gynecology
DX: N83.202 Unspecified ovarian cyst, left side (principal)
CPT/HCPCS: 76830; 76856

== ENCOUNTER → 2018-11-28 | Outpatient (CLI) | payer MEDICAID ==
[~2018-11-28] MED LIST changes: +IOHEXOL 350 MG/ML 100 ML (OMNIPAQUE 350) VIAL IV ONE; +NS 100 ML (IVPB) BAG IV ONE; +RECEIVED CONTRAST (Hold Metformin) IV SCH
--- NOTE | 2018-11-28 16:24 | Diagnostic Imaging Report ---
PROCEDURE: CT abdomen and pelvis without contrast. TECHNIQUE: Multiple contiguous axial images were obtained through the abdomen and pelvis without the use of intravenous contrast. INDICATION: Nausea with one-day history of right lower quadrant pain. No priors. FINDINGS: The air-containing appendix is well-visualized and normal. There are no opaque kidney stones and there is no hydronephrosis. The gallbladder is surgically absent. The liver, bile ducts, spleen, adrenals and pancreas are all unremarkable. There is no ileus or bowel obstruction. The colonic fecal load is unremarkable. There is a left adnexal cyst showing no obvious complexity, presumed ovarian, likely a dominant follicle at 2.4 cm. The uterus and right adnexa are normal. There is no abdominal pelvic free fluid. No abscess hematoma or other fluid collection. No focal inflammatory process. No pneumatosis or free gas. The osseous structures and the lung bases are nonacute. IMPRESSION: Normal appendix. Unobstructed urinary tracts. No acute appearing abnormality. Dictated by: Dictated on workstation # [id number]
== END ==
LOC: RAD 13:05
PROVIDERS: ATTEND Nurse Practitioner Family
DX: R10.31 Right lower quadrant pain (principal); R11.0 Nausea; Z90.49 Acquired absence of other specified parts of digestive tract
CPT/HCPCS: 74176

== ENCOUNTER 2019-07-28 20:59 | Emergency (ER) | payer MEDICAID, OTHER ==
[~2019-07-28] VITALS: Ht 172.7 cm; Wt 117.9 kg
[~2019-07-28 20:59] MED LIST changes: -IOHEXOL 350 MG/ML 100 ML (OMNIPAQUE 350) VIAL IV ONE; -NS 100 ML (IVPB) BAG IV ONE; -OMEP20CA12; +OMEP20CA13; -RECEIVED CONTRAST (Hold Metformin) IV SCH
--- NOTE | 2019-07-28 21:24 | ED Lower Extremity ---
General Chief Complaint: Lower Extremity Stated Complaint: SWOLLEN RT FOOT Source: patient Exam Limitations: no limitations History of Present Illness Date Seen by Provider: Jul 28, 2019 Time Seen by Provider: 21:22 Initial Comments Pain and swelling to the dorsal right foot after dropping an iron skillet on it earlier this evening at work at [employer]. Onset: this evening Severity: moderate Pain/Injury Location: right foot Method of Injury: direct blow Modifying Factors: Worse With Movement Allergies and Home Medications Allergies Coded Allergies: latex (Verified Allergy, Unknown, 03/02/17) morphine (Verified Allergy, Unknown, 07/28/19) Uncoded Allergies: PCN (Allergy, Unknown, 05/13/18) Home Medications Cetirizine HCl 10 Mg Tablet, 10 MG PO DAILY, (Reported) Docusate Sodium 100 Mg Capsule, 100 MG PO BID Prescribed by: CHRISTIANO COMBS on 03/09/17 1149 Hydrocodone Bit/Acetaminophen 1 Each Tablet, 1 EA PO Q4-6HR PRN for pain Prescribed by: CHRISTIANO COMBS on 03/09/17 1149 Levothyroxine Sodium 100 Mcg Tablet, 100 MCG PO DAILY, (Reported) Omeprazole 40 Mg Capsule.dr, 40 MG PO DAILY, (Reported) Patient Home Medication List Home Medication List Reviewed: Yes Review of Systems Constitutional: see HPI EENTM: see HPI Respiratory: no symptoms reported Cardiovascular: no symptoms reported Genitourinary: no symptoms reported Musculoskeletal: see HPI Skin: no symptoms reported Psychiatric/Neurological: No Symptoms Reported Past Ypnmdjq-Vnvqlm-Ysueof Hx Patient Social History Type Used: Cigarettes Recent Foreign Travel: Yes Contact w/Someone Who Travel: Yes Recent Hopitalizations: No Immunizations Up To Date Tetanus Booster (TDap): Unknown Date of Influenza Vaccine: Sep 05, 2016 Seasonal Allergies Seasonal Allergies: Yes Past Medical History Surgeries: Yes (BREAST BIOPSY--BENIGN) Breast Respiratory: Yes (LAST USED INHALER IN OCT 2016) Asthma Cardiac: No Neurological: No Reproductive Disorders: No Female Reproductive Disorders: Denies Sexually Transmitted Disease: No HIV/AIDS: No Gastrointestinal: Yes Gastroesophageal Reflux Musculoskeletal: No Endocrine: Yes Loss of Vision: Bilateral Hearing Impairment: Denies Cancer: No Psychosocial: Yes Anxiety, Depression Integumentary: No Blood Disorders: No Adverse Reaction/Blood Tranf: No Family Medical History No Pertinent Family Hx Physical Exam Vital Signs Capillary Refill : Height, Weight, BMI Height: 5'8.00" Weight: 260lbs. 0.0oz. 117.894182hh; 35.0 BMI Method:Stated General Appearance: WD/WN, no apparent distress Neck: non-tender, full range of motion Respiratory: no respiratory distress, no accessory muscle use Hips: bilateral hip non-tender, bilateral hip normal inspection, bilateral hip normal range of motion Legs: bilateral leg non-tender, bilateral leg normal inspection, bilateral leg normal range of motion Knees: bilateral knee non-tender, bilateral knee normal inspection, bilateral knee normal range of motion Ankles: bilateral ankle non-tender, bilateral ankle normal inspection, bila teral ankle normal range of motion Feet: right foot pain, right foot soft tissue tenderness; bilateral foot other (no appreciable swelling or deformity, ecchymosis over the distal first metatarsal smaller than dime-sized) Neurologic/Psychiatric: alert, normal mood/affect, oriented x 3 Skin: normal color, warm/dry Progress/Results/Core Measures Results/Orders My Orders Orders - JTE RESENDEZ APRN Foot, Right, 3 View (07/28/19 21:14) Departure Impression Primary Impression: Contusion of foot Qualified Codes: S90.31XA - Contusion of right foot, initial encounter Disposition: 01 HOME, SELF-CARE Condition: Stable Departure-Patient Inst. Decision time for Depature: 21:24 Referrals: [facility] (PCP) Primary Care Physician ARMANDO ROBERTSON (Family) Primary Care Physician Patient Instructions: Contusion (DC) Add. Discharge Instructions: Ice pack to the area, Tylenol and ibuprofen for pain control. All discharge instructions reviewed with patient and/or family. Voiced understanding. JET RESENDEZ APRN Jul 28, 2019 21:24
--- NOTE | 2019-07-28 21:28 | Diagnostic Imaging Report ---
INDICATION: Injury to the right foot. EXAMINATION: Three views of the right foot were obtained. FINDINGS: No fracture, dislocation or other acute bony abnormality. There is mild swelling. IMPRESSION: Swelling. No fracture. Dictated by: Dictated on workstation # [id number]
[2019-07-28 21:50] VITALS: BP 120/85
== END 2019-07-28 21:51 | disposition home or self-care (01) ==
LOC: EDUNIT# 20:59 → ER 21:03
DX: S90.31XA Contusion of right foot, initial encounter (principal); J45.909 Unspecified asthma, uncomplicated; K21.9 Gastro-esophageal reflux disease without esophagitis; F41.9 Anxiety disorder, unspecified; F32.9 Major depressive disorder, single episode, unspecified; Z91.040 Latex allergy status; Z88.5 Allergy status to narcotic agent; Z88.0 Allergy status to penicillin; W20.8XXA Other cause of strike by thrown, projected or falling object, initial encounter
CPT/HCPCS: 73630; 99282

== ENCOUNTER → 2021-08-12 | Outpatient (CLI) | payer OTHER ==
[~2021-08-12] VITALS: Ht 172.7 cm; Wt 123.9 kg
[~2021-08-12] MED LIST changes: -CETI10TA20 PO; +CETI10TA49 PO; +MULT-974 PO; -OMEP20CA13; +OMEP20CA18; -OMEP40CA36 PO; +OMEP40CA6 PO; +PARO20TA5 PO; -TRAM50TA2; +TRM50T
== END | disposition home or self-care (01) ==
LOC: PREOP 07:07
PROVIDERS: ATTEND Surgery
DX: Z01.818 Encounter for other preprocedural examination (principal)

== ENCOUNTER 2021-08-24 10:35 | Day surgery (SDC) | payer OTHER ==
[~2021-08-24] VITALS: Ht 172.7 cm; Wt 123.9 kg
[2021-08-24] MEDS ORDERED: LACTATED RINGERS 1,000 ML IV STA (10:47)
[2021-08-24 10:55] VITALS: BP 116/84
--- NOTE | 2021-08-24 11:06 | Progress Note-Pre Operative ---
Pre-Operative Progress Note H&P Reviewed The H&P was reviewed, patient examined and no changes noted. Date Seen by Provider: Aug 24, 2021 Time Seen by Provider: 11:05 Date H&P Reviewed: Aug 24, 2021 Time H&P Reviewed: 11:05 Pre-Operative Diagnosis: blood in stool, family history colon ca CARRIE CAMPBELL DO Aug 24, 2021 11:06
[2021-08-24] MEDS ORDERED: MIDAZOLAM 2 MG/2 ML (VERSED) VIAL ONE (11:35)
[2021-08-24] MEDS ORDERED: PROPOFOL INJECTION 50 ML IV ONE ×2 (11:35→11:47)
--- NOTE | 2021-08-24 12:01 | Progress Note-Post Operative ---
Post-Operative Progess Note Surgeon (s)/Breaker Off (s) Surgeon CARRIE CAMPBELL DO Breaker Off: na Pre-Operative Diagnosis blood in stool, family history colon ca Post-Operative Diagnosis internal hemorrhoids Procedure & Operative Findings Date of Procedure 08/24/21 Procedure Performed/Findings colonoscopy Anesthesia Type per director of safety and security Estimated Blood Loss Estimated blood loss (mL): none Specimens/Packing Specimens Removed na CARRIE CAMPBELL DO Aug 24, 2021 12:01
[2021-08-24 12:02] VITALS: BP 109/59
--- NOTE | 2021-08-24 12:03 | Discharge Inst-Simple/Standard ---
Discharge Inst-Standard Patient Instructions/Follow Up Plan of Care/Instructions/FU: repeat colonoscopy in 5 years due to family hx colon cancer. Any bleeding before then be seen at that time. Activity as Tolerated: Yes Discharge Diet: Regular Diet CARRIE CAMPBELL DO Aug 24, 2021 12:03
[2021-08-24 12:07] VITALS: BP 113/70
[2021-08-24 12:10] VITALS: BP 113/70
[2021-08-24 12:40] VITALS: BP 109/67
[2021-08-24 12:52] VITALS: BP 109/67
--- NOTE | 2021-08-24 14:33 | Anesthesia-General Post-Op ---
MAC Patient Condition Mental Status/LOC: Same as Preop Cardiovascular: Satisfactory Nausea/Vomiting: Absent Respiratory: Satisfactory Pain: Controlled Complications: Absent Post Op Complications Complications None Follow Up Care/Instructions Patient Instructions None needed. Anesthesiology Discharge Order Discharge Order Patient is doing well, no complaints, stable vital signs, no apparent adverse anesthesia problems. No complications reported per nursing. RA LA CRNA Aug 24, 2021 14:33
--- NOTE | 2021-08-24 19:15 | OPERATIVE REPORT ---
DATE OF SERVICE: 08/24/2021 PREOPERATIVE DIAGNOSIS: Blood in the stool, family history of colon cancer. POSTOPERATIVE DIAGNOSIS: Internal hemorrhoids. PROCEDURE PERFORMED: Colonoscopy. SURGEON: Carrie Guerrero DO. ANESTHESIA: Per ASSET MANAGER. ESTIMATED BLOOD LOSS: None. COMPLICATIONS: None. INDICATIONS: The patient is a 30-year-old female needing evaluation for colonoscopy due to the family history of colon cancer and blood in stool. She understands risks and benefits of the procedure and wished to proceed. Consent was signed in the chart. DESCRIPTION OF PROCEDURE: The patient was taken to the endoscopy suite and placed in a left lateral recumbent position. A timeout was performed. Digital rectal exam was performed. No palpable polyps, masses or ulcerations were present. Some internal hemorrhoids. Scope was inserted in the rectum, advanced all the way to cecum with minimal difficulty. Prep was adequate with irrigation and suction. Scope was then slowly retracted back. No polyps, masses or ulcerations within the cecum, ascending, transverse, descending and sigmoid colon. Once in the rectum, scope was retroflexed noting some internal hemorrhoids. Scope was returned to its normal position, slowly withdrawn until completely removed. The patient tolerated the procedure well without any complications. She was taken to recovery room in stable condition. RECOMMENDATIONS: The patient will need repeat colonoscopy in five years due to family history of colon cancer. Any issues before that will be seen at that time for reevaluation. CC: [facility] - requested, unable to deliver. Job ID: [id number] DocumentID: [id number] Dictated Date: 08/24/2021 12:05:24 Incendiary Powder Mixer Date: 08/24/2021 19:15:06 Dictated By: CARRIE GUERRERO DO
== END 2021-08-24 12:52 | disposition home or self-care (01) ==
LOC: ENDO 10:35
PROVIDERS: ATTEND Surgery
DX: K64.8 Other hemorrhoids (principal); J45.909 Unspecified asthma, uncomplicated; E66.9 Obesity, unspecified; Z79.890 Hormone replacement therapy; Z79.891 Long term (current) use of opiate analgesic; Z80.0 Family history of malignant neoplasm of digestive organs; Z91.040 Latex allergy status; Z98.890 Other specified postprocedural states; Z68.41 Body mass index [BMI] 40.0-44.9, adult; Z87.891 Personal history of nicotine dependence; Z90.49 Acquired absence of other specified parts of digestive tract
CPT/HCPCS: 84703

== ENCOUNTER 2022-08-24 05:14 | Emergency (ER) | payer BC ==
[~2022-08-24] VITALS: Ht 175.2 cm; Wt 115.3 kg
[2022-08-24] MEDS ORDERED: PROMETHAZINE INJ 25 MG/ML (PHENERGAN) AMP IVP ONE (05:30)
[2022-08-24] MEDS ORDERED: LACTATED RINGERS 1,000 ML IV ONE (05:30)
[2022-08-24] MEDS ORDERED: KETOROLAC 30 MG/ML VIAL IVP ONE (05:30)
--- NOTE | 2022-08-24 05:38 | ED Headache ---
General Stated Complaint: DIZZY, IN& OUT OF CONSCIOUSNESS Source: patient, family (mother in law) Exam Limitations: no limitations (OENLIA FLORES) History of Present Illness Date Seen by Provider: Aug 24, 2022 Time Seen by Provider: 05:22 Initial Comments Patient to the ER by private conveyance with her mother and on chief complaint that she was driving to work at [employer] when she started having a headache disorientation and blurry vision. She had a history of migraines. She says she does not remember but apparently she called her ydoqme-ur-mru to come pick her up and someone drove her car home. Her bqcaqg-wg-agp states she was sitting on the side of the road. She denies any car wreck or fall. She does not recall if she is had problems with her vision related to migraines in the past. She rates it as a global, 4 out of 10, throbbing headache. She is not having any nausea fevers chills cough shortness of air or chest pain. She does have a history of hypothyroidism on Synthroid and a PPI. She is to follow-up with Victor Manuel Almazan at [facility]. She is unaware of her last menstrual period. She is not on control nor has she had her tubes tied nor hysterectomy. (ONELIA FLORES) Allergies and Home Medications Allergies Coded Allergies: latex (Verified Allergy, Unknown, 03/02/17) morphine (Verified Allergy, Unknown, 07/28/19) Uncoded Allergies: PCN (Allergy, Unknown, 05/13/18) Patient Home Medication List Home Medication List Reviewed: Yes (ONELIA FLORES) Cetirizine HCl (Zyrtec) 10 Mg Tablet, 10 MG PO DAILY, (Reported) Entered as Reported by: TAMMIE MCNULTY on 03/02/17 1005 Levothyroxine Sodium (Levothyroxine Sodium) 100 Mcg Tablet, 100 MCG PO DAILY, (Reported) Entered as Reported by: TAMMIE MCNULTY on 03/02/17 1005 Multivitamin (Multi-Vitamin Daily) 1 Each Tablet, 1 EACH PO DAILY, (Reported) Entered as Reported by: AMY POON on 08/16/21 1255 Omeprazole (Omeprazole) 40 Mg Capsule.dr, 40 MG PO DAILY, (Reported) Entered as Reported by: TAMMIE MCNULTY on 03/02/17 1005 Paroxetine HCl (Paroxetine HCl) 20 Mg Tablet, 20 MG PO DAILY, (Reported) Entered as Reported by: AMY POON on 08/16/21 1255 Review of Systems Review of Systems Constitutional: see HPI; No chills, No diaphoresis, No fever, No malaise Eyes: See HPI; Denies Blindness; Blurred Vision; Denies Drainage, Denies Pain, Denies Photophobia Ears, Nose, Mouth, Throat: denies ear pain, denies nose pain Respiratory: No cough, No short of breath Cardiovascular: No chest pain, No edema Gastrointestinal: No abdominal pain, No constipation, No diarrhea, No nausea, No vomiting Genitourinary: No discharge, No dysuria Musculoskeletal: No back pain, No joint pain (ONELIA FLORES) All Other Systems Reviewed Negative Unless Noted: Yes (ONELIA FLORES) Past Rwihzvj-Bwbzbp-Tcbird Hx Patient Social History Tobacco Use?: Yes Tobacco type used: Cigarettes Use of E-Cig and/or Vaping dev: No Substance use?: No (ONELIA FLORES) Immunizations Up To Date Tetanus Booster (TDap): Unknown First/Initial COVID19 Vaccinat: YES Second COVID19 Vaccination Jam: YES (ONELIA FLORES) Seasonal Allergies Seasonal Allergies: Yes (ONELIA FLORES) Past Medical History Surgeries: Yes (BREAST BIOPSY--BENIGN) Breast, Gallbladder Respiratory: Yes (LAST USED INHALER IN OCT 2016) Asthma Cardiac: No Neurological: No Reproductive Disorders: No Female Reproductive Disorders: Denies Sexually Transmitted Disease: No HIV/AIDS: No Gastrointestinal: Yes Gastroesophageal Reflux Musculoskeletal: No Endocrine: Yes ("NON WORKING THYROID") HEENT: No Loss of Vision: Bilateral Hearing Impairment: Denies Cancer: No Psychosocial: Yes Anxiety, Depression Integumentary: No Blood Disorders: No Adverse Reaction/Blood Tranf: No (ONELIA FLORES) Family Medical History No Pertinent Family Hx (ONELIA FLORES) Physical Exam Vital Signs Vital Signs - First Documented 08/24/22 05:24 Temp 36.3 Pulse 81 Resp 16 B/P (MAP) 131/82 (98) Pulse Ox 100 O2 Delivery Room Air (IHSAN FREEMAN MD) Vital Signs Capillary Refill : (ONELIA FLORES) Height, Weight, BMI Height: 5'8.00" Weight: 260lbs. 0.0oz. [id number]; 41.54 BMI Method:Stated General Appearance: WD/WN, mild distress, obese HEENT: PERRL/EOMI (3mm sym), normal ENT inspection, TMs normal; No pharynx normal (Mildly dry oral mucosa) Neck: non-tender, full range of motion, supple, normal inspection Cardiovascular: normal peripheral pulses, regular rate, rhythm Respiratory: lungs clear, normal breath sounds, no respiratory distress, no accessory muscle use Gastrointestinal: non tender, soft Extremities: normal range of motion, non-tender Psychiatric: alert, oriented x 3, other (Mildly somnolent) Crainal Nerves: normal hearing, normal speech, PERRL, other (Patient states she sees multiples of fingers, 5 when 3 are held up and 3 when 1 is held up.) Coordination/Gait: other (Able to transfer from wheelchair to bed on her own.) Motor/Sensory: no motor deficit, no sensory deficit Skin: normal color, warm/dry (ONELIA FLORES) Progress/Results/Core Measures Results/Orders Lab Results Laboratory Tests Test 08/24/22 05:30 08/24/22 05:35 08/24/22 05:45 08/24/22 06:49 Range/Units Glucometer 123 H 70-110 MG/DL White Blood Count 11.5 H 4.3-11.0 10^3/uL Red Blood Count 4.46 3.80-5.11 10^6/uL Hemoglobin 13.5 11.5-16.0 g/dL Hematocrit 42 35-52 % Mean Corpuscular Volume 94 80-99 fL Mean Corpuscular Hemoglobin 30 25-34 pg Mean Corpuscular Hemoglobin Concent 32 32-36 g/dL Red Cell Distribution Width 13.7 10.0-14.5 % Platelet Count 365 130-400 10^3/uL Mean Platelet Volume 10.6 9.0-12.2 fL Immature Granulocyte % (Auto) 1 % Neutrophils (%) (Auto) 67 42-75 % Lymphocytes (%) (Auto) 24 12-44 % Monocytes (%) (Auto) 6 0-12 % Eosinophils (%) (Auto) 3 0-10 % Basophils (%) (Auto) 0 0-10 % Neutrophils # (Auto) 7.7 1.8-7.8 10^3/uL Lymphocytes # (Auto) 2.7 1.0-4.0 10^3/uL Monocytes # (Auto) 0.7 0.0-1.0 10^3/uL Eosinophils # (Auto) 0.3 0.0-0.3 10^3/uL Basophils # (Auto) 0.0 0.0-0.1 10^3/uL Immature Granulocyte # (Auto) 0.1 0.0-0.1 10^3/uL Sodium Level 140 135-145 MMOL/L Potassium Level 4.4 3.6-5.0 MMOL/L Chloride Level 105 98-107 MMOL/L Carbon Dioxide Level 21 21-32 MMOL/L Anion Gap 14 5-14 MMOL/L Blood Urea Nitrogen 9 7-18 MG/DL Creatinine 0.70 0.60-1.30 MG/DL Estimat Glomerular Filtration Rate 120 BUN/Creatinine Ratio 13 Glucose Level 119 H 70-105 MG/DL Calcium Level 9.0 8.5-10.1 MG/DL Corrected Calcium 9.1 8.5-10.1 MG/DL Total Bilirubin 0.2 0.1-1.0 MG/DL Aspartate Amino Transf (AST/SGOT) 19 5-34 U/L Alanine Aminotransferase (ALT/SGPT) 21 0-55 U/L Alkaline Phosphatase 77 40-136 U/L C-Reactive Protein High Sensitivity 1.40 H 0.00-0.50 MG/DL Total Protein 7.5 6.4-8.2 GM/DL Albumin 3.9 3.2-4.5 GM/DL Thyroid Stimulating Hormone (TSH) 14.36 H 0.35-4.94 UIU/ML Free Thyroxine 0.67 L 0.70-1.48 NG/DL Serum Alcohol < 10 <10 MG/DL Urine Color YELLOW Urine Clarity CLEAR Urine pH 6.0 5-9 Urine Specific [place] 1.010 L 1.016-1.022 Urine Protein NEGATIVE NEGATIVE Urine Glucose (UA) NEGATIVE NEGATIVE Urine Ketones NEGATIVE NEGATIVE Urine Nitrite NEGATIVE NEGATIVE Urine Bilirubin NEGATIVE NEGATIVE Urine Urobilinogen 0.2 < = 1.0 MG/DL Urine Leukocyte Esterase NEGATIVE NEGATIVE Urine RBC (Auto) NEGATIVE NEGATIVE Urine RBC NONE /HPF Urine WBC 0-2 /HPF Urine Squamous Epithelial Cells 0-2 /HPF Urine Crystals NONE /LPF Urine Bacteria NEGATIVE /HPF Urine Casts PRESENT /LPF Urine Hyaline Casts RARE /LPF Urine Mucus NEGATIVE /LPF Urine Culture Indicated NO Urine Opiates Screen NEGATIVE NEGATIVE Urine Oxycodone Screen NEGATIVE NEGATIVE Urine Methadone Screen NEGATIVE NEGATIVE Urine Propoxyphene Screen NEGATIVE NEGATIVE Urine Barbiturates Screen NEGATIVE NEGATIVE Ur Tricyclic Antidepressants Screen NEGATIVE NEGATIVE Urine Phencyclidine Screen NEGATIVE NEGATIVE Urine Amphetamines Screen NEGATIVE NEGATIVE Urine Methamphetamines Screen NEGATIVE NEGATIVE Urine Benzodiazepines Screen NEGATIVE NEGATIVE Urine Cocaine Screen NEGATIVE NEGATIVE Urine Cannabinoids Screen NEGATIVE NEGATIVE Influenza Type A (RT-PCR) Not Detected Not Detecte Influenza Type B (RT-PCR) Not Detected Not Detecte SARS-CoV-2 RNA (RT-PCR) Not Detected Not Detecte (IHSAN FREEMAN MD) My Orders Orders - IHSAN FREEMAN MD Thyroid Stimulating Hormone (08/24/22 06:10) Free T4 (Free Thyroxine) (08/24/22 06:10) Covid 19 Inhouse Test (08/24/22 06:46) Influenza A And B By Pcr (08/24/22 06:46) (IHSAN FREEMAN MD) Medications Given in ED Current Medications Medications Dose Ordered Sig/Ena Route Start Time Stop Time Status Last Admin Dose Admin Ketorolac Tromethamine 30 mg ONCE ONCE IVP 08/24/22 05:30 08/24/22 05:32 DC 08/24/22 05:45 30 MG Lactated Ringer's 1,000 ml @ 0 mls/hr Q0M ONCE IV 08/24/22 05:30 08/24/22 05:32 DC 08/24/22 05:44 999 MLS/HR Promethazine HCl 25 mg ONCE ONCE IVP 08/24/22 05:30 08/24/22 05:32 DC 08/24/22 05:44 25 MG (IHSAN FREEMAN MD) Vital Signs/I&O 08/24/22 05:24 Temp 36.3 Pulse 81 Resp 16 B/P (MAP) 131/82 (98) Pulse Ox 100 O2 Delivery Room Air (IHSAN FREEMAN MD) Progress Progress Note #1: Time: 05:36 Progress Note Altered mental status, not with any lateralizing neurologic deficits. Her blurred vision is causing her to inconsistently see multiples of fingers on examination. Neurologically she otherwise seems to be intact and is following commands. We will get a CT of the brain since she is having a headache with some confusion. We will check some labs, markers of inflammation, urine, bedside and toxicology alcohol and drug screen. This could be an atypical migraine presentation causing her blurry vision so we will treat her with Toradol, a liter of fluids and Phenergan to see if this improves her symptoms as it improves her headache. 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 Labs and urine are still pending so we have transferred care of the patient over to Dr. Wasserman. (ONELIA FLORES) Progress Note : Time: 08:05 Progress Note Care of this patient was assumed from Dr. Flores at shift change. Initial labs were grossly unremarkable. Thyroid labs were added, and she appears to have thyroid dysregulation despite stating compliance with her levothyroxine. I have recommended that she contact her prescriber to make adjustments to her dosing. She felt significantly improved after IV fluids and was able to ambulate without difficulty. (IHSAN RFEEMAN MD) Diagnostic Imaging Diagonstic Imaging: CT Plain Films/CT/US/NM/MRI: head Reviewed: Reviewed by Me (ONELIA FLORES) Transfer of Care Time: 06:13 Care transferred to: Dr. Wasserman (ONELIA FLORES) Departure Impression Primary Impression: Thyroid dysfunction Additional Impressions: Lightheadedness Acute headache Qualified Codes: R51.9 - Headache, unspecified Disposition: 01 HOME, SELF-CARE Condition: Improved Departure-Patient Inst. Decision time for Depature: 08:09 (IHSAN FREEMAN MD) Referrals: [facility] (PCP/Family) Primary Care Physician Patient Instructions: Headache, Adult ED, Hypothyroidism (Underactive Thyroid) Add. Discharge Instructions: Drink plenty of clear liquids to stay well-hydrated. Rest in a quiet, calm environment for the remainder of today. You may use ibuprofen up to 600 mg every 6 hours and/or Tylenol (acetaminophen) up to 1000 mg every 6 hours as needed for headache or other acute pain. Contact your prescribing provider to discuss your thyroid dysfunction and altering the dosage of your thyroid replacement. You appear to be undertreated at this time based on your labs. Return to care if you have worsening symptoms despite following these instructions. Work/School Note: Work Release Form Date Seen in the Emergency Department: Aug 24, 2022 Return to Work: Aug 25, 2022 Restrictions: No Restrictions Copy Copies To 1: [facility]/ONELIA DE LA TORRE Aug 24, 2022 05:38 IHSAN FREEMAN MD Aug 24, 2022 08:11
[2022-08-24 05:49] LABS: BASOPHILS % (AUTO) 0 % (0-10); EOSINOPHILS # (AUTO) 0.3 10^3/uL (0.0-0.3); EOSINOPHILS % (AUTO) 3 % (0-10); HEMATOCRIT 42 % (35-52); HEMOGLOBIN 13.5 g/dL (11.5-16.0); LYMPHOCYTES # (AUTO) 2.7 10^3/uL (1.0-4.0); LYMPHOCYTES % (AUTO) 24 % (12-44); MEAN CORPUSCULAR HEMOGLOBIN 30 pg (25-34); MEAN CORPUSCULAR HGB CONC 32 g/dL (32-36); MEAN CORPUSCULAR VOLUME 94 fL (80-99); MEAN PLATELET VOLUME 10.6 fL (9.0-12.2); MONOCYTES # (AUTO) 0.7 10^3/uL (0.0-1.0); MONOCYTES % (AUTO) 6 % (0-12); NEUTROPHILS # (AUTO) 7.7 10^3/uL (1.8-7.8); NEUTROPHILS % (AUTO) 67 % (42-75); PLATELET COUNT 365 10^3/uL (130-400); WHITE BLOOD COUNT 11.5 10^3/uL (4.3-11.0)
[2022-08-24 05:56] LABS: BILIRUBIN,URINE NEGATIVE (NEGATIVE); CLARITY,URINE CLEAR; COLOR,URINE YELLOW; GLUCOSE, URINE (UA) NEGATIVE (NEGATIVE); KETONES,URINE NEGATIVE (NEGATIVE); LEUKOCYTE ESTERASE ,URINE NEGATIVE (NEGATIVE); NITRITE,URINE NEGATIVE (NEGATIVE); PROTEIN,URINE NEGATIVE (NEGATIVE)
[2022-08-24 06:01] LABS: ALBUMIN 3.9 GM/DL (3.2-4.5); CHLORIDE 105 MMOL/L (98-107); POTASSIUM 4.4 MMOL/L (3.6-5.0); SODIUM 140 MMOL/L (135-145)
[2022-08-24 06:03] LABS: GLUCOSE 119 MG/DL (70-105); TOTAL PROTEIN 7.5 GM/DL (6.4-8.2)
[2022-08-24 06:04] LABS: CARBON DIOXIDE 21 MMOL/L (21-32)
[2022-08-24 06:05] LABS: BILIRUBIN,TOTAL 0.2 MG/DL (0.1-1.0)
[2022-08-24 06:07] LABS: BACTERIA,URINE NEGATIVE /HPF; HYALINE CASTS, URINE RARE /LPF; SQUAMOUS EPITHELIAL CELL,UR 0-2 /HPF; WBC,URINE 0-2 /HPF
[2022-08-24 06:07] LABS: ALKALINE PHOSPHATASE 77 U/L (40-136); GFR ESTIMATED 120
[2022-08-24 06:08] LABS: BUN/CREATININE RATIO 13
[2022-08-24 06:10] LABS: ALANINE AMINOTRANSFERASE 21 U/L (0-55)
[2022-08-24 06:13] LABS: AMPHETAMINE SCREEN, URINE NEGATIVE (NEGATIVE); BARBITURATE SCREEN URINE NEGATIVE (NEGATIVE); BENZODIAZEPINES SCREEN URINE NEGATIVE (NEGATIVE); CANNABINOID SCREEN, URINE NEGATIVE (NEGATIVE); COCAINE SCREEN URINE NEGATIVE (NEGATIVE); METHADONE STAT NEGATIVE (NEGATIVE); OPIATE SCREEN URINE NEGATIVE (NEGATIVE); OXYCODONE STAT NEGATIVE (NEGATIVE); PROPOXYPHENE STAT NEGATIVE (NEGATIVE); TRICYCLIC ANTIDEPRESSANTS SCRE NEGATIVE (NEGATIVE)
--- NOTE | 2022-08-24 06:16 | Diagnostic Imaging Report ---
PROCEDURE: CT head without contrast. TECHNIQUE: Multiple contiguous axial images were obtained through the brain without the use of intravenous contrast. Auto Exposure Controls were utilized during the CT exam to meet ALARA standards for radiation dose reduction. INDICATION: Acute onset of headache and dizziness. FINDINGS: The ventricles are normal in size, shape and position. There are no masses or hemorrhages. There are no extra-axial fluid collections. IMPRESSION: Negative CT head. Dictated by: Dictated on workstation # [id number]
[2022-08-24 07:17] LABS: FREE T4 (FREE THYROXINE) 0.67 NG/DL (0.70-1.48)
[2022-08-24 08:18] VITALS: BP 127/82
== END 2022-08-24 08:18 | disposition home or self-care (01) ==
LOC: EDUNIT# 05:14 → ER 05:17
DX: E07.9 Disorder of thyroid, unspecified (principal); R42 Dizziness and giddiness; R51.9 Headache, unspecified; E03.9 Hypothyroidism, unspecified; E66.9 Obesity, unspecified; F17.210 Nicotine dependence, cigarettes, uncomplicated; Z91.040 Latex allergy status; Z68.41 Body mass index [BMI] 40.0-44.9, adult; Z20.822 Contact with and (suspected) exposure to COVID-19; Z28.310 Unvaccinated for COVID-19; Z79.890 Hormone replacement therapy
CPT/HCPCS: 70450; 80053; 80306; 81000; 82947; 84439; 84443; 84703; 85025; 86141; 87636; G0480; 36415; 80320

== ENCOUNTER 2023-05-03 13:10 | Emergency (ER) | payer SELFPAY ==
[~2023-05-03] VITALS: Ht 172.7 cm; Wt 135.2 kg
[~2023-05-03 13:10] MED LIST changes: +PARO-124 PO; -PARO-49 PO
--- NOTE | 2023-05-03 13:18 | ED Lower Extremity ---
General Stated Complaint: RT ANKLE Source: patient Exam Limitations: no limitations History of Present Illness Date Seen by Provider: May 03, 2023 Time Seen by Provider: 13:12 Initial Comments Patient is a 32-year-old female who presents to the emergency room with a chief complaint of right ankle and right lower leg pain after a trip and fall injury and a twisting of her right ankle. Denies any other complaints of pain or injury. Received 50 mcg of fentanyl prior to arrival. Onset: just prior to arrival Pain/Injury Location: right leg, right ankle Method of Injury: fell, twisted Modifying Factors: Improves With Immobilization; Worse With Jarring, Worse With Movement Allergies and Home Medications Allergies Coded Allergies: latex (Verified Allergy, Unknown, 03/02/17) morphine (Verified Allergy, Unknown, 07/28/19) Uncoded Allergies: PCN (Allergy, Unknown, 05/13/18) Patient Home Medication List Home Medication List Reviewed: Yes Cetirizine HCl (Zyrtec) 10 Mg Tablet, 10 MG PO DAILY, (Reported) Entered as Reported by: TAMMIE MCNULTY on 03/02/17 1005 Levothyroxine Sodium (Levothyroxine Sodium) 100 Mcg Tablet, 100 MCG PO DAILY, (Reported) Entered as Reported by: TAMMIE MCNULTY on 03/02/17 1005 Multivitamin (Multi-Vitamin Daily) 1 Each Tablet, 1 EACH PO DAILY, (Reported) Entered as Reported by: AMY POON on 08/16/21 1255 Omeprazole (Omeprazole) 40 Mg Capsule.dr, 40 MG PO DAILY, (Reported) Entered as Reported by: TAMMIE MCNULTY on 03/02/17 1005 Paroxetine HCl (Paroxetine HCl) 20 Mg Tablet, 20 MG PO DAILY, (Reported) Entered as Reported by: AMY POON on 08/16/21 1255 Review of Systems Constitutional: see HPI Respiratory: no symptoms reported Cardiovascular: no symptoms reported Gastrointestinal: no symptoms reported LMP: Apr 28, 2023 Musculoskeletal: joint pain (Right ankle), other (Right leg pain) Skin: no symptoms reported Past Zaolgsj-Momxxy-Appixn Hx Immunizations Up To Date Tetanus Booster (TDap): Unknown First/Initial COVID19 Vaccinat: NO Second COVID19 Vaccination Jam: NO Third COVID19 Vaccination Date: NO Seasonal Allergies Seasonal Allergies: Yes Past Medical History Surgeries: Yes (BREAST BIOPSY--BENIGN) Breast, Gallbladder Respiratory: Yes (LAST USED INHALER IN OCT 2016) Asthma Cardiac: No Neurological: No Reproductive Disorders: No Female Reproductive Disorders: Denies Sexually Transmitted Disease: No HIV/AIDS: No Gastrointestinal: Yes Gastroesophageal Reflux Musculoskeletal: No Endocrine: Yes ("NON WORKING THYROID") HEENT: No Loss of Vision: Bilateral Hearing Impairment: Denies Cancer: No Psychosocial: Yes Anxiety, Depression Integumentary: No Blood Disorders: No Adverse Reaction/Blood Tranf: No Family Medical History No Pertinent Family Hx Physical Exam Vital Signs Vital Signs - First Documented 05/03/23 13:10 Temp 36.1 Pulse 91 Resp 17 B/P (MAP) 133/91 (105) O2 Delivery Room Air Capillary Refill : Height, Weight, BMI Height: 5'8.00" Weight: 260lbs. 0.0oz. 117.742093fk; 37.00 BMI Method:Stated General Appearance: WD/WN, no apparent distress, obese HEENT: PERRL/EOMI Cardiovascular: regular rate, rhythm Respiratory: no respiratory distress, no accessory muscle use Gastrointestinal: non tender, soft Hips: bilateral hip non-tender, bilateral hip no evidence of injury Legs: right leg bone tenderness, right leg pain, right leg soft tissue tenderness (Soft tissue tenderness at the proximal fibular head) Knees: bilateral knee normal inspection, bilateral knee no evidence of injury Ankles: right ankle bone tenderness (Tenderness over the right lateral malleolus with some swelling), right ankle swelling Feet: bilateral foot non-tender, bilateral foot normal inspection, bilateral foot normal range of motion, bilateral foot no evidence of injury Neurologic/Tendon: normal sensation, normal motor functions Neurologic/Psychiatric: alert, normal mood/affect, oriented x 3 Skin: normal color, warm/dry Progress/Results/Core Measures Results/Orders My Orders Orders - RAYNE BENNETT MD Tibia/Fibula, Right, 2 Views (05/03/23 13:16) Ankle, Right, 3 Views (05/03/23 13:16) Ketorolac Injection (Toradol Injection) (05/03/23 14:15) Medications Given in ED Current Medications Medications Dose Ordered Sig/Ena Route Start Time Stop Time Status Last Admin Dose Admin Ketorolac Tromethamine 15 mg ONCE ONCE IVP 05/03/23 14:15 05/03/23 14:16 DC 05/03/23 14:18 15 MG Vital Signs/I&O 05/03/23 13:10 Temp 36.1 Pulse 91 Resp 17 B/P (MAP) 133/91 (105) O2 Delivery Room Air Diagnostic Imaging Diagonstic Imaging: Xray Comments [facility], [place] NAME: JENNIE DORADO [facility] REC#: [id number] PT STATUS: REG ER : 1990 PHYSICIAN: RAYNE BENNETT MD ADMIT DATE: 05/03/23/ER Draft Date of Exam:05/03/23 ANKLE, RIGHT, 3 VIEWS INDICATION: fell twisted right ankle; COMPARISON: None. FINDINGS: Multiple radiographic views of the right ankle were obtained. There is no acute fracture or dislocation. No focal osseous lesions are seen. The surrounding soft tissue structures are unremarkable. There are no radiopaque foreign bodies. IMPRESSION: 1. No acute fracture or dislocation in the right ankle. Dictated on workstation # [id number] Dict: 05/03/23 1343 Trans: 05/03/23 1344 CVB [id number] Interpreted by: SHRUTHI ASTORGA MD Electronically signed by: Diagonstic Imaging: Xray Comments [facility], [place] NAME: JENNIE DORADO [facility] REC#: [id number] PT STATUS: REG ER : 1990 PHYSICIAN: RAYNE BENNETT MD ADMIT DATE: 05/03/23/ER Draft Date of Exam:05/03/23 TIBIA/FIBULA, RIGHT, 2 VIEWS INDICATION: fell twisted right ankle; ankle pain COMPARISON: None. FINDINGS: Multiple radiographic views of the right tibia and fibula were obtained and show no fractures, dislocations, or other acute bony abnormalities. Right knee and ankle joint spaces are maintained. The soft tissues appear unremarkable. No unexpected radiopaque foreign bodies are identified. IMPRESSION: Unremarkable radiographic exam of the right tibia or fibula. Dictated on workstation # [id number] Dict: 05/03/23 1347 Trans: 05/03/23 1350 [facility] [id number] Interpreted by: SHRUTHI ASTORGA MD Electronically signed by: Departure Impression Primary Impression: Sprain and strain of ankle Disposition: 01 HOME, SELF-CARE Condition: Stable Departure-Patient Inst. Decision time for Depature: 14:08 Referrals: [facility] (PCP/Family) Primary Care Physician Patient Instructions: Ankle Sprain ED Add. Discharge Instructions: You can keep the right ankle wrapped to help with discomfort. Elevate the ankle to help decrease swelling. Pgie-yoh-dxxpwcy ibuprofen 600 mg which is 3 fgzp-ska-zfsregi ibuprofen tablets every 6 hours with food as needed for pain. Ice packs 20 minutes at a time 3 times a day for the next 3 days. Use the crutches for "toe-touch weightbearing" until tomorrow afternoon. Then you may advance to full weightbearing as tolerated. You should be walking normally on the sprain in 48 hours. Return to the emergency department for any new, concerning or emergent complaints. Work/School Note: Work Release Form Date Seen in the Emergency Department: May 03, 2023 Return to Work: May 05, 2023 Copy Copies To 1: RONAK GAMBOA KATHRYN M MD May 03, 2023 13:18
--- NOTE | 2023-05-03 13:45 | Diagnostic Imaging Report ---
INDICATION: fell twisted right ankle; COMPARISON: None. FINDINGS: Multiple radiographic views of the right ankle were obtained. There is no acute fracture or dislocation. No focal osseous lesions are seen. The surrounding soft tissue structures are unremarkable. There are no radiopaque foreign bodies. IMPRESSION: 1. No acute fracture or dislocation in the right ankle. Dictated by: Dictated on workstation # [id number]
--- NOTE | 2023-05-03 13:51 | Diagnostic Imaging Report ---
INDICATION: fell twisted right ankle; ankle pain COMPARISON: None. FINDINGS: Multiple radiographic views of the right tibia and fibula were obtained and show no fractures, dislocations, or other acute bony abnormalities. Right knee and ankle joint spaces are maintained. The soft tissues appear unremarkable. No unexpected radiopaque foreign bodies are identified. IMPRESSION: Unremarkable radiographic exam of the right tibia or fibula. Dictated by: Dictated on workstation # [id number]
[2023-05-03] MEDS ORDERED: KETOROLAC 15 MG/ML VIAL IVP ONE (14:15)
[2023-05-03 14:20] VITALS: BP 148/88
== END 2023-05-03 14:20 | disposition home or self-care (01) ==
LOC: EDUNIT# 13:10 → ER 13:11
DX: S96.911A Strain of unspecified muscle and tendon at ankle and foot level, right foot, initial encounter (principal); S93.401A Sprain of unspecified ligament of right ankle, initial encounter; Z91.040 Latex allergy status; Z28.310 Unvaccinated for COVID-19; W01.0XXA Fall on same level from slipping, tripping and stumbling without subsequent striking against object, initial encounter; X50.1XXA Overexertion from prolonged static or awkward postures, initial encounter
CPT/HCPCS: 73590; 73610